=== PATIENT | female | born 1995 | race Caucasian/White ===

== ENCOUNTER 2023-07-02 16:31 | Emergency (ER) | payer MEDICAID, SELFPAY | END 2023-07-02 18:04 | disposition left against medical advice (07) | LOC: ER 17:09 | PROVIDERS: Emergency Provider Emergency Medicine; PCP Family Medicine | DX: S89.92XA Unspecified injury of left lower leg, initial encounter (principal); Z53.21 Procedure and treatment not carried out due to patient leaving prior to being seen by health care provider; X58.XXXA Exposure to other specified factors, initial encounter | CPT/HCPCS: 99284 ==

== ENCOUNTER 2023-07-03 10:14 | Emergency (ER) | payer MEDICAID, SELFPAY ==
[2023-07-03] VITALS (10 sets, daily range): PULSE 84–119; RESP 20–24; O2SAT 92–98; BMI 19.5
--- OUTSIDE RECORDS SUMMARY | 2023-07-03 10:19 | XMS_ITS | CCD ---
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 Name Role Phone NAZEMI, JOSHUA I Unavailable Unavailable NAZEMI, JOSHUA I Unavailable Unavailable CROWDER, IMER Unavailable Unavailable NAZEMI, JOSHUA I Unavailable Unavailable NAZEMI, JOSHUA I Unavailable Unavailable CROWDER, IMER Unavailable Unavailable NAZEMI, JOSHUA I Unavailable Unavailable CROWDER, IMER Unavailable Unavailable CROWDER, IMER Unavailable Unavailable GRETA RODRIGES Unavailable Unavailable CROWDER, IMER~[id number] UNKNOWN Unavailable Unavailable CROWDER, IMER~[id number] UNKNOWN Unavailable Unavailable CROWDER, IMER~[id number] UNKNOWN Unavailable Unavailable CROWDER, IMER~[id number] UNKNOWN Unavailable Unavailable CROWDER, IMER~[id number] UNKNOWN Unavailable Unavailable CROWDER, IMER~[id number] UNKNOWN Unavailable Unavailable EdwinSavanah Attending Unavaila ble Crowder, Imer Reese Referring Unavailab le Crowder, Imer Reese Primary Care Unavailab le EdwinSavanah Attending Unavaila ble Crowder, Imer Reese Referring Unavailab le Crowder, Imer Reese Primary Care Unavailab le EdwinSavanah Attending Unavaila ble Crowder, Imer Reese Referring Unavailab le Crowder, Imer Reese Primary Care Unavailab le CrowderImer Unavailable CrowderDO Imer Primary Care Provider DAYRON Fortune Attending Provider CROWDER, DR IMER Zuniga Attending Unavailable CROWDER, DR IMER Zuniga Admitting Unavailable CROWDER, DR IMER Zuniga Consulting Unavailable CROWDER, DR IMER Zuniga Attending Unavailable CROWDER, DR GONSALVESEL A Admitting Unavailable Unavailable Primary Care Provider Unavailabl e Medications Current Medications Medication Drug Class(es) Dates Sig (Normalized) Sig (Original) Acetaminophen (1 source) Acetaminophen (TYLENOL 8 HOUR ORAL) Take by mouth. 0 Active loratadine 10 mg oral tablet (1 source) take 1 tablet by mouth once daily loratadine (CLARITIN) 10 MG tablet Take 10 mg by mouth daily. 0 Active Senna, Sennosides, POWD (1 source) Senna, Sennoside s, POWD Completed/Discontinued Medications Medication Drug Class(es) Dates Sig (Normalized) Sig (Original) bacitracin 0.5 unt/mg topical ointment (3 sources) Start: 10-19-2020 Bacitracin Zinc 500 UNIT/GM External Ointment APPLY TOPICALLY TO WOUND ON RIGHT FOOT TWICE DAILY UNTIL HEALED Quantity: 28 Refills: 0 Ordered: 23-Oct-2020 DO Start : 19-Oct-2020 Active guaiFENesin 400 mg oral tablet (4 sources) Start: 02-02-2021 take 1 tablet by mouth twice daily as needed for congestion Chest Congestion Relief 400 MG Oral Tablet TAKE ONE TABLET BY MOUTH TWICE A DAY NEEDED FOR NASAL CONGESTION Quantity: 20 Refills: 0 Ordered: 02-Feb-2021 DO Start : 02-Feb-2021 Active take 1 tablet by mouth twice karol ly guaifenesin (MUCINEX) 600 MG SR tablet Take 600 mg by mouth 2 times daily. 0 Active No Reported Medications (1 source) No Reported Medications Quantity: 0 Refills: 0 Ordered: 17-Feb-2018 DO Active ondansetron 4 mg oral tablet (3 sources) Serotonin-3 Receptor Antagonist Start: 1 take 1 tablet by mouth every six hours as needed for nausea and vomiting Ondansetron HCl - 4 MG Oral Tablet TAKE ONE TABLET BY MOUTH EVERY 6 HOURS NEEDED FOR NAUSEA AND VOMITING FOR 2 DAYS Quantity: 5 Refills: 0 Ordered: 04-Jul-2021 DO Start : 15-May-2021 Active Ondansetron HCl (ZOFRAN ORAL) Take by mouth. 0 Active Problems Active Problems Problem Classification Problem Date Documented Date Episodic/Chronic Acquired foot deformities (3 sources) Acquired hallux valgus; Translations: [Hallux valgus (acquired)] Chronic Developmental disorders (1 source) Intellectual disability; Translations: [Unspecified intellectual disabilities] Onset: 12-17-2013 Chronic Genitourinary symptoms and ill-defined conditions (5 sources) Frequency of micturition; Translations: [Urgency of urination] Onset: 11-22-2021 Episodic Heart valve disorders (1 source) Pulmonic valve stenosis; Translations: [Nonrheumatic pulmonary valve stenosis] Onset: 12-17-2013 Chronic Other acquired deformities (4 sources) Contracture of hip joint; Translations: [Contracture of joint, pelvic region and thigh] Chronic Other acquired deformities (1 source) Scoliosis deformity of spine; Translations: [Scoliosis, unspecified] Onset: 12-17-2013 Chronic Other acquired deformities (2 sources) Acquired deformity of hip; Translations: [Other acquired deformities of hip] Episodic Other acquired deformities (2 sources) Other specified acquired deformities of left thigh; Translations: [Acquired dysplasia of left hip] Episodic Other congenital anomalies (1 source) Congenital fusion of spine; Translations: [Other congenital malformations of spine, not associated with scoliosis] 09-04-2021 Chronic Other congenital anomalies (1 source) Congenital anomaly of face; 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, unspecified] 09-04-2021 Chronic Other connective tissue disease (4 sources) Spasticity; Translations: [Abnormal involuntary movements] Episodic Other eye disorders (1 source) Nystagmus; Translations: [Unspecified nystagmus] Onset: 12-17-2013 Chronic Other nervous system disorders (1 source) Other acute postprocedural pain; Translations: [Other acute postprocedural pain] Onset: 09-04-2017 Episodic Residual codes; unclassified (1 source) Intact skin; Translations: [Other specified health status] 09-04-2021 Episodic Residual codes; unclassified (1 source) Other specified health status; Translations: [Other specified conditions influencing health status] Episodic Unclassified (1 source) inverted duplication of chromosome 7 / inverted duplication of chromosome 7() Onset: 09-12-2017 Unclassified (1 source) pulmonic stenosis / pulmonic stenosis() Onset: 09-12-2017 Unclassified (1 source) POST OP SUTURE REMOVAL,WEVERE INTELLECTUAL DISABILITY / POST OP SUTURE REMOVAL,WEVERE INTELLECTUAL DISABILITY() Onset: 09-12-2017 Unclassified (1 source) Unknown / UNK(Unknown) Onset: 08-26-2017 Past or Other Problems Problem Classification Problem Date Documented Da te Episodic/Chronic Disorders of teeth and jaw (2 sources) Dental caries; Translations: [Dental caries, unspecified] Onset: 01-06-2017 01-06-2017 Episodic Unclassified (1 source) inverted duplication of chromosome 7; Translations: [inverted duplication of chromosome 7] Onset: 09-12-2017 Unclassified (1 source) pulmonic stenosis; Translations: [pulmonic stenosis] Onset: 09-12-2017 Unclassified (1 source) POST OP SUTURE REMOVAL,WEVERE INTELLECTUAL DISABILITY; Translations: [POST OP SUTURE REMOVAL,WEVERE INTELLECTUAL DISABILITY] Onset: 09-12-2017 Unclassified (4 sources) No history of clinical finding in subject; Translations: [No significant past medical history] Results Test Name Value Interpretation Reference Range Facility Progress Noteson 10-11-2022 Mobile Unit Assistant Authentication Interface Message Text Received call on 10/10 from Anju @ [facility] - requesting to reschedule the PSE appointment for today -- Offered another appointment on 10/14 and 10/15 -- Anju declined -- I explained to her that the surgery on 11/01 would be canceled. ----- Tuesday, October 11, 2022 at 9:35:03 AM ----- ----- Provider: Donna Clay Specialist -- Clinic: [place] ----- Normal [facility] Telephone Encounteron 2022 Mobile Unit Assistant Authentication Interface Message Text Reason for Escalation: Oneyda from [facility] calling in. She wanted to know more information about surgery date, time, and location. It looks like PSE has not been completed just yet. She wanted to speak to the OR leaf tier directly if possible. Oneyda can be reached at [phone]. E-mail sent to Ana 09/23/22 Normal [facility] Progress Noteson 09-03-2022 Mobile Unit Assistant Authentication Interface Message Text [facility] facility (Anju) was contacted for PSE AND OR scheduled -- confirmed information with guardian, also was informed importance of receiving PSE call -- if not received surgery will be canceled----- Saturday, September 03, 2022 at 11:11:13 AM ----- ----- Provider: Donna Clay Specialist -- Clinic: [place] ----- Normal [facility] UA (CLEAN/CATCH) BLASTING CAP ASSEMBLER/MICRO I F IND.on 11-22-2021 Bilirubin Ql (U) Negative Normal NEGATIVE [facility] Comment on above: Performed By: #### U ACSIND, UMICRO #### [facility] [address] [address] [address] Noble Faulkner Clarity (U) CLEAR Normal CLEAR [facility] Comment on above: Performed By: #### U ACSIND, UMICRO #### [facility] [address] [address] [address] Noble Faulkner Color (U) LT. YELLOW Normal YELLOW [facility] Comment on above: Performed By: #### U ACSIND, UMICRO #### [facility] [address] [place] [address] Dr. Noble Faulkner Glucose Ql (U) Negative Normal NEGATIVE [facility] Comment on above: Performed By: #### U ACSIND, UMICRO #### [facility] [address] [address] [address] Noble Faulkner Hemoglobin Ql (U) Negative Normal NEGATIVE [facility] Comment on above: Performed By: #### U ACSIND, UMICRO #### [facility] [address] [address] [address] Noble Faulkner Ketones Ql (U) Negative Normal NEGATIVE [facility] Comment on above: Performed By: #### U ACSIND, UMICRO #### [facility] [address] [address] [address] Noble Faulkner LEUKOCYTES TRACE Abnormal NEGATIVE [facility] Comment on above: Performed By: #### U ACSIND, UMICRO #### [facility] [address] [address] [address] Noble Faulkner Nitrite Ql (U) Negative Normal NEGATIVE [facility] Comment on above: Performed By: #### U ACSIND, UMICRO #### [facility] [address] [address] [address] Noble Faulkner pH (U) 7.5 [pH] Normal 5-9 [facility] Comment on above: Performed By: #### U ACSIND, UMICRO #### [facility] [address] [place] [address] Dr. Noble Faulkner SPEC GRAVITY 1.015 Normal 1.005-<=1.02 5 [facility] Comment on above: Performed By: #### U ACSIND, UMICRO #### [facility] [address] [place] [address] Dr. Noble Faulkner UA PROTEIN Negative Normal NEGATIVE/ TRACE [facility] Comment on above: Performed By: #### U ACSIND, UMICRO #### [facility] [address] [place] [address] Dr. Noble Faulkner UR MICRO IND INDICATED Normal [facility] Comment on above: Performed By: #### U ACSIND, UMICRO #### [facility] [address] [place] [address] Dr. Noble Faulkner Urobilinogen Qn (U) 0.2 {Don'U}/dL Normal 0.2 - 1. 0 [facility] Comment on above: Performed By: #### U ACSIND, UMICRO #### [facility] [address] [place] [address] Dr. Noble Faulkner URINE MICROSCOPIC ONLYon AMORPHOUS CRYSTALS FEW Normal [facility] Comment on above: Performed By: #### U ACSIND, UMICRO #### [facility] [address] [place] [address] Dr. Noble Faulkner BACTERIA TRACE Abnormal NONE SEEN [facility] Comment on above: Performed By: #### U ACSIND, UMICRO #### [facility] [address] [place] [address] Dr. Noble Faulkner Bacteria identified Cx Nom (U) NOT INDICATED Normal [facility] Comment on above: Performed By: #### U ACSIND, UMICRO #### [facility] [address] [place] [address] Dr. Noble Faulkner CAST NONE SEEN Normal NONE SEEN [facility] Comment on above: Performed By: #### U ACSIND, UMICRO #### [facility] [address] [address] [address] Noble Faulkner Crystals LM Nom (Urine sed) SEEN Abnormal NONE SEEN [facility] Comment on above: Performed By: #### U ACSIND, UMICRO #### [facility] [address] [address] [address] Noble Faulkner Epithelial cells LM Ql (Urine sed) FEW Abnormal NONE SEEN /RARE [facility] Comment on above: Performed By: #### U ACSIND, UMICRO #### [facility] [address] [address] [address] Noble Faulkner MUCOUS NONE SEEN Normal NONE SEEN [facility] Comment on above: Performed By: #### U ACSIND, UMICRO #### [facility] [address] [address] [address] Noble Faulkner RBC NONE SEEN Abnormal 0-2 [facility] Comment on above: Performed By: #### U ACSIND, UMICRO #### [facility] [address] [address] [address] Noble Faulkner WBC 0-2 Abnormal NONE SEEN [facility] Comment on above: Performed By: #### U ACSIND, UMICRO #### [facility] [address] [address] [address] Noble Faulkner Established Visit (Orthopaed ic Surgery)on 09-24-2021 Established Visit (Orthopaedic Surgery) Diagnoses/Problems Assessed Hallux valgus, acquired (735.0) (M20.10) Spasticity (781.0) (R25.2) Patient Discussion/Summary Yessys feet do show signs of flat feet, valgus deformity, hallux valgus, but non of these is severe and causes no pain or problems with function. She has flatter feet because of the hallux valgus but an arch is still present. 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 We could not expect her to successfully protect her feet post-operatively if we were to correct them and she might lose the ability to walk. She would not benefit from custom inserts, but should wear well cushioned shoes with wide toe boxes. I felt that she was not a good candidate for surgery before, and she is still not a good candidate. I don't imagine that will change in the future. Provider Impressions She does have bilateral hallux valgus, but she does not have pain with this and her gait pattern is pretty typical appearing other than her mild crouch. It does not seem to affect her feet at all. She is not in any pain with walking. She would benefit the most from shoes that accommodate her feet, including those with a wide toe box. Surgery would be both difficult and there would be a long period of recovery in which she would not be allowed to bear weight. I am not sure if she could be compliant with these restrictions. I also worry that she would lose enough strength to lose the ability to walk following surgery. Her hip has really not changed in the last 6 months and it is unlikely to do so anytime in the near future. I discussed with her caregiver that as long as she is not in any pain, there is no need for routine follow-up for this. We will see her back as needed. History of Present Illness Asha is a 25 year old female with a history of hip dysplasia, inverted duplication of chromosome 7, spasticity, global developmental delay, and congenital fusion of several vertebrae. She presents for follow up of hallux valgus and toe walking today. Her mother is concerned about her gait. She lives in [facility] and is with her caregiver today. She feels that her gait has not changed over the past year. She does not believe that Asha is in pain. Asha does not currently wear any braces or orthotics. She only uses a wheelchair for long distances. She does not take any medications for spasticity. She has had Achilles lengthening and toe surgeries in the past with Dr. Rodriges at [facility]. There has been no concern on the part of the staff at her facility that she has had any pain since we last saw her. 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) Hallux valgus, acquired (735.0) (M20.10) Spasticity (781.0) (R25.2) Past Medical History Problems History of No significant past medical history Surgical History Problems History of Hip Surgery History of Subcutaneous Tenotomy Achilles Tendon Under Gen Anesthesia Family History Mother No pertinent family history Social History Problems Never a smoker Allergies Medication No Known Drug Allergies Recorded By: Savanah Pineda; 02/17/2018 10:59:35 PM Current Meds Medication NameInstruction Bacitracin Zinc 500 UNIT/GM External OintmentAPPLY TOPICALLY TO WOUND ON RIGHT FOOT TWICE DAILY UNTIL HEALED Chest Congestion Relief 400 MG Oral TabletTAKE ONE TABLET BY MOUTH TWICE A DAY NEEDED FOR NASAL CONGESTION Ondansetron HCl - 4 MG Oral TabletTAKE ONE TABLET BY MOUTH EVERY 6 HOURS NEEDED FOR NAUSEA AND VOMITING FOR 2 DAYS Physical Exam General: Well developed, well nourished female in no acute distress. Skin: The skin is intact with no evidence of abrasions, bruises, or swelling. Vascular: There are 2+ pulses in both lower extremities and brisk capillary refill. Neuro: The light touch sensation is intact in both legs. She has bilateral hip flexor contractures, but she straightens out a little more with assistance while standing. She has very mild bilateral knee flexion contractures. She can walk independently. She has good knee and ankle ROM. She does not have excessive amounts of internal or external rotation through her hips. She has excellent mobility of her arms including FROM of both shoulders, elbows, forearms, and wrists. She sat in her chair and was extremely reluctant to stand, but could without difficulty. She has flat feet. She sat in her wheelchair with minimal assistance. She has developed pretty significant hallux valgus bilaterally, but the heel cords are not tight. Signatures Electronically signed by : Savanah Pineda MD; Sep 30 2021 12:40PM EST (Author) Normal [facility] Established Visit (Orthopaed ic Surgery)on 02-20-2021 Established Visit (Orthopaedic Surgery) Diagnoses/Problems Assessed Spasticity (781.0) (R25.2) Acquired dysplasia of left hip (736.39) (M21.852) Hallux valgus, acquired (735.0) (M20.10) Provider Impressions She does have bilateral hallux valgus, but she does not have pain with this and her gait pattern is pretty typical appearing other than her mild crouch. It does not seem to affect her feet at all. She is not in any pain with walking. She would benefit the most from shoes that accommodate her feet, including those with a wide toe box. Surgery would be both difficult and there would be a long period of recovery in which she would not be allowed to bear weight. I am not sure if she could be compliant with these restrictions. I also worry that she would lose enough strength to lose the ability to walk following surgery. Her hip has really not changed in the last 6 months and it is unlikely to do so anytime in the near future. I discussed with her caregiver that as long as she is not in any pain, there is no need for routine follow-up for this. We will see her back as needed. History of Present Illness Asha is a 25 year old female who presents today for follow up. She was recently diagnosed with a foot fungus and hallux valgus of both feet. She is with her caregiver and he does not believe that she is in any pain. She is ambulatory and uses the wheelchair for community use. She has a history of hip dysplasia, inverted duplication of chromosome 7, spasticity, global developmental delay, and congenital fusion of several vertebrae. She has been living in [facility] for 5 years. Asha does not currently wear any braces or orthotics. She does not take any medications for spasticity. 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) Spasticity (781.0) (R25.2) Past Medical History Problems History of No significant past medical history Surgical History Problems History of Hip Surgery History of Subcutaneous Tenotomy Achilles Tendon Under Gen Anesthesia Family History Mother No pertinent family history Social History Problems Never a smoker Allergies Medication No Known Drug Allergies Recorded By: Savanah Pineda; 02/17/2018 10:59:35 PM Current Meds Medication NameInstruction Bacitracin Zinc 500 UNIT/GM External OintmentAPPLY TOPICALLY TO WOUND ON RIGHT FOOT TWICE DAILY UNTIL HEALED Chest Congestion Relief 400 MG Oral TabletTAKE ONE TABLET BY MOUTH TWICE A DAY NEEDED FOR NASAL CONGESTION Physical Exam General: Well developed, well nourished female in no acute distress. Skin: The skin is intact with no evidence of abrasions, bruises, or swelling. Vascular: There are 2+ pulses in both lower extremities and brisk capillary refill. Neuro: The light touch sensation is intact in both legs. She has bilateral hip flexor contractures, but she straightens out a little more with assistance while standing. She has very mild bilateral knee flexion contractures. She can walk independently. She has good knee and ankle ROM. She does not have excessive amounts of internal or external rotation through her hips. She has excellent mobility of her arms including FROM of both shoulders, elbows, forearms, and wrists. She sat on the floor for about half of her visit today, and needed a little assistance to stand, but then she stood quite well and walked relatively easily to her wheelchair. She sat in her wheelchair with minimal assistance. She has developed pretty significant hallux valgus bilaterally, but the heel cords are not tight. Signatures Electronically signed by : Savanah Pineda MD; Feb 20 2021 3:07PM EST (Author) Normal [employer] Progress Noteon 02-27-2018 HIM IP Note OR Mobile Unit Assistant Normal [facility] Progress Noteon 01-23-2018 HIM IP Note OR Mobile Unit Assistant Normal [facility] Progress Noteon 12-26-2017 HIM IP Note OR Mobile Unit Assistant Normal [facility] Progress Noteon 12-05-2017 HIM IP Note OR Mobile Unit Assistant Normal [facility] Progress Noteon 11-21-2017 HIM IP Note OR Mobile Unit Assistant Normal [facility] Progress Noteon 11-09-2017 HIM IP Note OR Mobile Unit Assistant Normal [facility] Progress Noteon 10-16-2017 HIM IP Note OR Mobile Unit Assistant Normal [facility] Progress Noteon 10-10-2017 HIM IP Note OR Mobile Unit Assistant Normal [facility] Progress Noteon 09-27-2017 HIM IP Note OR Mobile Unit Assistant Normal [facility] Progress Noteon 09-17-2017 HIM IP Note OR Mobile Unit Assistant Normal [facility] Homocysteineon 09-13-2017 Homocysteine 8.5 umol/L Normal <15.0 [facility] Comment on above: Result Comment: Perf ormed at [address] [place], [place] [id number] ([phone] Performed By: #### C BC, HOCYS ####[facility] [place], [place] [id number] #### CP ####[address] [place] [address] CBCon 09-12-2017 Erythrocyte distribution width Auto Ratio (RBC) 11.9 % Normal 11.8-14.4 [facility] Comment on above: Performed By: #### C BC, HOCYS ####[address] [address] #### CP ####[address] [place] [address] Erythrocytes (RBC) 4.79 10*6/uL Normal 3.95-5.11 [facility] Comment on above: Performed By: #### C MARYA, HOCYS ####[address] [address] #### CP ####[address] [place] [address] Erythrocytes (RBC) 0.0 per 100 WBC Normal 0.0 [facility] Comment on above: Result Comment: Perf ormed at [address] [address] Performed By: #### C MARYA, HOCYS ####[address] [address] #### CP ####[address] [place] [address] Hematocrit (HCT) 42.9 % Normal 36.3-47.1 [facility] Comment on above: Performed By: #### C MARYA, HOCYS ####[address] [address] #### CP ####[address] [place] [address] Hemoglobin mass conc (Bld) 14.9 g/dL Normal 11.9-15.1 [facility] Comment on above: Performed By: #### C BC, HOCYS ####[address] [address] [address] #### CP ####[address] [place] [address] MCH 31.1 pg Normal 25.2-33.5 [facility] Comment on above: Performed By: #### C MARYA, HOCYS ####[address] [address] #### CP ####[address] [place] [address] MCHC mass conc (RBC) 34.7 g/dL Normal 28.4-34.8 [facility] Comment on above: Performed By: #### C MARYA, HOCYS ####[address] [address] #### CP ####[address] [place] [address] MCV 89.6 fL Normal 82.6-102.9 [facility] Comment on above: Performed By: #### C MARYA, HOCYS ####[address] [address] #### CP ####[address] [place] [address] Platelet mean volume (PMV) 10.9 fL Normal 8.1-13.5 [facility] Comment on above: Performed By: #### C MARYA, HOCYS ####[address] [address] #### CP ####[address] [place] [address] Platelets 170 10*3/uL Normal 138-453 [facility] Comment on above: Performed By: #### C MARYA, HOCYS ####[address] [address] #### CP ####[address] [place] [address] WBC (Leukocytes) 8.7 10*3/uL Normal 4.5-13.5 [facility] Comment on above: Performed By: #### C MARYA, HOCYS ####[address] [address] #### CP ####[address] , [facility]83 Comp Metabolic Profon 2017 (cont.) Normal [facility] Comment on above: Result Comment: Aver age GFR for 20-29 years old: 116 mL/min/1.73sq mChronic Kidney Disease: <60 mL/min/1.73sq mKidney failure: <15 mL/min/1.73sq meGFR calculated using average adult body mass. Additional eGFR calculator available at:http://www.3sun.[employer]/multiple_crcl_2012.htm Performed By: #### Alexys MALHOTRA HOCYS ####[address] [address] #### CP ####[address] [place] [address] Alanine aminotransferase (ALT) 18 U/L Normal 5-33 [facility] Comment on above: Performed By: #### Alexys MALHOTRA, HOCYS ####[address] [address] #### CP ####[address] [place] [address] Albumin 4.2 g/dL Normal 3.5-5.2 [facility] Comment on above: Performed By: #### Alexys MALHOTRA, HOCYS ####[address] [address] #### CP ####[address] [place] [address] Albumin/Globulin Ratio 1.3 {ratio} Normal 1.0-2.5 [facility] Comment on above: Performed By: #### C BC, HOCYS ####[address] [address] #### CP ####[address] [place] [address] Alkaline Phos 112 U/L High 35-104 [facility] Comment on above: Performed By: #### C BC, HOCYS ####[address] [address] #### CP ####[address] [place] [address] Anion gap 12 mmol/L Normal 9-17 [facility] Comment on above: Performed By: #### C BC, HOCYS ####[address] [address] #### CP ####[address] [place] [address] Aspartate aminotransferase (AST) 25 U/L Normal <32 [facility] Comment on above: Performed By: #### C BC, HOCYS ####[address] [address] #### CP ####[address] [place] [address] Bilirubin Ql (U) 0.60 mg/dL Normal 0.3-1.2 [facility] Comment on above: Performed By: #### C BC, HOCYS ####[address] [address] #### CP ####[address] [place] [address] BUN/CRE Ratio 25 High 9-20 [facility] Comment on above: Performed By: #### C BC, HOCYS ####[address] [address] #### CP ####[address] [place] [address] Calcium 9.5 mg/dL Normal 8.6-10.4 [facility] Comment on above: Performed By: #### C BC, HOCYS ####[address] [address] #### CP ####[address] [place] [address] Chloride 103 mmol/L Normal 98-107 [facility] Comment on above: Performed By: #### C BC, HOCYS ####[address] [address] #### CP ####[address] [place] [address] CO2 24 mmol/L Normal 20-31 [facility] Comment on above: Performed By: #### C BC, HOCYS ####[address] [address] #### CP ####[address] [place] [address] Creatinine 0.69 mg/dL Normal 0.50-0.90 [facility] Comment on above: Performed By: #### C BC, HOCYS ####[address] [address] #### CP ####[address] [place] [address] eGFR (non-black) mL/min/{1.73_m2} Normal >60 [facility] Comment on above: Performed By: #### C BC, HOCYS ####[place] [place] [address] #### CP ####[address] [place] [address] Glucose mass conc 97 mg/dL Normal 70-99 [facility] Comment on above: Performed By: #### C BC, HOCYS ####[address] [address] #### CP ####[address] [place] [address] Potassium molar conc 4.0 mmol/L Normal 3.7-5.3 [facility] Comment on above: Performed By: #### C BC, HOCYS ####[address] [address] #### CP ####[address] [place] [address] Protein 7.5 g/dL Normal 6.4-8.3 [facility] Comment on above: Performed By: #### C BC, HOCYS ####[address] [address] #### CP ####[address] [place] [address] Sodium 139 mmol/L Normal 135-144 [facility] Comment on above: Performed By: #### C BC, HOCYS ####[address] [address] #### CP ####[address] [place] [address] Staging: Normal [facility] Comment on above: Result Comment: Stag e 1: Some kidney damage normal GFRStage 2: Mild kidney damage GFR 60-89Stage 3: Moderate kidney damage GFR 30-59Stage 4: Severe kidney damage GFR 15-29Stage 5: Severe kidney damage GFR <15ESRD - chronic treatment by dialysis or transplantPerformed at [address] [place] [address] Performed By: #### C BC, HOCYS ####[facility] [address] [place] [address] #### CP ####[address] [place] [address] Urea nitrogen 17 mg/dL Normal 6-20 [facility] Comment on above: Performed By: #### C BC, HOCYS ####[facility] [address] [place] [address] #### CP ####[address] [place] [address] History and Physicalon 09-12 HIM IP Note OR Mobile Unit Assistant Normal [facility] Op Noteon 09-12-2017 HIM IP Note OR Mobile Unit Assistant Normal [facility] Progress Noteon 09-12-2017 HIM IP Note OR Mobile Unit Assistant Normal [facility] HIM IP Note OR Mobile Unit Assistant Normal [facility] Progress Noteon 09-05-2017 HIM IP Note OR Mobile Unit Assistant Normal [facility] HCG Screen, Bloodon 09-05-19 18 HCG Qn Negative Normal NEG [facility] Comment on above: Result Comment: Spec imens with hCG levels near the threshold of the test (25 mIU/mL) may give a negative or indeterminate result. In such cases, another test should be performed with a new specimen in 48-72 hours. If early is suspected clinically in this setting, correlation with quantitative serum b-hCG level is suggested.[facility] has confirmed the use of plasma for this test. This has not been cleared or approved by the U.S. Food and Drug Administration. The FDA has determined that such clearance is not necessary.Performed at [address] [place] [id number] ([phone] Performed By: #### H CG ####[address] [place] [address] Op Noteon 09-04-2017 HIM IP Note OR Mobile Unit Assistant Normal [facility] Progress Noteon 09-04-2017 HIM IP Note OR Mobile Unit Assistant Normal [facility] HIM IP Note OR Mobile Unit Assistant Normal [facility] HIM IP Note OR Mobile Unit Assistant Normal [facility] HIM IP Note OR Mobile Unit Assistant Normal [facility] HIM IP Note OR Mobile Unit Assistant Normal [facility] Surgical Pathologyon 018 Surgical Pathology (NOTE)[id number] Y LABORATORIESCONSULTING PATHOLOGISTS [facility] [id number] [place] [address]. [place] [id number] Fax: SURGICAL PATHOLOGY CONSULTATIONPatient Name: [facility] Rec: [id number] Number: [id number]: 09/04/2017Received: 09/05/2017Reported: 09/09/2017 11:14-- Diagnosis --SKIN AND SOFT TISSUE, BACK, EXCISIONS: - MULTIPLE PORTIONS OF INFLAMED KELOIDS.Home Avila M.D.Electronically Signed Outjet09/05/2017Cash davies InformationPre-op Diagnosis: PAINFUL CYSTS ON BACK Operative Findings: BACK LESIONSOperation Performed: INCISION AND DRAINAGESource of Specimen1: BACK LESIONS (A)Gross Description RADHA SMITH BACK LESIONS Fragments of unoriented yu skinand subcutaneous tissue, 4.8 x 4.5 x 1.2 cm in aggregate. Sectioningreveals fibrotic cut surfaces. Entirely in 3cs. as Microscopic DescriptionThe sections show dermis with a proliferation of densely packedeosinophilic collagen bundles arranged in a haphazard array. Withinthe thickened collagen bundles, there are pseudocystic spacescontaining basophilic material, suggestive of corticosteroid deposits.In some areas, fascicles contain cells with foamy cytoplasm. An [id number] was performed and appears negative in these foci,excluding a granular cell tumor. Controls stain appropriately. Normal [facility] History and Physicalon 09-01 [facility] IP Note OR Mobile Unit Assistant Normal [facility] CNOVon 08-26-2017 CNOV Office Visit (ORTPMN) JOB SMITH TYRA Zuniga ([id number]) 1995 FDate Time Provider Department08/26/17 10:45 AM GRETA RODRIGES ORTPMN During your visit today, we recorded the following information about you:Greta Rodriges MD 08/26/2017 11:14 AM SignedI have reviewed the history and physical obtained and documented by theresident and I personally participated in the coelho components. I agree with thefindings and plan of care, with the additions contained within my dictation.Greta Rodriges M.D.Timoteo Head DO 08/26/2017 11:23 AM SignedPEDIATRIC ORTHOPEDIC CONSULTHPI:Radha Smith is a 21 year old female with h/p CP who is here for anevaluation of spine/pelvis. She is non communicative. Her transporter isunaware of what needs to be checked. There has been no change in Radha'sactivity level. She does walk which hasn't changed. She doesn't complain ofpain.No past medical history on file.Current Outpatient Prescriptions:baclofen 10 mg ORAL tablet Take 1 tablet by mouth three times daily. Start with1 tab daily at bedtime, increase to a maximum dose of 2 tabs three times a dayNo current facility-administered medications for this visit.ALLERGIESNo Known AllergiesAll history, allergies and medications have been reviewed.EXAM:General: uncooperative but she does walk in office. She is not a fan of havingher legs manipulatedNegative for: tendernessNeurovascular: intactPHYSICAL EXAMINATION:General physical exam reveals a well-developed, well?nourished female in noacute distress.AlertExternal appearance of the eyes, ears and nose is normal.Hearing is grossly intact.Respirations are unlabored with normal chest expansion.Skin is without rashes, lesions or ulcers.Normal skin temperature, turgor and texture.MUSCULOSKELETAL EXAMNormal gait and station.The spine is clinically straight. There is no shoulder height asymmetry.. Thehead is centered over the midline. The pelvis is forward tilted. There is nothoracic or lumbar asymmetry with forward bendingMotor strength is 5/5 in the hip flexors, knee extensors, ankle dorsiflexorsand EHL.X-ray: not doneIMPRESSION:CP checkPLAN:Would like to have x-rays sent in to look at. Since her activity is stable andshfransico isn't having pain wouldn't recommend any change at this point. Will need toreview x-rays for final recommendations.Patient Instructions:Send x-rays for review. 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 She is non communicative. Her transporteris unaware of what needs to be checked. There has been no change inMaddison's activity level. She does walk which hasn't changed. She doesn'tcomplain of pain.No past medical history on file.Current Outpatient Prescriptions:baclofen 10 mg ORAL tablet Take 1 tablet by mouth three times daily. Startwith 1 tab daily at bedtime, increase to a maximum dose of 2 tabs threetimes a dayNo current facility-administered medications for this visit.ALLERGIESNo Known AllergiesAll history, allergies and medications have been reviewed.EXAM:General: uncooperative but she does walk in office. She is not a fan ofhaving her legs manipulatedNegative for: tendernessNeurovascular: intactPHYSICAL EXAMINATION:General physical exam reveals a well-developed, well?nourished female inno acute distress.AlertExternal appearance of the eyes, ears and nose is normal.Hearing is grossly intact.Respirations are unlabored with normal chest expansion.Skin is without rashes, lesions or ulcers.Normal skin temperature, turgor and texture.MUSCULOSKELETAL EXAMNormal gait and station.The spine is clinically straight. There is no shoulder height asymmetry.. The head is centered over the midline. The pelvis is forward tilted.There is no thoracic or lumbar asymmetry with forward bendingMotor strength is 5/5 in the hip flexors, knee extensors, ankledorsiflexors and EHL.X-ray: not doneIMPRESSION:CP checkPLAN:Would like to have x-rays sent in to look at. Since her activity is stableand she isn't having pain wouldn't recommend any change at this point.Will need to review x-rays for final recommendations.Patient Instructions:Send x-rays for review. Continue PT with emphasis on stretching.Timoteo Head, DO Normal [facility] PROGRESS HNO ID: [id number] thor: Greta Giordano: (none)Author Type: PhysicianType: Progress NotesFiled: 08/26/2017 11:14 AMNote Text:I have reviewed the history and physical obtained and documented by theresident and I personally participated in the coelho components. I agree withthe findings and plan of care, with the additions contained within mydictation.Greta Rodriges M.D. Normal [facility] Progress Noteon 08-20-2017 HIM IP Note OR Mobile Unit Assistant Normal [facility] HIM IP Note OR Mobile Unit Assistant Normal [facility] Progress Noteon 08-09-2017 HIM IP Note OR Mobile Unit Assistant Normal [facility] OT-XR HIPS RANGEL 5V W PELVIS I MPORTon 07-09-2017 OT-XR HIPS RANGEL 5V W PELVIS IMPORT Images were obtained outside of [facility] [id number] Normal [facility] OT-XR L-SPINE MIN 4 VIEWS IM PORTon 07-09-2017 OT-XR L-SPINE MIN 4 VIEWS IMPORT Images were obtained outside of [facility] [id number] Normal [facility] Vital Signs Date Time Vital Sign Value Performing Clinician Satnam saravia 09-04-2021 15:32-0400 Body height 147.32 cm DO Imer Crowder Work Phone: [facility] 09-04-2021 15:32-0400 Body mass index (BMI) [Ratio] 30.2 kg/m2 DO Imer Crowder Work Phone: [facility] 09-04-2021 15:32-0400 Body weight 65.48 kg DO Imer Crowder Work Phone: [facility] 09-04-2021 15:12-0400 Body temperature 98.4 [degF] DO Imer Crowder Work Phone: [facility] 09-04-2021 15:12-0400 Respiratory rate 24 /min DO Imer Crowder Work Phone: [facility] Encounters Encounter Date Encounter Type Care Provider Facility Start: 09-23-2022 Telephone encounter Juan Manuel mills DDS Work Phone: [facility] Comment on above: Dental Start: 11-22-2021 End: 11-22-[address] IMER CROWDER Facility:[facility] Start: 09-24-2021 Office outpatient vi sit 15 minutes Imer Crowder Work Phone: [facility] [address] Work Phone: Start: 09-24-2021 Patient encounter procedure Imer Crowder Work Phone: [facility] Work Phone: Start: 09-05-[address] IMER CROWDER Fac ility:[facility] Start: 09-04-2021 End: 09-04-2021 Discharged Recurring DO Imer Crowder Work Phone: [facility] [place] Start: 02-20-2021 Office outpatient vi sit 15 minutes Imer Crowder Work Phone: [facility] Work Phone: Start: 02-07-2021 AUDIT Imer starkey Work Phone: [facility] Work Phone: Start: 09-14-2018 Patient encounter procedure Savanah Pineda Facility:[id number] Start: 08-18-2018 Patient encounter procedure Savanah Pineda Facility:[id number] Start: 04-28-2018 End: 04-29-2018 Patient encounter procedure IMER~[id number] UNKNOWN CROWDER Facility:[facility] [place] [place] Start: 02-17-2018 Patient encounter procedure Savanah Pineda Facility:[id number] Start: 10-07-2017 End: 10-08-2017 Patient encounter procedure IMER~[id number] UNKNOWN CROWDER Facility:[facility] [place] [place] Start: 09-12-2017 End: 09-13-2017 Ambulatory JOSHUA I NAZEMI [facility] Start: 09-04-2017 End: 09-04-2017 Ambulatory JOSHUA I NAZEMI [facility] Start: 08-26-2017 End: 08-27-2017 Ambulatory GRETA RODRIGES [facility] Start: 08-05-2017 End: 08-06-2017 Patient encounter procedure IMER~[id number] UNKNOWN CROWDER Facility:[facility] [place] [place] Procedures Date Procedure Procedure Detail Performing Clinician Start: 09-12-2017 DISCHARGE PATIENT STEPHON ZEMI Start: 09-12-2017 CBC BETTIZEMI Start: 09-12-2017 COMPREHENSIVE METABO LIC PANEL BETTIZEMI Start: 09-12-2017 HOMOCYSTEINE, SERUM BET TIZEMI Start: 09-04-2017 DISCHARGE PATIENT STEPHON ZEMI Start: 09-04-2017 SURGICAL PATHOLOGY BETT IZEMI Start: 09-04-2017 HCG, SERUM, QUALITATIVE BETTIZEMI Start: 09-04-2017 HCG, QUANTITATIVE, BETTIZEMI Start: 09-04-2017 INSERT PERIPHERAL IV BE TTIZEMI Start: 09-04-2017 , URINE BETTIZ LOURDES Hip Surgery Imer wilcox Work Phone: Subcutaneous Tenotom y Achilles Tendon Under Gen Anesthesia Imer Crowder Work Phone: Plan of Treatment Date Care Activity Detail Author Start: 2046 Shingles (RZV) Vacci ne (1 of 2) Shingles (RZV) Vaccine (1 of 2) [facility] Start: 11-01-2022 End: 11-01-2022 Admission to same day surgery center 11/01/2022 Surgery Ambulatory Surgery Yordy Bronson, DDS [address] [place] [address] DENTAL RESTORATIONS [facility] Comment on above: DENTAL RESTORATIONS Start: 11-01-2022 End: 11-01-2022 DENTAL RESTORATIONS DENTAL RESTORATIONS Routine scheduled Caries 11/01/2022 11:28 AM EDT [facility] Start: 11-01-2022 Subsequent hospital visit by physician 11/01/2022 Hospital Encounter Ambulatory Surgery Lizbeth Romerorebeca Yordy, DDS [address] [place] [address] [facility] Start: 10-11-2022 End: 10-11-2022 Patient encounter procedure 10/11/2022 Office Visit Pediatric Comp Care Ayad Heck MD [facility] [place] [address] [facility] Start: 02-20-2021 FUV, Provider: Savanah Pineda, Status: Pen, Time: 1:45 PM FUV, Provider: Savanah Pineda, Status: Pen, Time: 1:45 PM [facility] Work Phone: Start: 2017 Screening for malign ant neoplasm of cervix Pap Smear [facility] Start: 2014 Hepatitis C screening [facility]atitis C [facility] Start: 2014 Tetanus + diphtheria + acellular pertussis vaccine (product) [facility] Start: 12-25-2011 HIV screening HIV Test [facility] Start: 12-25-2007 Vaccination for cabrera n papillomavirus Human Papilloma (HPV) Vaccine (1 - 2-dose series) [facility] Start: 06-26-1997 COVID-19 Vaccine (#1) COVID-19 Vacci ne (#1) [facility] Immunizations Immunization Date Immunization Notes Care Provider Fa cili 04-04-2021 influenza, injectabl e, quadrivalent, preservative free [facility]ias[facility] DDS Work Phone: [facility] 03-15-2014 TD(adult) unspecifie d formulation [facility]Drisshni DDS Work Phone: [facility] 09-21-2010 hepatitis A vaccine, pediatric/adolescent dosage, 2 dose schedule [facility] DDS Work Phone: [facility] 09-25-2009 hepatitis A vaccine, pediatric/adolescent dosage, 2 dose schedule [facility] DDS Work Phone: [facility] 09-25-2009 meningococcal polysa ccharide vaccine (MPSV4) [facility]: [facility] 04-22-2002 diphtheria and tetan us toxoids, adsorbed for pediatric use [facility] Work [facility]: [facility] 04-22-2002 measles, mumps and r ubella virus vaccine [facility] Work [facility]: [facility] 04-22-2002 poliovirus vaccine, inactivated [facility] Work Phone: [facility] 04-22-2002 varicella virus vaccine Lait h Id-Drisshni DDS Work Phone: [facility] 01-14-2002 diphtheria and tetan us toxoids, adsorbed for pediatric use Juan Manuel Al-Drisshni DDS Work Phone: [facility] 01-14-2002 measles, mumps and r ubella virus vaccine Juan Manuel Al-Mashni DDS Work Phone: [facility] 01-14-2002 poliovirus vaccine, inactivated Juan Manuel Al-Mashni DDS Work Phone: [facility] 08-08-1998 diphtheria and tetan us toxoids, adsorbed for pediatric use Juan Manuel Al-Mashni DDS Work Phone: [facility] 08-08-1998 haemophilus influenz ae type b vaccine, conjugate unspecified formulation Juan Manuel Al-Mashni DDS Work Phone: [facility] 08-08-1998 hepatitis B vaccine, pediatric or pediatric/adolescent dosage Juan Manuel Al-Mashni DDS Work Phone: [facility] 08-08-1998 poliovirus vaccine, inactivated Juan Manuel Al-Mashni DDS Work Phone: [facility] 06-30-1998 measles, mumps and r ubella virus vaccine Juan Manuel Al-Mashni DDS Work Phone: [facility] 09-01-1997 diphtheria and tetan us toxoids, adsorbed for pediatric use Juan Manuel Al-Mashni DDS Work Phone: [facility] 09-01-1997 haemophilus influenz ae type b vaccine, conjugate unspecified formulation Juan Manuel Al-Mashni DDS Work Phone: [facility] 06-30-1997 diphtheria and tetan us toxoids, adsorbed for pediatric use Juan Manuel Al-Mashni DDS Work Phone: [facility] 06-30-1997 poliovirus vaccine, inactivated Juan Manuel Al-Mashni DDS Work Phone: [facility] 03-25-1997 diphtheria, tetanus toxoids and acellular pertussis vaccine, unspecified formulation Juan Manuel Al-Mashni DDS Work Phone: [facility] 03-25-1997 haemophilus influenz ae type b vaccine, conjugate unspecified formulation Juan Manuel Al-Mashni DDS Work Phone: [facility] 02-23-1997 hepatitis B vaccine, pediatric or pediatric/adolescent dosage Juan Manuel Al-Mashni DDS Work Phone: [facility] 02-23-1997 poliovirus vaccine, inactivated Juan Manuel Aleman DDS Work Phone: [facility] 1996 hepatitis B vaccine, pediatric or pediatric/adolescent dosage Juan Manuel Aleman DDS Work Phone: [facility] Payers Date Payer Category Payer Medicaid [id number] 1996 Unknown [id number] [id number] [id number] 1995 Unknown [id number] [id number] 1995 Unknown [id number] 2.16.84 [id number] 1996 Unknown [id number] 2.16. [id number] 1995 Unknown [id number] 2.16. [id number] 1995 Unknown [id number] 1995 Unknown [id number] [id number] [id number] 1995 Unknown [id number] 1958 Medicaid [id number] Self-pay Self Pay [id number] Unknown MEDICAID Unknown Self Pay [id number] Social History Date Type Detail Facility Never a smoker Never a smoker [facility] Work Phone: Start: 1995 Sex Assigned At Female [facility] Tobacco smoking status CAIS Tobacco [facility] consumption [facility] Start: 1995 Sex Assigned At Not on file [facility] Telephone encounter Note 09-23-2022 Telephone Encounter - Saima Sanchez - 09/23/2022 1:32 PM EDT Note Date & Type Note Facility 09-23-2022 Telephone encounter Note Form atting of this note might be different from the original. Reason for Escalation: Oneyda from [place] calling in. She wanted to know more information about surgery date, time, and location. It looks like PSE has not been completed just yet. She wanted to speak to the OR leaf tier directly if possible. Oneyda can be reached at [phone]. E-mail sent to Ana 09/23/22 [facility] Note 09-23-2022 Telephone Encounter - Saima Sanchez - 09/23/2022 1:32 PM EDT Note Date & Type Note Facility 09-23-2022 Miscellaneous Notes Formattin g of this note might be different from the original. Reason for Escalation: Oneyda from [place] calling in. She wanted to know more information about surgery date, time, and location. It looks like PSE has not been completed just yet. She wanted to speak to the OR leaf tier directly if possible. Oneyda can be reached at [phone]. E-mail sent to Ana 09/23/22 documented in this encounter [facility] History of Present illness Narrative 09-30-2020 Note Date & Type Note Facility 09-30-2020 History of Present illness Narrative Asha is a 25 year old female with a history of hip dysplasia, inverted duplication of chromosome 7, spasticity, global developmental delay, and congenital fusion of several vertebrae. She presents for follow up of hallux valgus and toe walking today. Her mother is concerned about her gait. She lives in [facility] and is with her caregiver today. She feels that her gait has not changed over the past year. She does not believe that Asha is in pain. Asha does not currently wear any braces or orthotics. She only uses a wheelchair for long distances. She does not take any medications for spasticity. She has had Achilles lengthening and toe surgeries in the past with Dr. Rodriges at [facility]. There has been no concern on the part of the staff at her facility that she has had any pain since we last saw her. [place] [id number] Work Phone: History of Present illness Narrative 09-25-2020 Note Date & Type Note Facility 09-25-2020 History of Present illness Narrative Asha is a 25 year old female with a history of hip dysplasia, inverted duplication of chromosome 7, spasticity, global developmental delay, and congenital fusion of several vertebrae. She presents for follow up of hallux valgus and toe walking today. Her mother is concerned about her gait. She lives in [facility] and is with her caregiver today. She feels that her gait has not changed over the past year. She does not believe that Asha is in pain. Asha does not currently wear any braces or orthotics. She only uses a wheelchair for long distances. She does not take any medications for spasticity. She has had Achilles lengthening and toe surgeries in the past with Dr. Rodriges at [facility]. There has been no concern on the part of the staff at her facility that she has had any pain since we last saw her. [place] [address] Work Phone: Evaluation note Note Date & Type Note Facility Evaluation note Diagnosis Onset Date Intact skin acute [facility] Work Phone: History of Present illness Narrative Note Date & Type Note Facility History of Present illness Narrative Asha is a 25 year old female who presents today for follow up. She was recently diagnosed with a foot fungus and hallux valgus of both feet. She is with her caregiver and he does not believe that she is in any pain. She is ambulatory and uses the wheelchair for community use. She has a history of hip dysplasia, inverted duplication of chromosome 7, spasticity, global developmental delay, and congenital fusion of several vertebrae. She has been living in [facility] for 5 years. Asha does not currently wear any braces or orthotics. She does not take any medications for spasticity. [facility] Work Phone: Summary Purpose Family History No Family History Records FoundUnknown Family Member Name Dates Details No pertinent family history: Mother(V49.89, Z78.9) Status:Active Unknown Family Member Name Dates Details No pertinent family history: Mother(V49.89, Z78.9) Status:Active Unknown Family Member Name Dates Details No pertinent family history: Mother(V49.89, Z78.9) Status:Active Unknown Family Member Name Dates Details No pertinent family history: Mother(V49.89, Z78.9) Status:Active Advance Directives No Advanced Directives Records Found Advance Directive Response Recorded Date/ Time Advance Directives No August 30 022 9:36am Chief Complaint and Reason for Visit Chief Complaint 2 @ rt foot/ pos stg 1 lower back/ [place] Reason for Visit Intact skin Additional Source Comments INFORMATION SOURCE (unrecogn ized section and content) DATE CREATED AUTHOR 11/27/2017 [facility] DATE CREATED AUTHOR AUTHOR'S ORGANIZ ATION 12/11/2017 [facility] DATE CREATED AUTHOR AUTHOR'S ORGANIZ ATION 03/27/2018 [facility] DATE CREATED AUTHOR AUTHOR'S ORGANIZ ATION 05/18/[address] [facility] DATE CREATED AUTHOR AUTHOR'S ORGANIZ ATION 09/15/2018 [facility] DATE CREATED AUTHOR AUTHOR'S ORGANIZ ATION 10/01/2021 [facility] DATE CREATED AUTHOR AUTHOR'S ORGANIZ ATION 11/24/2021 [facility] DATE CREATED AUTHOR AUTHOR'S ORGANIZ ATION 10/14/2022 [facility] Care Teams (unrecognized sec tion and content) Team Status: Inactive Member Role Status Dates Imer Crowder DO Primary Care Provider Active Laura Fortune APRN Attending Provider Active Team Status: Active Member Role Status Dates Imer Crowder DO Primary Care Provider Active Goals (unrecognized section and content) Goals may be documented in a n alternate section Reason for Visit (unrecogniz ed section and content) Reason Onset Date Comments Dental 09/23/2022 FOR RECORDS PERTAINING TO PATIENTS WHO ARE OR HAVE BEEN ENROLLED IN A CHEMICAL DEPENDENCY/SUBSTANCEABUSE PROGRAM, SOME INFORMATION MAY BE OMITTED. This clinical summary was aggregated from multiple sources. Caution should be exercised in using it in the provision of clinical care. This summary normalizes information from multiple sources, and as a consequence, information in this document may materially change the coding, format and clinical context of patient data. In addition, data may be omitted in some cases. CLINICAL DECISIONS SHOULD BE BASED ON THE PRIMARY CLINICAL RECORDS. [facility]. provides no warranty or guarantee of the accuracy or completeness of information in this document.
--- NOTE | 2023-07-03 10:33 | XR_ITS ---
The [address] [address] Patient Name: SANCHEZ SMITH MRN: [facility]:[id number] date: 1995 Sex: F Assigned Patient Location: ED.MAIN Current Patient Location: ER Accession/Order Number: [id number] Exam Date: 07/03/2023 11:40 Report Date: 07/03/2023 12:09 At the request of: HAO BRODY Procedure: XR tibia fibula RANGEL 2V STUDY: XR tibia fibula RANGEL 2V, XR foot RANGEL 2V, [id number], [id number] HISTORY: bilateral lower leg pain COMPARISON: None FINDINGS: Right tibia, fibula, and foot: No acute fracture, dislocation, or suspicious osseous lesion. No significant degenerative changes. Visualized soft tissues are within normal limits. No abnormal periosteal reaction to suggest stress fracture. Left tibia, fibula, and foot: No acute fracture, dislocation, or suspicious osseous lesion. No significant degenerative changes. Visualized soft tissues are within normal limits. Severe hallux valgus and metatarsus primus varus. No abnormal periosteal reaction to suggest stress fracture. IMPRESSION: Negative exam. No acute osseous abnormality in either leg or foot to account for pain. Electronically authenticated by: ANN-MARIE SALMERON Date: 07/03/2023 12:09
--- NOTE | 2023-07-03 10:33 | XR_ITS ---
The [address] [address] Patient Name: SANCHEZ SMITH MRN: [id number] date: 1995 Sex: F Assigned Patient Location: ER Current Patient Location: ER Accession/Order Number: [id number] Exam Date: 07/03/2023 11:40 Report Date: 07/03/2023 12:09 At the request of: HAO BRODY Procedure: XR foot RANGEL 2V STUDY: XR tibia fibula RANGEL 2V, XR foot RANGEL 2V, [id number], [id number] HISTORY: bilateral lower leg pain COMPARISON: None FINDINGS: Right tibia, fibula, and foot: No acute fracture, dislocation, or suspicious osseous lesion. No significant degenerative changes. Visualized soft tissues are within normal limits. No abnormal periosteal reaction to suggest stress fracture. Left tibia, fibula, and foot: No acute fracture, dislocation, or suspicious osseous lesion. No significant degenerative changes. Visualized soft tissues are within normal limits. Severe hallux valgus and metatarsus primus varus. No abnormal periosteal reaction to suggest stress fracture. IMPRESSION: Negative exam. No acute osseous abnormality in either leg or foot to account for pain. Electronically authenticated by: ANN-MARIE SALMERON Date: 07/03/2023 12:09
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
[2023-07-03] MEDS: ONDANSETRON PF 4 MG/2 ML VIAL IV (10:56)
[2023-07-03] MEDS: LORAZEPAM 2 MG/ML 1 ML VIAL IV (10:57)
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
--- NOTE | 2023-07-03 11:42 | XR_ITS ---
[address] [address] Patient Name: SANCHEZ SMITH MRN: [id number] date: 1995 Sex: F Assigned Patient Location: ER Current Patient Location: ER Accession/Order Number: [id number] Exam Date: 07/03/2023 11:40 Report Date: 07/03/2023 12:18 At the request of: HAO BRODY Procedure: XR pelvis 1-2V PROCEDURE: XR pelvis 1-2V COMPARISON: None. HISTORY: bilateral pelvic pain FINDINGS: BONES:Mild to moderate right and severe left developmental hip dysplasia with severe degenerative changes of the left hip. SOFT TISSUES:Negative. No visible soft tissue swelling. EFFUSION:None visible. OTHER: Moderate stool in the rectum. XR/XR pelvis 1-2V IMPRESSION: Bilateral hip dysplasia, mild to moderate in the right, severe in the left Electronically authenticated by: GRETA MONACO Date: 07/03/2023 12:18
--- NOTE | 2023-07-03 11:57 | PC.NURSE ---
Radiology was in room with patient. did very well with very few outbursts. We then took her to radiology to do X-ray. patient did very well with very few outbursts.
[2023-07-03 13:00] LABS: HCG Qualitative NEGATIVE (NEGATIVE)
== END 2023-07-03 14:13 | disposition home or self-care (01) ==
PROVIDERS: Emergency Provider Emergency Medicine; PCP Family Medicine
DX: Q74.2 Other congenital malformations of lower limb(s), including pelvic girdle (principal); F79 Unspecified intellectual disabilities
CPT/HCPCS: 36415; 72170; 73590; 73620; 84703; 96374; 96375; 99284; J2060; J2405

== ENCOUNTER 2023-07-17 07:31 | Outpatient (OUT) | payer MEDICAID, SELFPAY ==
--- OUTSIDE RECORDS SUMMARY | 2023-07-15 15:22 | XMS_ITS | CCD ---
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 Name Role Phone NAZEMI, JOSHUA I Unavailable Unavailable NAZEMI, JOSHUA I Unavailable Unavailable CROWDER, IMER Unavailable Unavailable NAZEMI, JOSHUA I Unavailable Unavailable NAZEMI, JOSHUA I Unavailable Unavailable CROWDER, IMER Unavailable Unavailable NAZEMI, JOSHUA I Unavailable Unavailable CROWDER, IMER Unavailable Unavailable CROWDER, IMER Unavailable Unavailable GRETA RODRIGES Unavailable Unavailable CROWDER, IMER~[id number] UNKNOWN Unavailable Unavailable CROWDER, IMER~[id number] UNKNOWN Unavailable Unavailable CROWDER, IMER~[id number] UNKNOWN Unavailable Unavailable CROWDER, IMER~[id number] UNKNOWN Unavailable Unavailable CROWDER, IMER~[id number] UNKNOWN Unavailable Unavailable CROWDER, IMER~[id number] UNKNOWN Unavailable Unavailable EdwinSavanah Attending Unavaila ble Crowder, Imer Reese Referring Unavailab le Crowder, Imer Reese Primary Care Unavailab le EdwinSavanah Attending Unavaila ble CrowderImer Referring Unavailab le Crowder, Imer Reese Primary Care Unavailab le EdwinSavanah Attending Unavaila ble Crowder, Imer Reese Referring Unavailab le Crowder, Imer Reese Primary Care Unavailab le CrowderImer Unavailable CrowderDO Imer Primary Care Provider [phone] DAYRON Fortune Attending Provider CROWDER, DR IMER Zuniga Attending Unavailable CROWDER, DR IMER Zuniga Admitting Unavailable CROWDER, DR IMER Zuniga Consulting Unavailable CROWDER, DR IMER A Attending Unavailable DR IMER CROWDER Admitting Unavailable Unavailable Primary Care Provider Unavailabl [...] Interpretation Reference Range Facility Progress Noteson 10-11-2022 [employer] Authentication Interface Message Text Received call on 10/10 from Anju @ [facility] - requesting to reschedule the PSE appointment for today -- Offered another appointment on 10/14 and 10/15 -- nAju declined -- I explained to her that the surgery on 11/01 would be canceled. ----- Tuesday, October 11, 2022 at 9:35:03 AM ----- ----- Provider: Donna Clay Specialist -- Clinic: [facility] ----- Normal [facility] Telephone Encounteron 2022 [employer] Authentication Interface Message Text Reason for Escalation: Oneyda from [facility] calling in. She wanted to know more information about surgery date, time, and location. It looks like PSE has not been completed just yet. She wanted to speak to the OR radiology scheduler directly if possible. Oneyda can be reached at [phone]. E-mail sent to Ana 09/23/22 Normal [facility] Progress Noteson 09-03-2022 [employer] Authentication Interface Message Text [facility] ([facility]) was contacted for PSE AND OR scheduled -- confirmed information with guardian, also was informed importance of receiving PSE call -- if not received surgery will be canceled----- Saturday, September 03, 2022 at 11:11:13 AM ----- ----- Provider: Donna Clay Specialist -- Clinic: [facility] ----- Normal [facility] (CLEAN/CATCH) COLLECTOR/MICRO I F IND.on 11-22-2021 Bilirubin Ql (U) Negative Normal NEGATIVE [facility] Comment on above: Performed By: #### U ACSIND, UMICRO #### [facility] [address] [address] [address] Noble Faulkner Clarity (U) CLEAR Normal CLEAR [facility] Comment on above: Performed By: #### U ACSIND, UMICRO #### [facility] [address] [address] [address] Noble Faulkner Color (U) LT. YELLOW Normal YELLOW [facility] Comment on above: Performed By: #### U ACSIND, UMICRO #### [facility] [address] [address] [address] Noble Faulkner Glucose Ql (U) Negative Normal NEGATIVE [facility] Comment on above: Performed By: #### U ACSIND, UMICRO #### [facility] [address] [address] [address] Noble Faulkner Hemoglobin Ql (U) Negative Normal NEGATIVE [facility] Comment on above: Performed By: #### U ACSIND, UMICRO #### [facility] [address] [address] [address] Noble Faulkner Ketones Ql (U) Negative Normal NEGATIVE [facility] Comment on above: Performed By: #### U ACSIND, UMICRO #### [facility] [address] [address] [address] Noble Faulkner LEUKOCYTES TRACE Abnormal NEGATIVE [facility] Comment on above: Performed By: #### U ACSIND, UMICRO #### [facility] [address] [address] [address] Noble Faulkner Nitrite Ql (U) Negative Normal NEGATIVE [facility] Comment on above: Performed By: #### U ACSIND, UMICRO #### [facility] [address] [address] [address] Noble Faulkner pH (U) 7.5 [pH] Normal 5-9 [facility] Comment on above: Performed By: #### U ACSNOMAN UMICRO #### [facility] [address] [place] [address] Dr. Noble Faulkner SPEC GRAVITY 1.015 Normal 1.005-<=1.02 5 [facility] Comment on above: Performed By: #### U ACSNOMAN UMICRO #### [facility] [address] [place] [address] Dr. Noble Faulkner UA PROTEIN Negative Normal NEGATIVE/ TRACE [facility] Comment on above: Performed By: #### U ACSNOMAN UMICRO #### [facility] [address] [place] [address] Dr. Noble Faulkner UR MICRO IND INDICATED Normal [facility] Comment on above: Performed By: #### U ACSNOMAN UMICRO #### [facility] [address] [place] [address] Dr. Noble Faulkner Urobilinogen Qn (U) 0.2 {Don'U}/dL Normal 0.2 - 1. 0 [facility] Comment on above: Performed By: #### U ACSNOMAN UMICRO #### [facility] [address] [place] [address] Dr. Noble Faulkner URINE MICROSCOPIC ONLYon AMORPHOUS CRYSTALS FEW Normal The [facility] Comment on above: Performed By: #### U ACSNOMAN UMICRO #### [facility] [address] [place] [address] Dr. Noble Faulkner BACTERIA TRACE Abnormal NONE SEEN [facility] Comment on above: Performed By: #### U ACSNOMAN UMICRO #### [facility] [address] [place] [address] Dr. Noble Faulkner Bacteria identified Cx Nom (U) NOT INDICATED Normal [facility] Comment on above: Performed By: #### U ACSNOMAN UMICRO #### [facility] [address] [place] [address] Dr. Noble Faulkner CAST NONE SEEN Normal NONE SEEN The [facility] Comment on above: Performed By: #### U ACSIND, UMICRO #### [facility] [address] [address] [address] Noble Faulkner Crystals LM Nom (Urine sed) SEEN Abnormal NONE SEEN The [facility] Comment on above: Performed By: #### U ACSIND, UMICRO #### [facility] [address] [address] [address] Noble Faulkner Epithelial cells LM Ql (Urine sed) FEW Abnormal NONE SEEN /RARE [facility] Comment on above: Performed By: #### U ACSIND, UMICRO #### [facility] [address] [address] [address] Noble Faulkner MUCOUS NONE SEEN Normal NONE SEEN The [facility] Comment on above: Performed By: #### U ACSIND, UMICRO #### [facility] [address] [address] [address] Noble Faulkner RBC NONE SEEN Abnormal 0-2 The [facility] Comment on above: Performed By: #### U ACSIND, UMICRO #### [facility] [address] [address] [address] Noble Faulkner WBC 0-2 Abnormal NONE SEEN The [facility] Comment on above: Performed By: #### U ACSIND, UMICRO #### [facility] [address] [address] [address] Noble Faulkner Established Visit (Orthopaed ic [...] about her gait. She lives in [facility] and is with her caregiver today. She [...] in the past with Dr. Rodriges at [facility]. There has been no concern on the [...] Sep 30 2021 12:40PM EST (Author) Normal [facility] Established Visit (Orthopaed ic Surgery)on 02-20-2021 Established [...] vertebrae. She has been living in [facility] for 5 years. Asha does not currently [...] Feb 20 2021 3:07PM EST (Author) Normal [facility] Progress Noteon 02-27-2018 HIM IP Note OR [employer] Normal [facility] Progress Noteon 01-23-2018 HIM IP Note OR [employer] Normal [facility] Progress Noteon 12-26-2017 HIM IP Note OR [employer] Normal [facility] Progress Noteon 12-05-2017 HIM IP Note OR [employer] Normal [facility] Progress Noteon 11-21-2017 HIM IP Note OR [employer] Normal [facility] Progress Noteon 11-09-2017 HIM IP Note OR [employer] Normal [facility] Progress Noteon 10-16-2017 HIM IP Note OR [employer] Normal [facility] Progress Noteon 10-10-2017 HIM IP Note OR [employer] Normal [facility] Progress Noteon 09-27-2017 HIM IP Note OR [employer] Normal [facility] Progress Noteon 09-17-2017 HIM IP Note OR [employer] Normal [facility] Homocysteineon 09-13-2017 Homocysteine 8.5 umol/L Normal <15.0 [facility] Comment on above: Result Comment: Perf ormed at [facility] [place], [place] [id number] ([phone] Performed By: #### C BC, HOCYS ####[facility] [place] [address] #### CP ####[address] [place] [address] CBCon 09-12-2017 Erythrocyte distribution width Auto Ratio (RBC) 11.9 % Normal 11.8-14.4 [facility] Comment on above: Performed By: #### C MARYA, HOCYS ####[address] [address] #### CP ####[address] [place] [address] Erythrocytes (RBC) 4.79 10*6/uL Normal 3.95-5.11 [facility] Comment on above: Performed By: #### C MARYA, HOCYS ####[address] [address] #### CP ####[address] [place] [id number] Erythrocytes (RBC) 0.0 per 100 WBC Normal 0.0 [facility] Comment on above: Result Comment: Perf ormed at [address] [address] Performed By: #### C MARYA, HOCYS ####[address] [address] #### CP ####[address] [place] [address] Hematocrit (HCT) 42.9 % Normal 36.3-47.1 [facility] Comment on above: Performed By: #### C MARYA, HOCYS ####[address] [address] #### CP ####[address] [place] [address] Hemoglobin mass conc (Bld) 14.9 g/dL Normal 11.9-15.1 [facility] Comment on above: Performed By: #### C MARYA, HOCYS ####[address] [address] #### CP ####[address] [place] [address] MCH 31.1 pg Normal 25.2-33.5 [facility] Comment on above: Performed By: #### C MARYA, HOCYS ####[address] [address] #### CP ####[address] [place] [address] MCHC mass conc (RBC) 34.7 g/dL Normal 28.4-34.8 [facility] Comment on above: Performed By: #### C MARYA, HOCYS ####[address] [address] #### CP ####[address] [place] [address] MCV 89.6 fL Normal 82.6-102.9 [facility] Comment on above: Performed By: #### C MARYA, HOCYS ####[address] [address] #### CP ####[address] [place] [address] Platelet mean volume (PMV) 10.9 fL Normal 8.1-13.5 [facility] Comment on above: Performed By: #### C MARYA, HOCYS ####[address] [address] #### CP ####[address] [place] [address] Platelets 170 10*3/uL Normal 138-453 [facility] Comment on above: Performed By: #### C BC, HOCYS ####[address] [place] [address] #### CP ####[address] [place] [address] WBC (Leukocytes) 8.7 10*3/uL Normal 4.5-13.5 [facility] Comment on above: Performed By: #### C MARYA, HOCYS ####[address] [address] #### CP ####[address] [place] [address] Comp Metabolic Profon 2017 (cont.) Normal [facility] Comment on above: Result Comment: Aver age GFR for 20-29 years old: 116 mL/min/1.73sq mChronic Kidney Disease: <60 mL/min/1.73sq mKidney failure: <15 mL/min/1.73sq meGFR calculated using average adult body mass. Additional eGFR calculator available at:http://www.[employer].Barnacle/multiple_crcl_2012.htm Performed By: #### Alexys MALHOTRA, HOCYS ####[address] [address] #### CP ####[address] [place] [address] Alanine aminotransferase (ALT) 18 U/L Normal 5-33 [facility] Comment on above: Performed By: #### C MARYA, HOCYS ####[address] [address] #### CP ####[address] [place] [address] Albumin 4.2 g/dL Normal 3.5-5.2 [facility] Comment on above: Performed By: #### Alexys MALHOTRA, HOCYS ####[address] [address] #### CP ####[address] [place] [address] Albumin/Globulin Ratio 1.3 {ratio} Normal 1.0-2.5 [facility] Comment on above: Performed By: #### C BC, HOCYS ####[address] [address] #### CP ####[address] [place] [address] Alkaline Phos 112 U/L High 35-104 [facility] Comment on above: Performed By: #### C BC, HOCYS ####[address] [address] #### CP ####[address] [place] [address] Anion gap 12 mmol/L Normal 9-17 [facility] Comment on above: Performed By: #### C BC, HOCYS ####[address] [address] #### CP ####[address] [place] [address] Aspartate aminotransferase (AST) 25 U/L Normal <32 [facility] Comment on above: Performed By: #### C BC, HOCYS ####[address] [address] #### CP ####[address] [place] [address] Bilirubin Ql (U) 0.60 mg/dL Normal 0.3-1.2 [facility] Comment on above: Performed By: #### C BC, HOCYS ####[address] [address] #### CP ####[address] [place] [address] BUN/CRE Ratio 25 High 9-20 [facility] Comment on above: Performed By: #### C BC, HOCYS ####[address] [address] #### CP ####[address] [place] [address] Calcium 9.5 mg/dL Normal 8.6-10.4 [facility] Comment on above: Performed By: #### C BC, HOCYS ####[address] [address] #### CP ####[address] [place] [address] Chloride 103 mmol/L Normal 98-107 [facility] Comment on above: Performed By: #### C MARYA, HOCYS ####[address] [address] #### CP ####[address] [place] [address] CO2 24 mmol/L Normal 20-31 [facility] Comment on above: Performed By: #### C MARYA, HOCYS ####[address] [address] #### CP ####[address] [place] [address] Creatinine 0.69 mg/dL Normal 0.50-0.90 [facility] Comment on above: Performed By: #### C BC, HOCYS ####[address] [address] #### CP ####[address] [place] [address] eGFR (non-black) mL/min/{1.73_m2} Normal >60 [facility] Comment on above: Performed By: #### C BC, HOCYS ####[address] [address] #### CP ####[address] [place] [address] Glucose mass conc 97 mg/dL Normal 70-99 [facility] Comment on above: Performed By: #### C BC, HOCYS ####[address] [address] #### CP ####[address] [place] [address] Potassium molar conc 4.0 mmol/L Normal 3.7-5.3 [facility] Comment on above: Performed By: #### C BC, HOCYS ####[address] [address] #### CP ####[address] [place] [address] Protein 7.5 g/dL Normal 6.4-8.3 [facility] Comment on above: Performed By: #### C BC, HOCYS ####[address] [address] #### CP ####[address] [place] [address] Sodium 139 mmol/L Normal 135-144 [facility] Comment on above: Performed By: #### C BC, HOCYS ####[address] [address] #### CP ####[address] [place] [address] Staging: Normal [facility] Comment on above: Result Comment: Stag e 1: Some kidney damage normal GFRStage 2: Mild kidney damage GFR 60-89Stage 3: Moderate kidney damage GFR 30-59Stage 4: Severe kidney damage GFR 15-29Stage 5: Severe kidney damage GFR <15ESRD - chronic treatment by dialysis or transplantPerformed at [address] [place], [place] [id number] [phone] Performed By: #### C BC, HOCYS ####[facility] [place] [address] #### CP ####[address] , [place] [address] Urea nitrogen 17 mg/dL Normal 6-20 [facility] Comment on above: Performed By: #### C BC, HOCYS ####[facility] [place] [address] #### CP ####[address] , [place] [id number] History and Physicalon 09-12 HIM IP Note OR [employer] Normal [facility] Op Noteon 09-12-2017 HIM IP Note OR [employer] Normal [facility] Progress Noteon 09-12-2017 HIM IP Note OR [employer] Normal [facility] HIM IP Note OR [employer] Normal [facility] Progress Noteon 09-05-2017 HIM IP Note OR [employer] Normal [facility] HCG Screen, Bloodon 09-05-19 18 HCG Qn Negative Normal NEG [facility] Comment on above: Result Comment: Spec imens with hCG levels near the threshold of the test (25 mIU/mL) may give a negative or indeterminate result. In such cases, another test should be performed with a new specimen in 48-72 hours. If early is suspected clinically in this setting, correlation with quantitative serum b-hCG level is suggested.[facility] has confirmed the use of plasma for this test. This has not been cleared or approved by the U.S. Food and Drug Administration. The FDA has determined that such clearance is not necessary.Performed at [address] [place] [address] Performed By: #### H CG ####[address] [place] [address] Op Noteon 09-04-2017 HIM IP Note OR [employer] Normal [facility] Progress Noteon 09-04-2017 HIM IP Note OR [employer] Normal [facility] HIM IP Note OR [employer] Normal [facility] HIM IP Note OR [employer] Normal [facility] HIM IP Note OR [employer] Normal [facility] HIM IP Note OR [employer] Normal [facility] Surgical Pathologyon 018 Surgical Pathology (NOTE)[id number] Y LABORATORIESCONSULTING PATHOLOGISTS CORPORATIONANATOMIC [id number] [place] [address]. [place], [place] [address] Fax: SURGICAL PATHOLOGY CONSULTATIONPatient Name: [facility] Rec[facility] [id number] Number: [id number]: 09/04/2017Received: 09/05/2017Reported: 09/09/2017 11:14-- Diagnosis --SKIN AND SOFT TISSUE, BACK, EXCISIONS: - MULTIPLE PORTIONS OF INFLAMED KELOIDS.Home Avila M.D.Electronically Signed Out09/05/2017Cash davies InformationPre-op Diagnosis: PAINFUL CYSTS ON BACK [...] fascicles contain cells with foamy cytoplasm. An [id number] was performed and appears negative in these foci,excluding a granular cell tumor. Controls stain appropriately. Normal [facility] History and Physicalon 09-01 HIM IP Note OR [employer] Normal [facility] CNOVon 08-26-2017 CNOV Office Visit (ORTPMN) LUISJOB ([id number]) 1995 FDate Time Provider Department08/26/17 10:45 AM GRETA RODRIGES ORTPMN During your visit today, we recorded the following information about you:Greta Rodriges MD 08/26/2017 11:14 AM SignedI have reviewed the history and physical obtained and documented by theresident and I personally participated in the coelho components. I agree with thefindings and plan of care, with the additions contained within my dictation.Greta Rodriges M.D.Timoteo Head, 08/26/2017 11:23 AM SignedPEDIATRIC ORTHOPEDIC CONSULTHPI:Radha Smith [...] look at. Since her activity is stable andshe isn't having pain wouldn't recommend any change [...] Status:Closed by GRETA RODRIGES MD on 08/26/17 Normal [facility] PROGRESSon 08-26-2017 PROGRESS HNO ID: [id number] thor: Timoteo HeadSer: (none)Author Type: ResidentType: Progress NotesFiled: 08/26/2017 11:23 [...] with emphasis on stretching.Timoteo Head, DO Normal [facility] PROGRESS HNO ID: [id number] thor: rGeta Giordano: (none)Author Type: PhysicianType: Progress NotesFiled: 08/26/2017 11:14 AMNote Text:I have reviewed the history and physical obtained and documented by theresident and I personally participated in the coelho components. I agree withthe findings and plan of care, with the additions contained within mydictation.Greta Rodriges M.D. Normal [facility] Progress Noteon 08-20-2017 HIM IP Note OR [employer] Normal [facility] HIM IP Note OR [employer] Normal [facility] Progress Noteon 08-09-2017 HIM IP Note OR [employer] Normal [facility] OT-XR HIPS RANGEL 5V W PELVIS I MPORTon 07-09-2017 OT-XR HIPS RANGEL 5V W PELVIS IMPORT Images were obtained outside of [facility] [id number] Normal [facility] OT-XR L-SPINE MIN 4 VIEWS IM PORTon 07-09-2017 OT-XR L-SPINE MIN 4 VIEWS IMPORT Images were obtained outside of [facility] [id number] Normal [facility] Vital Signs Date Time Vital Sign Value Performing Clinician Satnam saravia 09-04-2021 15:32-0400 Body height 147.32 cm DO Imer Crowder Work Phone: [facility] 09-04-2021 15:32-0400 Body mass index (BMI) [Ratio] 30.2 kg/m2 DO Imer Crowder Work Phone: [facility] 09-04-2021 15:32-0400 Body weight 65.48 kg DO Imer Crowder Work Phone: [facility] 09-04-2021 15:12-0400 Body temperature 98.4 [degF] DO Imer Crowder Work Phone: [facility] 09-04-2021 15:12-0400 Respiratory rate 24 /min DO Imer Crowder Work Phone: [facility] Encounters Encounter Date Encounter Type Care Provider Facility Start: 09-23-2022 Telephone encounter Juan Manuel mills DDS Work Phone: [facility] Comment on above: Dental Start: 11-22-2021 End: 11-22-[address] IMER CROWDER Facility:[facility] Start: 09-24-2021 Office outpatient vi sit 15 minutes Imer Crowder Work Phone: [facility] Work Phone: Start: 09-24-2021 Patient encounter procedure Imer Crowder Work Phone: [facility] Work Phone: Start: 09-05-[address] IMER CROWDER Fac ility:[facility] Start: 09-04-2021 End: 09-04-2021 Discharged Recurring DO Imer Crowder Work Phone: [facility] Start: 02-20-2021 Office outpatient vi sit 15 minutes Imer Crowder Work Phone: [facility] Work Phone: Start: 02-07-2021 AUDIT Imer Feliz Work Phone: [facility] Work Phone: Start: 09-14-2018 Patient encounter procedure Savanah Pineda Facility:9568 Start: 08-18-2018 Patient encounter procedure Savanah Pineda Facility:9568 Start: 04-28-2018 End: 04-29-2018 Patient encounter procedure IMER~[id number] UNKNOWN CROWDER Facility:[facility] Start: 02-17-2018 Patient encounter procedure Savanah Pineda Facility:[id number] Start: 10-07-2017 End: 10-08-2017 Patient encounter procedure [id number] UNKNOWN CROWDER Facility:[facility] Start: 09-12-2017 End: 09-13-2017 Ambulatory JOSHUA I [facility]ZEMI [facility] Start: 09-04-2017 End: 09-04-2017 Ambulatory JOSHUA I NAZEMI [facility] Start: 08-26-2017 End: 08-27-2017 Ambulatory GRETA RODRIGES [facility] Start: 08-05-2017 End: 08-06-2017 Patient encounter procedure [id number] UNKNOWN CROWDER Facility:[facility] Procedures Date Procedure Procedure Detail Performing Clinician Start: 09-12-2017 DISCHARGE PATIENT STEPHON ZEMI Start: 09-12-2017 CBC BETTIZEMI Start: 09-12-2017 COMPREHENSIVE METABO LIC PANEL BETTIZEMI Start: 09-12-2017 HOMOCYSTEINE, SERUM BET TIZEMI Start: 09-04-2017 DISCHARGE PATIENT STEPHON ZEMI Start: 09-04-2017 SURGICAL PATHOLOGY BETT IZEMI Start: 09-04-2017 HCG, SERUM, QUALITATIVE BETTIZEMI Start: 09-04-2017 HCG, QUANTITATIVE, BETTIZEMI Start: 09-04-2017 INSERT PERIPHERAL IV BE TTIZEMI Start: 03-29-2018 , URINE BETTIZ LOURDES Hip Surgery Imer wilcox Work Phone: Subcutaneous Tenotom y Achilles Tendon Under Gen Anesthesia Imer Crowder Work Phone: Plan of Treatment Date Care Activity Detail Author Start: 2046 Shingles (RZV) Vacci ne (1 of 2) Shingles (RZV) Vaccine (1 of 2) [facility] Start: 11-01-2022 End: 11-01-2022 Admission to same day surgery center 11/01/2022 Surgery Ambulatory Surgery Lizbeth Romerorebeca Yordy, DDS [address] [place], [place] [id number] DENTAL RESTORATIONS [facility] Ambulatory Surgery Comment on above: DENTAL RESTORATIONS Start: 11-01-2022 End: 11-01-2022 DENTAL RESTORATIONS DENTAL RESTORATIONS Routine scheduled Caries 11/01/2022 11:28 AM EDT [facility] Start: 11-01-2022 Subsequent hospital visit by physician 11/01/2022 Hospital Encounter Ambulatory Surgery Lizbeth RomeroYordy jose, DDS [address] [place] [address] [facility] Ambulatory Surgery Start: 10-11-2022 End: 10-11-2022 Patient encounter procedure 10/11/2022 Office Visit Pediatric Comp Care Ayad Heck MD [address] [place] [address] [facility] Start: 02-20-2021 FUV, Provider: Savanah Pineda, Status: Pen, Time: 1:45 PM FUV, Provider: Savanah Pineda, Status: Pen, Time: 1:45 PM [id number] Work Phone: Start: 2017 Screening for malign ant neoplasm of cervix Pap Smear [facility] Start: 2014 Hepatitis C screening Hepatitis C An tibody [facility] Start: 2014 Tetanus + diphtheria + acellular pertussis vaccine (product) Tdap Booster [facility] Start: 12-25-2011 HIV screening HIV Test [facility] Start: 12-25-2007 Vaccination for cabrera n papillomavirus Human Papilloma (HPV) Vaccine (1 - 2-dose series) [facility] Start: 06-26-1997 COVID-19 Vaccine (#1) COVID-19 Vacci ne (#1) [facility] Immunizations Immunization Date Immunization Notes Care Provider Fa cili 04-04-2021 influenza, injectabl e, quadrivalent, preservative [facility] [employer] Work Phone: [facility] 03-15-2014 TD(adult) unspecifie d formulation [facility] [employer] Work Phone: [facility] 09-21-2010 hepatitis A vaccine, pediatric/adolescent dosage, 2 dose schedule [facility] [employer] Work Phone: [facility] 09-25-2009 hepatitis A vaccine, pediatric/adolescent dosage, 2 dose schedule [facility] [employer] Work Phone: [facility] 09-25-2009 meningococcal polysa ccharide vaccine (MPSV4) [facility] [employer] Work Phone: [facility] 04-22-2002 diphtheria and tetan us toxoids, adsorbed for pediatric use [facility] [employer] Work Phone: [facility] 04-22-2002 measles, mumps and r ubella virus vaccine [facility] Work Phone: [facility] 04-22-2002 poliovirus vaccine, inactivated [facility] [employer] Work Phone: [facility] 04-22-2002 varicella virus vaccine Lait h [facility] Work Phone: [facility] 01-14-2002 diphtheria and tetan us toxoids, adsorbed for pediatric use [facility] Work Phone: [facility] 01-14-2002 measles, mumps and r ubella virus vaccine Juan Manuel Al-Drisshni DDS Work Phone: [facility] 01-14-2002 poliovirus vaccine, inactivated Juan Manuel Al-Mashni DDS Work Phone: [facility] 08-08-1998 diphtheria and tetan us toxoids, adsorbed for pediatric use Juan Manuel Al-Drisshni DDS Work Phone: [facility] 08-08-1998 haemophilus influenz ae type b vaccine, conjugate unspecified formulation Juan Manuel Al-Drisshni DDS Work Phone: [facility] 08-08-1998 hepatitis B vaccine, pediatric or pediatric/adolescent dosage Juan Manuel Al-Drisshni DDS Work Phone: [facility] 08-08-1998 poliovirus vaccine, inactivated Juan Manuel Al-Drisshni DDS Work Phone: [facility] 06-30-1998 measles, mumps and r ubella virus vaccine Juan Manuel Al-Drisshni DDS Work Phone: [facility] 09-01-1997 diphtheria and tetan us toxoids, adsorbed for pediatric use Juan Manuel Al-Drisshni DDS Work Phone: [facility] 09-01-1997 haemophilus influenz ae type b vaccine, conjugate unspecified formulation Juan Manuel Al-Drisshni DDS Work Phone: [facility] 06-30-1997 diphtheria and tetan us toxoids, adsorbed for pediatric use Juan Manuel Al-Drisshni DDS Work Phone: [facility] 06-30-1997 poliovirus vaccine, inactivated Juan Manuel Al-Mashni DDS Work Phone: [facility] 03-25-1997 diphtheria, tetanus toxoids and acellular pertussis vaccine, unspecified formulation Juan Manuel Al-Drisshni DDS Work Phone: [facility] 03-25-1997 haemophilus influenz ae type b vaccine, conjugate unspecified formulation Juan Manuel Al-Drisshni DDS Work Phone: [facility] 02-23-1997 hepatitis B vaccine, pediatric or pediatric/adolescent dosage Juan Manuel Aleman DDS Work Phone: [facility] 02-23-1997 poliovirus vaccine, inactivated Juan Manuel Aleman DDS Work Phone: [facility] 1996 hepatitis B vaccine, pediatric or pediatric/adolescent dosage Juan Manuel Aleman DDS Work Phone: [facility] Payers Date Payer Category Payer Medicaid [id number] 1996 Unknown [id number] 2.16.84 [id number] 1996 Unknown [id number] 2.16.84 [id number] 1996 Unknown [id number] 2.16.84 [id number] 1996 Unknown [id number] 2.16. [id number] 1996 Unknown [id number] 2.16. [id number] 1996 Unknown [id number] 2.16. [id number] 1996 Unknown [id number] 2.16.84 [id number] 1996 Unknown [id number] 2.16.84 [id number] 1958 Medicaid [id number] Self-pay Self Pay [id number] Unknown MEDICAID Unknown Self Pay [id number] Social History Date Type Detail Facility Never a smoker Never a smoker [facility] Work Phone: Start: 1995 Sex Assigned At Female F [facility] Tobacco smoking status NHIS Tobacco smoking consumption unknown [facility] Start: 1996 Sex Assigned At Not on file [facility] Telephone encounter Note 09-23-2022 Telephone Encounter - Saima Sanchez - 09/23/2022 1:32 PM EDT Note Date & Type Note Facility 09-23-2022 Telephone encounter Note Form atting of this note might be different from the original. Reason for Escalation: Oneyda from [facility] calling in. She wanted to know more information about surgery date, time, and location. It looks like PSE has not been completed just yet. She wanted to speak to the OR radiology scheduler directly if possible. Oneyda can be reached at [phone]. E-mail sent to Ana 09/23/22 [facility] 09-23-2022 Telephone Encounter - Saima Sancehz - 09/23/2022 1:32 PM EDT Note Date & Type Note Facility 09-23-2022 Miscellaneous Notes Formattin g of this note might be different from the original. Reason for Escalation: Oneyda from [facility] calling in. She wanted to know more information about surgery date, time, and location. It looks like PSE has not been completed just yet. She wanted to speak to the OR radiology scheduler directly if possible. Oneyda can be reached at [phone]. E-mail sent to Ana 09/23/22 documented in this encounter [facility] History of Present illness Narrative 09-30-2020 Note [...] about her gait. She lives in [facility] and is with her caregiver today. She [...] in the past with Dr. Rodriges at [facility]. There has been no concern on the part of the staff at her facility that she has had any pain since we last saw her. [facility] Work Phone: History of Present illness Narrative [...] about her gait. She lives in [facility] and is with her caregiver today. She [...] in the past with Dr. Rodriges at [facility]. There has been no concern on the part of the staff at her facility that she has had any pain since we last saw her. [facility] Work Phone: Evaluation note Note Date & Type Note Facility Evaluation note Diagnosis Onset Date Intact skin acute [facility] Work Phone: History of Present illness Narrative [...] vertebrae. She has been living in [facility] for 5 years. Asha does not currently wear any braces or orthotics. She does not take any medications for spasticity. [facility] Work Phone: Summary Purpose Family History No [...] Recorded Date/ Time Advance Directives No August 30, 2 022 9:36am Chief Complaint and Reason for Visit Chief Complaint 2 @ rt foot/ pos stg 1 lower back/ [place] Reason for Visit Intact skin Additional Source Comments INFORMATION SOURCE (unrecogn ized section and content) DATE CREATED AUTHOR 11/27/2017 [facility] DATE CREATED AUTHOR AUTHOR'S ORGANIZ ATION 12/11/2017 [facility] DATE CREATED AUTHOR AUTHOR'S ORGANIZ ATION 03/27/[address] [facility] DATE CREATED AUTHOR AUTHOR'S ORGANIZ ATION 05/18/2018 [facility] DATE CREATED AUTHOR AUTHOR'S ORGANIZ ATION 09/15/2018 [facility] DATE CREATED AUTHOR AUTHOR'S ORGANIZ ATION 10/01/2021 [facility] DATE CREATED AUTHOR AUTHOR'S ORGANIZ ATION 11/24/2021 [facility] DATE CREATED AUTHOR AUTHOR'S ORGANIZ ATION 10/14/2022 [facility] Care Teams (unrecognized sec tion and [...] BE BASED ON THE PRIMARY CLINICAL RECORDS. [facility] provides no warranty or guarantee of the accuracy or completeness of information in this document.
--- OUTSIDE RECORDS SUMMARY | 2023-07-17 07:33 | XMS_ITS | CCD ---
Author Name Unknown Address [address] [place] [address] Organization [facility] Care Team Providers Care Mower Sharpener Name Role Phone NAZEMI, JOSHUA I Unavailable Unavailable NAZEMI, JOSHUA I Unavailable Unavailable CROWDER, IMER Unavailable Unavailable NAZEMI, JOSHUA I Unavailable Unavailable NAZEMI, JOSHUA I Unavailable Unavailable CROWDER, IMER Unavailable Unavailable NAZEMI, JOSHUA I Unavailable Unavailable CROWDER, IMER Unavailable Unavailable CROWDER, IMER Unavailable Unavailable GRETA RODRIGES Unavailable Unavailable CROWDER, IMER~[id number] UNKNOWN Unavailable Unavailable CROWDER, IMER~[id number] UNKNOWN Unavailable Unavailable CROWDER, IMER~[id number] UNKNOWN Unavailable Unavailable CROWDER, IMER~[id number] UNKNOWN Unavailable Unavailable CROWDER, IMER~[id number] UNKNOWN Unavailable Unavailable CROWDER, IMER~[id number] UNKNOWN Unavailable Unavailable EdwinSavanah Attending Unavaila ble Crowder, Imer Reese Referring Unavailab le Crowder, Imer Reese Primary Care Unavailab le EdwinSavanah Attending Unavaila ble CrowderImer Referring Unavailab le Crowder, Imer Reese Primary Care Unavailab le EdwinSavanah Attending Unavaila ble Crowder, Imer Reese Referring Unavailab le Crowder, Imer Reese Primary Care Unavailab le CrowderImer Unavailable CrowderDO Imer Primary Care Provider [phone] DAYRON Fortune Attending Provider CROWDER, DR IMER [...] Interpretation Reference Range Facility Progress Noteson 10-11-2022 Distributing Clerk Authentication Interface Message Text Received call on 10/10 from Anju @ [facility] - requesting to reschedule the PSE appointment for today -- Offered another appointment on 10/14 and 10/15 -- Anju declined -- I explained to her that the surgery on 11/01 would be canceled. ----- Tuesday, October 11, 2022 at 9:35:03 AM ----- ----- Provider: Donna Clay Specialist -- Clinic: [facility] ----- Normal [facility] Telephone Encounteron 2022 Distributing Clerk Authentication Interface Message Text Reason for Escalation: Oneyda from [facility] calling in. She wanted to know more information about surgery date, time, and location. It looks like PSE has not been completed just yet. She wanted to speak to the OR licensed physical therapist directly if possible. Oneyda can be reached at [phone]. E-mail sent to Ana 09/23/22 Normal [facility] Progress Noteson 09-03-2022 Distributing Clerk Authentication Interface Message Text [facility] facility (Anju) was contacted for PSE AND OR scheduled -- confirmed information with guardian, also was informed importance of receiving PSE call -- if not received surgery will be canceled----- Saturday, September 03, 2022 at 11:11:13 AM ----- ----- Provider: Donna Clay Specialist -- [facility]: [facility] ----- [facility] UA (CLEAN/CATCH) CONFIGURATION ANALYST/MICRO I F IND.on 11-22-2021 Bilirubin Ql (U) Negative Normal NEGATIVE [facility] Comment on above: Performed By: #### U ACSIND, UMICRO #### [facility] [address] [address] [address] Noble Faulkner Clarity (U) CLEAR Normal CLEAR [facility] Comment on above: Performed By: #### U ACSIND, UMICRO #### [facility] [address] [address] [address] Noble Faulkner Color (U) LT. YELLOW Normal YELLOW [facility] Comment on above: Performed By: #### U ACSIND, UMICRO #### [facility] [address] [address] [address] Noble Faulkner Glucose Ql (U) Negative Normal NEGATIVE [facility] Comment on above: Performed By: #### U ACSIND, UMICRO #### [facility] [address] [address] [address] Noble Faulkner Hemoglobin Ql (U) Negative Normal NEGATIVE [facility] Comment on above: Performed By: #### U ACSIND, UMICRO #### [facility] [address] [address] [address] Noble Faulkner Ketones Ql (U) Negative Normal NEGATIVE [facility] Comment on above: Performed By: #### U ACSIND, UMICRO #### [facility] [address] [address] [address] Noble Faulkner LEUKOCYTES TRACE Abnormal NEGATIVE [facility] Comment on above: Performed By: #### U ACSIND, UMICRO #### [facility] [address] [address] [address] Noble Faulkner Nitrite Ql (U) Negative Normal NEGATIVE [facility] Comment on above: Performed By: #### U ACSIND, UMICRO #### [facility] [address] [address] [address] Noble Faulkner pH (U) 7.5 [pH] Normal 5-9 [facility] Comment on above: Performed By: #### U ACSNOMAN UMICRO #### [facility] [address] [place] [address] Dr. Noble Faulkner SPEC GRAVITY 1.015 Normal 1.005-<=1.02 5 [facility] Comment on above: Performed By: #### U ACSNOMAN UMICRO #### [facility] [address] [place] [address] Dr. Noble Faulkner UA PROTEIN Negative Normal NEGATIVE/ TRACE [facility] Comment on above: Performed By: #### U ACSNOMAN UMICRO #### [facility] [address] [place] [address] Dr. Noble Faulkner UR MICRO IND INDICATED Normal [facility] Comment on above: Performed By: #### U ACSNOMAN UMICRO #### [facility] [address] [place] [address] Dr. Noble Faulkner Urobilinogen Qn (U) 0.2 {Don'U}/dL Normal 0.2 - 1. 0 [facility] Comment on above: Performed By: #### U ACSNOMAN UMICRO #### [facility] [address] [place] [address] Dr. Noble Faulkner URINE MICROSCOPIC ONLYon AMORPHOUS CRYSTALS FEW Normal The [facility] Comment on above: Performed By: #### U ACSNOMAN UMICRO #### [facility] [address] [place] [address] Dr. Noble Faulkner BACTERIA TRACE Abnormal NONE SEEN [facility] Comment on above: Performed By: #### U ACSNOMAN UMICRO #### [facility] [address] [place] [address] Dr. Noble Faulkner Bacteria identified Cx Nom (U) NOT INDICATED Normal [facility] Comment on above: Performed By: #### U ACSNOMAN UMICRO #### [facility] [address] [place] [address] Dr. Noble Faulkner CAST NONE SEEN Normal NONE SEEN [facility] Comment on above: Performed By: #### U ACSIND, UMICRO #### [facility] [address] [address] [address] Noble Faulkner Crystals LM Nom (Urine sed) SEEN Abnormal NONE SEEN [facility] Comment on above: Performed By: #### U ACSIND, UMICRO #### [facility] [address] [address] [address] Noble Faulkner Epithelial cells LM Ql (Urine sed) FEW Abnormal NONE SEEN /RARE [facility] Comment on above: Performed By: #### U ACSIND, UMICRO #### [facility] [address] [address] [address] Noble Faulkner MUCOUS NONE SEEN Normal NONE SEEN [facility] Comment on above: Performed By: #### U ACSIND, UMICRO #### [facility] [address] [address] [address] Noble Faulkner RBC NONE SEEN Abnormal 0-2 [facility] Comment on above: Performed By: #### U ACSIND, UMICRO #### [facility] [address] [address] [address] Noble Faulkner WBC 0-2 Abnormal NONE SEEN [facility] Comment on above: Performed By: #### U ACSIND, UMICRO #### [facility] [address] [address] [address] Noble Faulkner Established Visit (Orthopaed ic [...] about her gait. She lives in [facility] and is with her caregiver today. She [...] in the past with Dr. Rodriges at [facility]. There has been no concern on [...] Sep 30 2021 12:40PM EST (Author) Normal [facility] Established Visit (Orthopaed ic Surgery)on 02-20-2021 Established [...] vertebrae. She has been living in [facility] for 5 years. Asha does not currently [...] Feb 20 2021 3:07PM EST (Author) Normal [facility] Progress Noteon 02-27-2018 HIM IP Note OR Distributing Clerk Normal [facility] Progress Noteon 01-23-2018 HIM IP Note OR Distributing Clerk Normal [facility] Progress Noteon 12-26-2017 HIM IP Note OR Distributing Clerk Normal [facility] Progress Noteon 12-05-2017 HIM IP Note OR Distributing Clerk Normal [facility] Progress Noteon 11-21-2017 HIM IP Note OR Distributing Clerk Normal [facility] Progress Noteon 11-09-2017 HIM IP Note OR Distributing Clerk Normal [facility] Progress Noteon 10-16-2017 HIM IP Note OR Distributing Clerk Normal [facility] Progress Noteon 10-10-2017 HIM IP Note OR Distributing Clerk Normal [facility] Progress Noteon 09-27-2017 HIM IP Note OR Distributing Clerk Normal [facility] Progress Noteon 09-17-2017 HIM IP Note OR Distributing Clerk Normal [facility] Homocysteineon 09-13-2017 Homocysteine 8.5 umol/L Normal <15.0 [facility] Comment on above: Result Comment: Perf ormed at [facility] [place], [place] [id number] ([phone] Performed By: #### C BC, HOCYS ####[facility] [place] [address] #### CP ####[address] [place] [address] CBCon 09-12-2017 Erythrocyte distribution width Auto Ratio (RBC) 11.9 % Normal 11.8-14.4 [facility] Comment on above: Performed By: #### C MARYA, HOCYS ####[address] [address] #### CP ####[address] [place] [address] Erythrocytes (RBC) 4.79 10*6/uL Normal 3.95-5.11 [facility] Comment on above: Performed By: #### C MARYA, HOCYS ####[address] [address] #### CP ####[address] [place] [id number] Erythrocytes (RBC) 0.0 per 100 WBC Normal 0.0 [facility] Comment on above: Result Comment: Perf ormed at [address] [address] Performed By: #### C MARYA, HOCYS ####[address] [address] #### CP ####[address] [place] [address] Hematocrit (HCT) 42.9 % Normal 36.3-47.1 [facility] Comment on above: Performed By: #### C MARYA, HOCYS ####[address] [address] #### CP ####[address] [place] [address] Hemoglobin mass conc (Bld) 14.9 g/dL Normal 11.9-15.1 [facility] Comment on above: Performed By: #### C MARYA, HOCYS ####[address] [address] #### CP ####[address] [place] [address] MCH 31.1 pg Normal 25.2-33.5 [facility] Comment on above: Performed By: #### C MARYA, HOCYS ####[address] [address] #### CP ####[address] [place] [address] MCHC mass conc (RBC) 34.7 g/dL Normal 28.4-34.8 [facility] Comment on above: Performed By: #### C MARYA, HOCYS ####[address] [address] #### CP ####[address] [place] [address] MCV 89.6 fL Normal 82.6-102.9 [facility] Comment on above: Performed By: #### C MARYA, HOCYS ####[address] [address] #### CP ####[address] [place] [address] Platelet mean volume (PMV) 10.9 fL Normal 8.1-13.5 [facility] Comment on above: Performed By: #### C MARYA, HOCYS ####[address] [address] #### CP ####[address] [place] [address] Platelets 170 10*3/uL Normal 138-453 [facility] Comment on above: Performed By: #### C BC, HOCYS ####[address] [place] [address] #### CP ####[address] [place] [address] WBC (Leukocytes) 8.7 10*3/uL Normal 4.5-13.5 [facility] Comment on above: Performed By: #### C MARYA, HOCYS ####[address] [address] #### CP ####[address] [place] [address] Comp Metabolic Profon 2017 (cont.) Normal [facility] Comment on above: Result Comment: Aver age GFR for 20-29 years old: 116 mL/min/1.73sq mChronic Kidney Disease: <60 mL/min/1.73sq mKidney failure: <15 mL/min/1.73sq meGFR calculated using average adult body mass. Additional eGFR calculator available at:http://www.[employer]/multiple_crcl_2012.htm Performed By: #### Alexys MALHOTRA, HOCYS ####[address] [address] #### CP ####[address] [place] [address] Alanine aminotransferase (ALT) 18 U/L Normal 5-33 [facility] Comment on above: Performed By: #### C MARYA, HOCYS ####[address] [address] #### CP ####[address] [place] [address] Albumin 4.2 g/dL Normal 3.5-5.2 [facility] Comment on above: Performed By: #### Alexys MALHOTRA, HOCYS ####[address] [address] #### CP ####[address] [place] [address] Albumin/Globulin Ratio 1.3 {ratio} Normal 1.0-2.5 [facility] Comment on above: Performed By: #### C BC, HOCYS ####[address] [address] #### CP ####[address] [place] [address] Alkaline Phos 112 U/L High 35-104 [facility] Comment on above: Performed By: #### C BC, HOCYS ####[address] [address] #### CP ####[address] [place] [address] Anion gap 12 mmol/L Normal 9-17 [facility] Comment on above: Performed By: #### C BC, HOCYS ####[address] [address] #### CP ####[address] [place] [address] Aspartate aminotransferase (AST) 25 U/L Normal <32 [facility] Comment on above: Performed By: #### C BC, HOCYS ####[address] [address] #### CP ####[address] [place] [address] Bilirubin Ql (U) 0.60 mg/dL Normal 0.3-1.2 [facility] Comment on above: Performed By: #### C BC, HOCYS ####[address] [address] #### CP ####[address] [place] [address] BUN/CRE Ratio 25 High 9-20 [facility] Comment on above: Performed By: #### C BC, HOCYS ####[address] [address] #### CP ####[address] [place] [address] Calcium 9.5 mg/dL Normal 8.6-10.4 [facility] Comment on above: Performed By: #### C BC, HOCYS ####[address] [address] #### CP ####[address] [place] [address] Chloride 103 mmol/L Normal 98-107 [facility] Comment on above: Performed By: #### C MARYA, HOCYS ####[address] [address] #### CP ####[address] [place] [address] CO2 24 mmol/L Normal 20-31 [facility] Comment on above: Performed By: #### C MARYA, HOCYS ####[address] [address] #### CP ####[address] [place] [address] Creatinine 0.69 mg/dL Normal 0.50-0.90 [facility] Comment on above: Performed By: #### C BC, HOCYS ####[address] [address] #### CP ####[address] [place] [address] eGFR (non-black) mL/min/{1.73_m2} Normal >60 [facility] Comment on above: Performed By: #### C BC, HOCYS ####[address] [address] #### CP ####[address] [place] [address] Glucose mass conc 97 mg/dL Normal 70-99 [facility] Comment on above: Performed By: #### C BC, HOCYS ####[address] [address] #### CP ####[address] [place] [address] Potassium molar conc 4.0 mmol/L Normal 3.7-5.3 [facility] Comment on above: Performed By: #### C BC, HOCYS ####[address] [address] #### CP ####[address] [place] [address] Protein 7.5 g/dL Normal 6.4-8.3 [facility] Comment on above: Performed By: #### C BC, HOCYS ####[address] [address] #### CP ####[address] [place] [address] Sodium 139 mmol/L Normal 135-144 [facility] Comment on above: Performed By: #### C BC, HOCYS ####[address] [address] #### CP ####[address] [place] [address] Staging: Normal [facility] Comment on above: Result Comment: Stag e 1: Some kidney damage normal GFRStage 2: Mild kidney damage GFR 60-89Stage 3: Moderate kidney damage GFR 30-59Stage 4: Severe kidney damage GFR 15-29Stage 5: Severe kidney damage GFR <15ESRD - chronic treatment by dialysis or transplantPerformed at [address] [place], [place] [id number] ([phone] Performed By: #### C BC, HOCYS ####[facility] [place] [address] #### CP ####[address] , [place] [address] Urea nitrogen 17 mg/dL Normal 6-20 [facility] Comment on above: Performed By: #### C BC, HOCYS ####[facility] [place] [address] #### CP ####[address] , [place] [address] History and Physicalon 09-12 HIM IP Note OR Distributing Clerk Normal [facility] Op Noteon 09-12-2017 HIM IP Note OR Distributing Clerk Normal [facility] Progress Noteon 09-12-2017 HIM IP Note OR Distributing Clerk Normal [facility] HIM IP Note OR Distributing Clerk Normal [facility] Progress Noteon 09-05-2017 HIM IP Note OR Distributing Clerk Normal [facility] HCG Screen, Bloodon 09-05-19 18 HCG Qn Negative Normal NEG [facility] Comment on above: Result Comment: Spec imens with hCG levels near the threshold of the test (25 mIU/mL) may give a negative or indeterminate result. In such cases, another test should be performed with a new specimen in 48-72 hours. If early is suspected clinically in this setting, correlation with quantitative serum b-hCG level is suggested.[facility] has confirmed the use of plasma for this test. This has not been cleared or approved by the U.S. Food and Drug Administration. The FDA has determined that such clearance is not necessary.Performed at [address] [place] [address] Performed By: #### H CG ####[address] [place] [address] Op Noteon 09-04-2017 HIM IP Note OR Distributing Clerk Normal [facility] Progress Noteon 09-04-2017 HIM IP Note OR Distributing Clerk Normal [facility] HIM IP Note OR Distributing Clerk Normal [facility] HIM IP Note OR Distributing Clerk Normal [facility] HIM IP Note OR Distributing Clerk Normal [facility] HIM IP Note OR Distributing Clerk Normal [facility] Surgical Pathologyon 018 Surgical Pathology (NOTE)[id number] Y LABORATORIESCONSULTING PATHOLOGISTS CORPORATIONANATOMIC [id number] [place] [address]. [place], [place] [address] Fax: SURGICAL PATHOLOGY CONSULTATIONPatient Name: [facility] Rec[facility] [id number] Number: [id number]: 09/04/2017Received: 09/05/2017Reported: 09/09/2017 11:14-- Diagnosis --SKIN AND [...] fascicles contain cells with foamy cytoplasm. An [id number] was performed and appears negative in these foci,excluding a granular cell tumor. Controls stain appropriately. Normal [facility] History and Physicalon 09-01 HIM IP Note OR Distributing Clerk Normal [facility] CNOVon 08-26-2017 CNOV Office Visit (ORTPMN) LUISJOB ([id number]) 1995 FDate Time Provider Department08/26/17 10:45 AM [...] by GRETA RODRIGES MD on 08/26/17 Normal [facility] PROGRESSon 08-26-2017 PROGRESS HNO ID: [id number] thor: Timoteo HeadSer: (none)Author Type: ResidentType: Progress [...] with emphasis on stretching.Timoteo Head, DO Normal [facility] PROGRESS HNO ID: [id number] thor: Greta Giordano: (none)Author Type: PhysicianType: Progress NotesFiled: 08/26/2017 11:14 AMNote Text:I have reviewed the history and physical obtained and documented by theresident and I personally participated in the coelho components. I agree withthe findings and plan of care, with the additions contained within mydictation.Greta Rodriges M.D. Normal [facility] Progress Noteon 08-20-2017 HIM IP Note OR Distributing Clerk Normal [facility] HIM IP Note OR Distributing Clerk Normal [facility] Progress Noteon 08-09-2017 HIM IP Note OR Distributing Clerk Normal [facility] OT-XR HIPS RANGEL 5V W PELVIS I MPORTon 07-09-2017 OT-XR HIPS RANGEL 5V W PELVIS IMPORT Images were obtained outside of [facility] [id number] Normal [facility] OT-XR L-SPINE MIN 4 VIEWS IM PORTon 07-09-2017 OT-XR L-SPINE MIN 4 VIEWS IMPORT Images were obtained outside of [facility] [id number] Normal [facility] Vital Signs Date Time Vital Sign Value Performing Clinician Satnam saravia 09-04-2021 15:32-0400 Body height 147.32 cm DO Imer Crowder Work Phone: [facility] 09-04-2021 15:32-0400 Body mass index (BMI) [Ratio] 30.2 kg/m2 DO Imer Crowder Work Phone: [facility] 09-04-2021 15:32-0400 Body weight 65.48 kg DO Imer Crowder Work Phone: [facility] 09-04-2021 15:12-0400 Body temperature 98.4 [degF] DO Imer Crowder Work Phone: [facility] 09-04-2021 15:12-0400 Respiratory rate 24 /min DO Imer Crowder Work Phone: [facility] Encounters Encounter Date Encounter Type Care Provider Facility Start: 09-23-2022 Telephone encounter Juan Manuel mills DDS Work Phone: [facility] Comment on above: Dental Start: 11-22-2021 End: 11-22-[address] IMER CROWDER Facility:[facility] Start: 09-24-2021 Office outpatient vi sit 15 minutes Imer Crowder Work Phone: [facility] Work Phone: Start: 09-24-2021 Patient encounter procedure Imer Crowder Work Phone: [facility] Work Phone: Start: 09-05-[address] IMER CROWDER Fac ility:[facility] Start: 09-04-2021 End: 09-04-2021 Discharged Recurring DO Imer Crowder Work Phone: [facility] Start: 02-20-2021 Office outpatient vi sit 15 minutes Imer Crowder Work Phone: [facility] Work Phone: Start: 02-07-2021 AUDIT Imer Feliz Work Phone: [facility] Work Phone: Start: 09-14-2018 Patient encounter procedure Savanah Pineda Facility:[id number] Start: 08-18-2018 Patient encounter procedure Savanah Pineda Facility:[id number] Start: 04-28-2018 End: 04-29-2018 Patient encounter procedure IMER~[id number] UNKNOWN CROWDER [facility] Start: 02-17-2018 Patient encounter procedure Savanah Pineda Facility:[id number] Start: 10-07-2017 End: 10-08-2017 Patient encounter procedure IMER~[id number] UNKNOWN CROWDER Facility[facility] Start: 09-12-2017 End: 09-13-2017 Ambulatory JOSHUA I NAZEMI [facility] Start: 09-04-2017 End: 09-04-2017 Ambulatory JOSHUA I NAZEMI [facility] Start: 08-26-2017 End: 08-27-2017 Ambulatory GRETA RODRIGES [facility] Start: 08-05-2017 End: 08-06-2017 Patient encounter procedure IMER~[id number] UNKNOWN CROWDER Facility:[facility] Procedures Date Procedure Procedure Detail Performing Clinician [...] 2) Shingles (RZV) Vaccine (1 of 2) [facility] Start: 11-01-2022 End: 11-01-2022 Admission to same day surgery center 11/01/2022 Surgery Ambulatory Surgery Lizbeth Romerorebeca Yordy, DDS [address] [place], [place] [id number] DENTAL RESTORATIONS [facility] Ambulatory Surgery Comment on above: DENTAL RESTORATIONS Start: 11-01-2022 End: 11-01-2022 DENTAL RESTORATIONS DENTAL RESTORATIONS Routine scheduled Caries 11/01/2022 11:28 AM EDT [facility] Start: 11-01-2022 Subsequent hospital visit by physician 11/01/2022 Hospital Encounter Ambulatory Surgery Lizbeth RomeroYordy jose, DDS [address] [place] [address] [facility] Start: 10-11-2022 End: 10-11-2022 Patient encounter procedure 10/11/2022 Office Visit Pediatric Comp Care Ayad Heck MD [address] [place] [address] [facility] Pediatric Comprehensive [facility] Start: 02-20-2021 FUV, Provider: Savanah Pineda, Status: Pen, Time: 1:45 PM FUV, Provider: Savanah Pineda, Status: Pen, Time: 1:45 PM [id number] Work Phone: Start: 2017 Screening for malign ant neoplasm of cervix Pap Smear [facility] Start: 2014 Hepatitis C screening Hepatitis C An tibody [facility] Start: 2014 Tetanus + diphtheria + acellular pertussis vaccine (product) Tdap Booster [facility] Start: 12-25-2011 HIV screening HIV Test [facility] Start: 12-25-2007 Vaccination for cabrera n papillomavirus Human Papilloma (HPV) Vaccine (1 - 2-dose series) [facility] Start: 06-26-1997 COVID-19 Vaccine (#1) COVID-19 Vacci ne (#1) [facility] Immunizations Immunization Date Immunization Notes Care Provider Fa cili 04-04-2021 influenza, injectabl e, quadrivalent, preservative [facility] 03-15-2014 TD(adult) unspecifie d formulation [facility] Work Phone: [facility] 09-21-2010 hepatitis A vaccine, pediatric/adolescent dosage, 2 dose schedule [facility] Work [facility]: [facility] 09-25-2009 hepatitis A vaccine, pediatric/adolescent dosage, 2 dose schedule [facility] Work Phone: [facility] 09-25-2009 meningococcal polysa ccharide vaccine (MPSV4) [facility] tolingoS Work Phone: [facility] 04-22-2002 diphtheria and tetan us toxoids, adsorbed for pediatric use [facility] Work Phone: [facility] 04-22-2002 measles, mumps and r ubella virus vaccine [facility] Work Phone: [facility] 04-22-2002 poliovirus [facility], [facility] 04-22-2002 varicella virus vaccine [facility] Work Phone: [facility] 01-14-2002 diphtheria and tetan us toxoids, adsorbed for pediatric use [facility] Work Phone: [facility] 01-14-2002 measles, mumps and r ubella virus vaccine Juan Manuel Al-Drisshni DDS Work Phone: [facility] 01-14-2002 poliovirus vaccine, inactivated Juan Manuel Al-Mashni DDS Work Phone: [facility] 08-08-1998 diphtheria and tetan us toxoids, adsorbed for pediatric use Juan Manuel Al-Drisshni DDS Work Phone: [facility] 08-08-1998 haemophilus influenz ae type b vaccine, conjugate unspecified formulation Juan Manuel Al-Drisshni DDS Work Phone: [facility] 08-08-1998 hepatitis B vaccine, pediatric or pediatric/adolescent dosage Juan Manuel Al-Drisshni DDS Work Phone: [facility] 08-08-1998 poliovirus vaccine, inactivated Juan Manuel Al-Drisshni DDS Work Phone: [facility] 06-30-1998 measles, mumps and r ubella virus vaccine Juan Manuel Al-Drisshni DDS Work Phone: [facility] 09-01-1997 diphtheria and tetan us toxoids, adsorbed for pediatric use Juan Manuel Al-Drisshni DDS Work Phone: [facility] 09-01-1997 haemophilus influenz ae type b vaccine, conjugate unspecified formulation Juan Manuel Al-Drisshni DDS Work Phone: [facility] 06-30-1997 diphtheria and tetan us toxoids, adsorbed for pediatric use Juan Manuel Al-Drisshni DDS Work Phone: [facility] 06-30-1997 poliovirus vaccine, inactivated Juan Manuel Al-Mashni DDS Work Phone: [facility] 03-25-1997 diphtheria, tetanus toxoids and acellular pertussis vaccine, unspecified formulation Juan Manuel Al-Drisshni DDS Work Phone: [facility] 03-25-1997 haemophilus influenz ae type b vaccine, conjugate unspecified formulation Juan Manuel Al-Drisshni DDS Work Phone: [facility] 02-23-1997 hepatitis B vaccine, pediatric or pediatric/adolescent dosage Juan Manuel Aleman DDS Work Phone: [facility] 02-23-1997 poliovirus vaccine, inactivated Juan Manuel Aleman DDS Work Phone: [facility] 1996 hepatitis B vaccine, pediatric or pediatric/adolescent dosage Juan Manuel Aleman DDS Work Phone: [facility] Payers Date Payer Category Payer Medicaid [id number] 1996 Unknown [id number] 2.16.84 [id number] 1996 Unknown [id number] 2.16.84 [id number] 1996 Unknown [id number] 2.16.84 [id number] 1996 Unknown [id number] 2.16. [id number] 1996 Unknown [id number] 2.16. [id number] 1996 Unknown [id number] 2.16. [id number] 1996 Unknown [id number] 2.16.84 [id number] 1996 Unknown [id number] 2.16.84 [id number] 1958 Medicaid [id number] Self-pay Self Pay [id number] Unknown MEDICAID Unknown Self Pay [id number] Social History Date Type Detail Facility Never a smoker Never a smoker [facility] Work Phone: Start: 1996 Sex Assigned At Female F [facility] Tobacco smoking status NHIS Tobacco smoking consumption unknown [facility] Start: 1996 Sex Assigned At Not on file [facility] Telephone encounter Note 09-23-2022 Telephone Encounter - Saima Sanchez - 09/23/2022 1:32 PM EDT Note Date & Type Note Facility 09-23-2022 Telephone encounter Note Form atting of this note might be different from the original. Reason for Escalation: Oneyda from [place] calling in. She wanted to know more information about surgery date, time, and location. It looks like PSE has not been completed just yet. She wanted to speak to the OR licensed physical therapist directly if possible. Oneyda can be reached at [phone]. E-mail sent to Ana 09/23/22 [facility]-23-[facility]22 Telephone Encounter - Saima Sanchez - 09/23/2022 1:32 PM EDT Note Date & Type Note Facility 09-23-2022 Miscellaneous Notes Formattin g of this note might be different from the original. Reason for Escalation: Oneyda from [place] calling in. She wanted to know more information about surgery date, time, and location. It looks like PSE has not been completed just yet. She wanted to speak to the OR licensed physical therapist directly if possible. Oneyda can be reached at [phone]. E-mail sent to Ana 09/23/22 documented in this encounter [facility] History of Present illness Narrative 09-30-2020 Note [...] about her gait. She lives in [facility] and is with her caregiver today. She [...] in the past with Dr. Rodriges at [facility]. There has been no concern on the part of the staff at her facility that she has had any pain since we last saw her. [facility] Work Phone: History of [...] about her gait. She lives in [facility] and is with her caregiver today. She [...] in the past with Dr. Rodriges at [facility]. There has been no concern on the part of the staff at her facility that she has had any pain since we last saw her. [facility] Work Phone: Evaluation note Note Date & Type Note Facility Evaluation note Diagnosis Onset Date Intact skin acute [facility] Work Phone: History of Present illness Narrative [...] vertebrae. She has been living in [facility] for 5 years. Asha does not currently wear any braces or orthotics. She does not take any medications for spasticity. [facility] Work Phone: Summary Purpose Family History [...] section and content) DATE CREATED AUTHOR 11/27/2017 [facility] DATE CREATED AUTHOR AUTHOR'S ORGANIZ ATION 12/11/2017 [facility] DATE CREATED AUTHOR AUTHOR'S ORGANIZ ATION 03/27/2018 [facility] DATE CREATED AUTHOR AUTHOR'S ORGANIZ ATION 05/18/2018 [facility] DATE CREATED AUTHOR AUTHOR'S ORGANIZ ATION 09/15/2018 [facility] DATE CREATED AUTHOR AUTHOR'S ORGANIZ ATION 10/01/2021 [facility] DATE CREATED AUTHOR AUTHOR'S ORGANIZ ATION 11/24/2021 [facility] DATE CREATED AUTHOR AUTHOR'S ORGANIZ ATION 10/14/2022 [facility] Care Teams (unrecognized sec tion and [...] BE BASED ON THE PRIMARY CLINICAL RECORDS. [facility] [employer] [facility]. provides no warranty or guarantee of the accuracy or completeness of information in this document.
[2023-07-17 08:12] LABS: Basophils Absolute Auto 0.1 10^3/uL (0.0-0.1); Basophils Percent Auto 0.6 % (0.2-2.0); Eosinophils Absolute Auto 0.2 10^3/uL (0.0-0.7); Eosinophils Percent Auto 2.6 % (0.9-7.0); Hematocrit 50.3 % (36.0-48.0); Hemoglobin 16.8 g/dL (12.0-16.0); Immature Granulocytes Abs Auto 0.02 10^3/uL (0.00-0.03); Immature Granulocytes Pct Auto 0.2 % (0.0-0.5); Lymphocytes Absolute Auto 2.6 10^3/uL (1.2-3.8); Lymphocytes Percent Auto 31.1 % (20.5-60.0); Mean Corpuscular HGB Conc 33.4 g/dL (29.9-35.2); Mean Corpuscular Hemoglobin 30.4 pg (26.7-34.0); Mean Corpuscular Volume 91.1 fL (81.0-99.0); Mean Platelet Volume 11.1 fL (9.5-13.5); Monocytes Absolute Auto 0.5 10^3/uL (0.3-0.8); Monocytes Percent Auto 6.3 % (1.7-12.0); Neutrophils Absolute Auto 4.9 10^3/uL (1.4-6.5); Neutrophils Percent Auto 59.2 % (43.0-75.0); Platelet Count 186 10^3/uL (150-450); Red Blood Count 5.52 10^6/uL (4.20-5.40); Red Cell Distribution Width 12.4 % (11.0-15.0); White Blood Count 8.2 10^3/uL (4.0-11.0)
[2023-07-17 08:37] LABS: Erythrocyte Sedimentation Rate 11 mm/hr (<=20)
[2023-07-17 08:50] LABS: Alanine Aminotransferase 25 U/L (14-59); Albumin Globulin Ratio 0.8; Albumin Level 3.8 g/dL (3.4-5.0); Alkaline Phosphatase 104 U/L (46-116); Anion Gap 14.7; Aspartate Amino Transferase 25 U/L (15-37); BUN Creatinine Ratio 21.6; Bilirubin Total 0.8 mg/dL (0.2-1.0); Calcium 9.5 mg/dL (8.5-10.1); Carbon Dioxide 25.5 mmol/L (21.0-32.0); Chloride 105 mmol/L (98-107); Chol HDL Ratio 4.4; Cholesterol 219 mg/dL (<=200); Estimated GFR (African America >60 (>=60); Estimated GFR (Non-African Ame >60 (>=60); Free T3 3.24 pg/mL (2.18-3.98); Globulin 4.5 g/dL; Glucose 91 mg/dL (74-106); HDL Cholesterol 50 mg/dL (40-60); Potassium 4.2 mmol/L (3.5-5.1); Sodium 141 mmol/L (136-145); Thyroid Stimulating Hormone 1.095 uIU/mL (0.358-3.740); Total Protein 8.3 g/dL (6.4-8.2); Triglycerides 114 mg/dL (<=150); Uric Acid 3.5 mg/dL (2.6-6.0); VLDL CHOLESTEROL 22.8 mg/dL
[2023-07-17 09:20] LABS: C Reactive Protein <0.50 mg/dL (<=0.50)
[2023-07-17 11:12] LABS: Free T4 1.15 ng/dL (0.76-1.46)
[2023-07-18 06:10] LABS: HIV Ab/p24 Ag Screen Non Reactive (Non Reactive)
[2023-07-18 10:11] LABS: Rapid Plasma Reagin, Quant Non Reactive titer (NonRea<1:1)
[2023-07-19 11:11] LABS: Antinuclear Antibodies, IFA Negative (.)
== END 2023-07-17 07:32 | disposition home or self-care (01) ==
LOC: LAB 07:32
PROVIDERS: PCP Family Medicine; Visit Provider Family Medicine
DX: T76.21XA Adult sexual abuse, suspected, initial encounter (principal); I73.9 Peripheral vascular disease, unspecified; Q22.1 Congenital pulmonary valve stenosis; F79 Unspecified intellectual disabilities
CPT/HCPCS: 36415; 80053; 80061; 82607; 82746; 84439; 84443; 84481; 84550; 85025; 85652; 86038; 86140; 86592; 87389

== ENCOUNTER 2023-08-19 11:47 | Outpatient (OUT) | payer MEDICAID, SELFPAY ==
[2023-08-20 05:08] LABS: HBsAg Screen Negative (Negative); HCV Ab Non Reactive (Non Reactive); Hep A Ab, IgM Negative (Negative); Hep B Core Ab, IgM Negative (Negative)
== END 2023-08-19 11:48 | disposition home or self-care (01) ==
LOC: LAB 11:49
PROVIDERS: PCP Family Medicine; Visit Provider Family Medicine
DX: Z20.5 Contact with and (suspected) exposure to viral hepatitis (principal)
CPT/HCPCS: 36415; 80074

== ENCOUNTER 2023-10-02 06:37 | Outpatient (OUT) | payer MEDICAID, SELFPAY ==
--- OUTSIDE RECORDS SUMMARY | 2023-10-02 06:41 | XMS_ITS | CCD ---
Author Organization [facility] Care Team Providers Care Styrene Dehydration Reactor Operator Name Role Phone NAZEMI, JOSHUA I Unavailable Unavailable NAZEMI, JOSHUA I Unavailable Unavailable CROWDER, IMER Unavailable Unavailable NAZEMI, JOSHUA I Unavailable Unavailable NAZEMI, JOSHUA I Unavailable Unavailable CROWDER, IMER Unavailable Unavailable NAZEMI, JOSHUA I Unavailable Unavailable CROWDER, IMER Unavailable Unavailable CROWDER, IMER Unavailable Unavailable GURDGRETA Unavailable Unavailable CROWDER, IMER~[id number] UNKNOWN Unavailable Unavailable CROWDER, IMER~[id number] UNKNOWN Unavailable Unavailable CROWDER, IMER~[id number] UNKNOWN Unavailable Unavailable CROWDER, IMER~[id number] UNKNOWN Unavailable Unavailable CROWDER, IMER~[id number] UNKNOWN Unavailable Unavailable CROWDER, IMER~[id number] UNKNOWN Unavailable Unavailable HewlettSavanah Attending Unavaila ble Crowder, Imer Reese Referring Unavailab le Crowder, Imer Reese Primary Care Unavailab le HewlettSavanah Attending Unavaila ble Crowder, Imer Reese Referring Unavailab le Crowder, Imer Reese Primary Care Unavailab le HewlettSavanah Attending Unavaila ble Crowder, Imer Reese Referring Unavailab le Crowder, Imer Reese Primary Care Unavailab le CrowderImer Unavailable DO Imer Crowder Primary Care Provider [phone] DAYRON Fortune Attending Provider LAKESHA, DR IMER Zuniga Attending Unavailable CROWDER, DR IMER Zuniga Admitting Unavailable CROWDER, DR IMER Zuniga Consulting Unavailable CROWDER, DR IMER Zuniga Attending Unavailable CROWDER, DR IMER Zuniga Admitting Unavailable Unavailable Primary Care Provider Unavailabl e Crowder, DO Imer Zuniga Primary Care Provider DO Timoteo Head Attending Provider Laura Fortune Attending Unavailable Laura Fortune Admitting Unavailable Imer Crowder Primary Care Unavailable Medications Current Medications Medication Drug Class(es) Dates [...] [Nonrheumatic pulmonary valve stenosis] Onset: 12-17-2013 Chronic Osteoarthritis (4 sources) Osteoarthritis of left hip joint; Translations: [Unilateral primary osteoarthritis, left hip] 08-27-2023 Chronic Other acquired deformities (4 sources) Contracture [...] of left hip] Episodic Other congenital anomalies (3 sources) Congenital fusion of spine; Translations: [Other congenital malformations of spine, not associated with scoliosis] 09-04-2021 Chronic Other congenital anomalies (3 sources) Congenital anomaly of face; 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, unspecified] 09-04-2021 Chronic Other congenital anomalies (4 sources) Other specified congenital deformities of hip; Translations: [Congenital dysplasia of left hip] 08-27-2023 Chronic Other connective tissue disease (4 sources) Spasticity; Translations: [Abnormal involuntary movements] Episodic Other eye disorders (1 source) Nystagmus; Translations: [Unspecified nystagmus] Onset: 12-17-2013 Chronic Other nervous system disorders (1 source) Other acute postprocedural pain; Translations: [Other acute postprocedural pain] Onset: 09-04-2017 Episodic Other non-traumatic joint disorders (2 sources) Hip pain; Translations: [Pain in left hip] 08-25-2023 Episodic Residual codes; unclassified (3 sources) Intact skin; Translations: [Other specified health status] [...] Interpretation Reference Range Facility Progress Noteson 10-11-2022 [facility] Authentication Interface Message Text Received call on 10/10 from Anju @ [facility] - requesting to reschedule the PSE appointment for today -- Offered another appointment on 10/14 and 10/15 -- Anju declined -- I explained to her that the surgery on 11/01 would be canceled. ----- Tuesday, October 11, 2022 at 9:35:03 AM ----- ----- Provider: Donna Clay Specialist -- Clinic: [place] ----- Normal [facility] Telephone Encounteron 2022 [facility] Authentication Interface Message Text Reason for Escalation: Oneyda from [facility] calling in. She wanted to know more information about surgery date, time, and location. It looks like PSE has not been completed just yet. She wanted to speak to the OR patient transporter directly if possible. Oneyda can be reached at [phone]. 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 Noble Faulkner Clarity (U) CLEAR Normal CLEAR [facility] Comment on above: Performed By: #### U ACSIND, UMICRO #### [facility] [address] [address] [address] Noble Faulkner Color (U) LT. YELLOW Normal YELLOW [facility] Comment on above: Performed By: #### U ACSIND, UMICRO #### [facility] [address] [address] [address] Noble Faulkner Glucose Ql (U) Negative Normal NEGATIVE [facility] Comment on above: Performed By: #### U ACSIND, UMICRO #### [facility] [address] [address] [address] Noble Faulkner Hemoglobin Ql (U) Negative Normal NEGATIVE [facility] Comment on above: Performed By: #### U ACSIND, UMICRO #### [facility] [address] [address] [address] Noble Faulkner Ketones Ql (U) Negative Normal NEGATIVE [facility] Comment on above: Performed By: #### U ACSIND, UMICRO #### [facility] [address] [address] [address] Noble Faulkner LEUKOCYTES TRACE Abnormal NEGATIVE [facility] Comment on above: Performed By: #### U ACSNOMAN UMICRO #### [facility] [address] [address] [address] Noble Faulkner Nitrite Ql (U) Negative Normal NEGATIVE [facility] Comment on above: Performed By: #### U ACSNOMAN UMICRO #### [facility] [address] [place] [address] Dr. Noble Faulkner pH (U) 7.5 [pH] Normal 5-9 [facility] Comment on above: Performed By: #### U ACSNOMAN UMICRO #### [facility] [address] [place] [address] Dr. Noble Faulkner SPEC GRAVITY 1.015 Normal 1.005-<=1.02 5 [facility] Comment on above: Performed By: #### U ACSNOMAN UMICRO #### [facility] [address] [place] [address] Dr. Noble Faulkner UA PROTEIN Negative Normal NEGATIVE/ TRACE [facility] Comment on above: Performed By: #### U ACSNOMAN UMICRO #### [facility] [address] [place] [address] Dr. Noble Faulkner UR MICRO IND INDICATED Normal [facility] Comment on above: Performed By: #### U ACSNOMAN UMICRO #### [facility] [address] [place] [address] Dr. Noble Faulkner Urobilinogen Qn (U) 0.2 {Don'U}/dL Normal 0.2 - 1. 0 [facility] Comment on above: Performed By: #### U ACSNOMAN UMICRO #### [facility] [address] [place] [address] Dr. Noble Faulkner URINE MICROSCOPIC ONLYon AMORPHOUS CRYSTALS FEW Normal [facility] Comment on above: Performed By: #### U ACSIND, UMICRO #### [facility] [address] [place] [address] Dr. Noble Faulkner BACTERIA TRACE Abnormal NONE SEEN [facility] Comment on above: Performed By: #### U ACSIND, UMICRO #### [facility] [address] [address] [address] Noble Faulkner Bacteria identified Cx Nom (U) NOT INDICATED Normal [facility] Comment on above: Performed By: #### U ACSIND, UMICRO #### [facility] [address] [address] [address] Noble Faulkner CAST NONE SEEN Normal NONE SEEN [facility] Comment on above: Performed By: #### U ACSIND, UMICRO #### [facility] [address] [address] [address] Noble Faulkner Crystals LM Nom (Urine sed) SEEN Abnormal NONE SEEN [facility] Comment on above: Performed By: #### U ACSIND, UMICRO #### [facility] [address] [place] [address] Dr. Noble Faulkner Epithelial cells LM Ql (Urine sed) FEW Abnormal NONE SEEN /RARE [facility] Comment on above: Performed By: #### U ACSIND, UMICRO #### [facility] [address] [place] [address] Dr. Noble Faulkner MUCOUS NONE SEEN Normal NONE SEEN [facility] Comment on above: Performed By: #### U ACSIND, UMICRO #### [facility] [address] [place] [address] Dr. Noble Faulkner RBC NONE SEEN Abnormal 0-2 [facility] Comment on above: Performed By: #### U ACSNOMAN, UMICRO #### [facility] [address] [place] [address] Dr. Noble Faulkner WBC 0-2 Abnormal NONE SEEN [facility] Comment on above: Performed By: #### U ACSIND, UMICRO #### [facility] [address] [place] [address] Dr. Noble Faulkner Established Visit (Orthopaed ic Surgery)on 09-24-2021 Established Visit (Orthopaedic Surgery) Diagnoses/Problems Assessed Hallux valgus, acquired (735.0) (M20.10) Spasticity (781.0) (R25.2) Patient Discussion/Summary Diana's feet do show signs of flat feet, [...] her gait. She lives in [facility] and is with her caregiver [...] in the past with Dr. Rodriges at [facility] There has been no concern on [...] She has been living in [facility] for 5 years. Asha does [...] Feb 20 2021 3:07PM EST (Author) Normal [facility] Progress Noteon 02-27-2018 HIM IP Note OR [facility] Normal [facility] Progress Noteon 01-23-2018 HIM IP Note OR [facility] Normal [facility] Progress Noteon 12-26-2017 HIM IP Note OR [facility] Normal [facility] Progress Noteon 12-05-2017 HIM IP Note OR [facility] Normal [facility] Progress Noteon 11-21-2017 HIM IP Note OR [facility] Normal [facility] Progress Noteon 11-09-2017 HIM IP Note OR [facility] Normal [facility] Progress Noteon 10-16-2017 HIM IP Note OR [facility] Normal [facility] Progress Noteon 10-10-2017 HIM IP Note OR [facility] Normal [facility] Progress Noteon 09-27-2017 HIM IP Note OR [facility] Normal [facility] Progress Noteon 09-17-2017 HIM IP Note OR [facility] Normal [facility] Homocysteineon 09-13-2017 Homocysteine 8.5 umol/L Normal <15.0 [facility] Comment on above: Result Comment: Perf ormed at [address] [address] Performed By: #### C MARYA, HOCYS ####[address] [address] #### CP ####[address] [place] [address] CBCon 09-12-2017 Erythrocyte distribution width Auto Ratio (RBC) 11.9 % Normal 11.8-14.4 [facility] Comment on above: Performed By: #### C MARYA, HOCYS ####[address] [address] #### CP ####[address] [place] [id number] Erythrocytes (RBC) 4.79 10*6/uL Normal 3.95-5.11 [facility] Comment on above: Performed By: #### C MARYA, HOCYS ####[address] [address] #### CP ####[address] [place] [address] Erythrocytes (RBC) 0.0 per 100 WBC Normal 0.0 [facility] Comment on above: Result Comment: Perf ormed at [address] [address] Performed By: #### C BC, HOCYS ####[address] [address] #### CP ####[address] [place] [address] Hematocrit (HCT) 42.9 % Normal 36.3-47.1 [facility] Comment on above: Performed By: #### C BC, HOCYS ####[address] [address] #### CP ####[address] [place] [address] Hemoglobin mass conc (Bld) 14.9 g/dL Normal 11.9-15.1 [facility] Comment on above: Performed By: #### C BC, HOCYS ####[address] [address] #### CP ####[address] [place] [address] MCH 31.1 pg Normal 25.2-33.5 [facility] Comment on above: Performed By: #### C MARYA, HOCYS ####[address] [address] #### CP ####[address] [place] [address] MCHC mass conc (RBC) 34.7 g/dL Normal 28.4-34.8 [facility] Comment on above: Performed By: #### C BC, HOCYS ####[address] [address] #### CP ####[address] [place] [address] MCV 89.6 fL Normal 82.6-102.9 [facility] Comment on above: Performed By: #### C BC, HOCYS ####[address] [address] #### CP ####[address] [place] [address] Platelet mean volume (PMV) 10.9 fL Normal 8.1-13.5 [facility] Comment on above: Performed By: #### C BC, HOCYS ####[address] [place] [address] #### CP ####[address] [place] [address] Platelets 170 10*3/uL Normal 138-453 [facility] Comment on above: Performed By: #### C BC, HOCYS ####[address] [address] #### CP ####[address] [place] [address] WBC (Leukocytes) 8.7 10*3/uL Normal 4.5-13.5 [facility] Comment on above: Performed By: #### Alexys MALHOTRA, HOCYS ####[address] [address] #### CP ####[address] [place] [address] Comp Metabolic Profon 2017 (cont.) Normal [facility] Comment on above: Result Comment: Aver age GFR for 20-29 years old: 116 mL/min/1.73sq mChronic Kidney Disease: <60 mL/min/1.73sq mKidney failure: <15 mL/min/1.73sq meGFR calculated using average adult body mass. Additional eGFR calculator available at:http://www.[employer]/multiple_crcl_2012.htm Performed By: #### C BC, HOCYS ####[facility] [address] [place] [address] #### CP ####[address] [place] [address] Alanine aminotransferase (ALT) 18 U/L Normal 5-33 [facility] Comment on above: Performed By: #### C MARYA, HOCYS ####[address] [place] [address] #### CP ####[address] [place] [address] Albumin 4.2 g/dL Normal 3.5-5.2 [facility] Comment on above: Performed By: #### C BC, HOCYS ####[address] [address] #### CP ####[address] [place] [address] Albumin/Globulin Ratio 1.3 {ratio} Normal 1.0-2.5 [facility] Comment on above: Performed By: #### C BC, HOCYS ####[address] [address] #### CP ####[address] [place] [address] Alkaline Phos 112 U/L High 35-104 [facility] Comment on above: Performed By: #### C BC, HOCYS ####[address] [address] #### CP ####[address] [place] [address] Anion gap 12 mmol/L Normal 9-17 [facility] Comment on above: Performed By: #### C BC, HOCYS ####[address] [address] #### CP ####[address] [place] [address] Aspartate aminotransferase (AST) 25 U/L Normal <32 [facility] Comment on above: Performed By: #### C BC, HOCYS ####[address] [address] #### CP ####[address] [place] [address] Bilirubin Ql (U) 0.60 mg/dL Normal 0.3-1.2 [facility] Comment on above: Performed By: #### C BC, HOCYS ####[address] [address] #### CP ####[address] [place] [address] BUN/CRE Ratio 25 High 9-20 [facility] Comment on above: Performed By: #### C BC, HOCYS ####[address] [address] #### CP ####[address] [place] [address] Calcium 9.5 mg/dL Normal 8.6-10.4 [facility] Comment on above: Performed By: #### C BC, HOCYS ####[address] [address] #### CP ####[address] [place] [address] Chloride 103 mmol/L Normal 98-107 [facility] Comment on above: Performed By: #### C BC, HOCYS ####[address] [address] #### CP ####[address] [place] [address] CO2 24 mmol/L Normal 20-31 [facility] Comment on above: Performed By: #### C BC, HOCYS ####[address] [address] #### CP ####[address] [place] [address] Creatinine 0.69 mg/dL Normal 0.50-0.90 [facility] Comment on above: Performed By: #### C MARYA, HOCYS ####[address] [address] #### CP ####[address] [place] [address] eGFR (non-black) mL/min/{1.73_m2} Normal >60 [facility] Comment on above: Performed By: #### C BC, HOCYS ####[address] [address] #### CP ####[address] [place] [address] Glucose mass conc 97 mg/dL Normal 70-99 [facility] Comment on above: Performed By: #### C MARYA, HOCYS ####[address] [address] #### CP ####[address] [place] [address] Potassium molar conc 4.0 mmol/L Normal 3.7-5.3 [facility] Comment on above: Performed By: #### C MARYA, HOCYS ####[address] [address] #### CP ####[address] [place] [address] Protein 7.5 g/dL Normal 6.4-8.3 [facility] Comment on above: Performed By: #### C MARYA, HOCYS ####[address] [address] #### CP ####[address] [place] [address] Sodium 139 mmol/L Normal 135-144 [facility] Comment on above: Performed By: #### C BC, HOCYS ####[address] [place] [address] #### CP ####[address] [place] [address] Staging: Normal [facility] Comment on above: Result Comment: Stag e 1: Some kidney damage normal GFRStage 2: Mild kidney damage GFR 60-89Stage 3: Moderate kidney damage GFR 30-59Stage 4: Severe kidney damage GFR 15-29Stage 5: Severe kidney damage GFR <15ESRD - chronic treatment by dialysis or transplantPerformed at [address] [place], [place] [id number] [phone]. Performed By: #### C BC, HOCYS ####[address] [address] #### CP ####[address] [place] [address] Urea nitrogen 17 mg/dL Normal 6-20 [facility] Comment on above: Performed By: #### C BC, HOCYS ####[address] [address] #### CP ####[address] [place] [address] History and Physicalon 09-12 HIM IP Note OR [facility] Normal [facility] Op Noteon 09-12-2017 HIM IP Note OR [facility] Normal [facility] Progress Noteon 09-12-2017 HIM IP Note OR [facility] Normal [facility] HIM IP Note OR [facility] Normal [facility] Progress Noteon 09-05-2017 HIM IP Note OR [facility] Normal [facility] HCG Screen, Bloodon 09-05-19 18 HCG Qn Negative Normal NEG [facility] Comment on above: Result Comment: Spec imens with hCG levels near the threshold of the test (25 mIU/mL) may give a negative or indeterminate result. In such cases, another test should be performed with a new specimen in 48-72 hours. If early is suspected clinically in this setting, correlation with quantitative serum b-hCG level is suggested.[facility] has confirmed the use of plasma for this test. This has not been cleared or approved by the U.S. Food and Drug Administration. The FDA has determined that such clearance is not necessary.Performed at [address] [place] [address] [phone] Performed By: #### H CG ####[address] [place] [address] Op Noteon 09-04-2017 HIM IP Note OR [facility] Normal [facility] Progress Noteon 09-04-2017 HIM IP Note OR [facility] Normal [facility] HIM IP Note OR [facility] Normal [facility] HIM IP Note OR [facility] Normal [facility] HIM IP Note OR [facility] Normal [facility] IP Note OR [facility] Normal [facility] Surgical Pathologyon 018 Surgical Pathology (NOTE)[id number] Y LABORATORIESCONSULTING PATHOLOGISTS CORPORATIONANATOMIC FATEOVMHP[address] [place] [phone] Fax: SURGICAL PATHOLOGY CONSULTATIONPatient Name: [facility] Rec[facility] [id number] Number: [id number]: 09/04/2017Received: 09/05/2017Reported: 09/09/2017 11:14-- Diagnosis --SKIN AND [...] fascicles contain cells with foamy cytoplasm. An [id number] was performed and appears negative in these foci,excluding a granular cell tumor. Controls stain appropriately. Normal [facility] History and Physicalon 09-01 HIM IP Note OR [facility] Normal [facility] CNOVon 08-26-2017 CNOV Office Visit (ORTPMN) JOB SMITH ([id number]) 1995 FDate Time Provider Department08/26/17 10:45 AM [...] by GRETA RODRIGES MD on 08/26/17 Normal [facility] PROGRESSon 08-26-2017 PROGRESS HNO ID: [id number] thor: Timoteo HeadSer: (none)Author Type: ResidentType: Progress [...] with emphasis on stretching.Timoteo Head, DO Normal [facility] PROGRESS HNO ID: [id number] thor: Greta Giordano: (none)Author Type: PhysicianType: Progress NotesFiled: 08/26/2017 11:14 AMNote Text:I have reviewed the history and physical obtained and documented by theresident and I personally participated in the coelho components. I agree withthe findings and plan of care, with the additions contained within mydictation.Greta Rodriges M.D. Normal [facility] Progress Noteon 03-14-2018 HIM IP Note OR [facility] Normal [facility] HIM IP Note OR [facility] Normal [facility] Progress Noteon 08-09-2017 HIM IP Note OR [facility] Normal [facility] OT-XR HIPS RANGEL 5V W PELVIS I MPORTon 07-09-2017 OT-XR HIPS RANGEL 5V W PELVIS IMPORT Images were obtained outside of [facility] [id number] Normal [facility] OT-XR L-SPINE MIN 4 VIEWS IM PORTon 07-09-2017 OT-XR L-SPINE MIN 4 VIEWS IMPORT Images were obtained outside of [facility] [id number] Normal [facility] Vital Signs Date Time Vital Sign Value Performing Clinician Satnam saravia 08-27-2023 11:09-0400 Body height 147.32 cm DO Imer Crowder Work Phone: [facility] 08-27-2023 11:09-0400 Body mass index (BMI) [Ratio] 26.9 kg/m2 DO Imer Crowder Work Phone: [facility] 08-27-2023 11:09-0400 Body weight 58.57 kg DO Imer Crowder Work Phone: [facility] 09-04-2021 15:32-0400 Body height 147.32 cm DO Imer Crowder Work Phone: [facility] 09-04-2021 15:32-0400 Body mass index (BMI) [Ratio] 30.2 kg/m2 DO Imer Crowder Work Phone: [facility] 09-04-2021 15:32-0400 Body weight 65.48 kg DO Imer Crowder Work Phone: [facility] 09-04-2021 15:12-0400 Body temperature 98.4 [degF] DO Imer Crowder Work Phone: [facility] 09-04-2021 15:12-0400 Respiratory rate 24 /min DO Imer Crowder Work Phone: [facility] Encounters Encounter Date Encounter Type Care Provider Facility Start: 08-27-2023 End: 08-27-2023 ambulatory DO Imer Crowder Work Phone: [facility] Work Phone: Start: 08-27-2023 End: 08-27-2023 Patient encounter procedure DO Imer Crowder Work Phone: [facility] Work Phone: Start: 09-23-2022 Telephone encounter Juan Manuel mills DDS Work Phone: [facility] Comment on above: Dental Start: 11-22-2021 End: 11-22-[address] IMER CROWDER Facility:H1 Start: 09-24-2021 Office outpatient vi sit 15 minutes Imer Crowder Work Phone: [facility] Work Phone: Start: 09-24-2021 Patient encounter procedure Imer Crowder Work Phone: [facility]-Unwsbscnpbfe-Thbzyp [facility] Work Phone: Start: 09-05-[address] IMER CROWDER Fac ility:H1 Start: 09-04-2021 End: 09-04-2021 ambulatory Laura Fortune Facility:[facility] Start: 09-04-2021 End: 09-04-2021 Discharged Recurring DO Imer Crowder Work Phone: [facility] Start: 02-20-2021 Office outpatient vi sit 15 minutes Imer Crowder Work Phone: [facility]Pmtyrl[facility]paav[facility]Dcd[facility] Work Phone: Start: 02-07-2021 AUDIT Imer Feliz ng Work Phone: [facility] Work Phone: Start: 09-14-2018 Patient encounter procedure Savanah Pineda Facility:[id number] Start: 08-18-2018 Patient encounter procedure Savanah Pineda Facility:[id number] Start: 04-28-2018 End: 04-29-2018 Patient encounter procedure [id number] UNKNOWN CROWDER Facility[facility] Start: 02-17-2018 Patient encounter procedure Savanah Pineda Facility:[id number] Start: 10-07-2017 End: 10-08-2017 Patient encounter procedure [id number] UNKNOWN CROWDER Facility:[facility] Start: 09-12-2017 End: 09-13-2017 Ambulatory JOSHUA I NAZEMI [facility] Start: 09-04-2017 End: 09-04-2017 Ambulatory JOSHUA I NAZEMI [facility] Start: 08-26-2017 End: 08-27-2017 Ambulatory GRETA RODRIGES [facility] Start: 08-05-2017 End: 08-06-2017 Patient encounter procedure [id number] UNKNOWN CROWDER Facility:[facility] Procedures Date Procedure Procedure Detail Performing Clinician [...] 2) Shingles (RZV) Vaccine (1 of 2) [facility] Start: 08-27-2023 Patient referral [facility] Work Phone: Start: 11-01-2022 End: 11-01-2022 Admission to same day surgery center 11/01/2022 Surgery Ambulatory Surgery Yordy Bronson, DDS [address] [address] DENTAL [facility]ATIONS [facility] Comment on above: [facility] Start: 11-01-2022 End: 11-01-2022 DENTAL RESTORATIONS D[facility] Routine scheduled Caries 11/01/2022 11:28 AM EDT [facility] Start: 11-01-2022 Subsequent hospital visit by physician 11/01/2022 Hospital Encounter Ambulatory Surgery Yordy Bronson, DDS [address] [place] [address] [facility] Start: 10-11-2022 End: 10-11-2022 Patient encounter procedure 10/11/2022 Office Visit Pediatric Comp Care Ayad Heck MD [address] [place] [id number] [facility] Start: 02-20-2021 FUV, Provider: Savanah Pinead, Status: Pen, Time: 1:45 PM FUV, Provider: Savanah Pineda, Status: Pen, Time: 1:45 PM [facility] Work Phone: Start: 2017 Screening for malign ant neoplasm of cervix Pap Smear [facility] Start: 2014 Hepatitis C screening Hepatitis C An tibody [facility] Start: 2014 Tetanus + diphtheria + acellular pertussis vaccine (product) Tdap Booster [facility] Start: 12-25-2011 HIV screening HIV Test [facility] Start: 12-25-2007 Vaccination for cabrera n papillomavirus Human Papilloma (HPV) Vaccine (1 - 2-dose series) [facility] Start: 06-26-1997 COVID-19 Vaccine (#1) COVID-19 Vacci ne (#1) [facility] Patient referral [facility] Work Phone: Immunizations Immunization Date Immunization Notes Care Provider Daisy fam 04-04-2021 influenza, injectabl e, quadrivalent, preservative free Juan Manuel Al-Mashni DDS Work Phone: [facility] 03-15-2014 TD(adult) unspecifie d formulation Juan Manuel Al-Mashni DDS Work Phone: [facility] 09-21-2010 hepatitis A vaccine, pediatric/adolescent dosage, 2 dose schedule Juan Manuel Al-Mashni DDS Work Phone: [facility] 09-25-2009 hepatitis A vaccine, pediatric/adolescent dosage, 2 dose schedule Juanm Anuel Al-Mashni DDS Work Phone: [facility] 09-25-2009 meningococcal polysa ccharide vaccine (MPSV4) Juan Manuel Al-Mashni DDS Work Phone: [facility] 04-22-2002 diphtheria and tetan us toxoids, adsorbed for pediatric use Juan Manuel Al-Mashni DDS Work Phone: [facility] 04-22-2002 measles, mumps and r ubella virus vaccine Juan Manuel Al-Mashni DDS Work Phone: [facility] 04-22-2002 poliovirus vaccine, inactivated Juan Manuel Al-Mashni DDS Work Phone: [facility] 04-22-2002 varicella virus vaccine Lait h Al-Mashni DDS Work Phone: [facility] 01-14-2002 diphtheria and tetan us toxoids, adsorbed for pediatric use Juan Manuel Al-Mashni DDS Work Phone: [facility] 01-14-2002 measles, mumps and r ubella virus vaccine Juan Manuel Al-Mashni DDS Work Phone: [facility] 01-14-2002 poliovirus vaccine, inactivated Juan Manuel Al-Mashni DDS Work Phone: [facility] 08-08-1998 diphtheria and tetan us toxoids, adsorbed for pediatric use Juan Manuel Al-Mashni DDS Work Phone: [facility] 08-08-1998 haemophilus influenz ae type b vaccine, conjugate unspecified formulation Juan Manuel Al-Mashni DDS Work Phone: [facility] 08-08-1998 hepatitis B vaccine, pediatric or pediatric/adolescent dosage Juan Manuel Al-Mashni DDS Work Phone: [facility] 08-08-1998 poliovirus vaccine, inactivated Juan Manuel Al-Mashni DDS Work Phone: [facility] 06-30-1998 measles, mumps and r ubella virus vaccine Juan Manuel Al-Mashni DDS Work Phone: [facility] 09-01-1997 diphtheria and tetan us toxoids, adsorbed for pediatric use Juan Manuel Al-Mashni DDS Work Phone: [facility] 09-01-1997 haemophilus influenz ae type b vaccine, conjugate unspecified formulation Juan Manuel Al-Mashni DDS Work Phone: [facility] 06-30-1997 diphtheria and tetan us toxoids, adsorbed for pediatric use Juan Manuel Al-Mashni DDS Work Phone: [facility] 06-30-1997 poliovirus vaccine, inactivated Juan Manuel Al-Mashni DDS Work Phone: [facility] 03-25-1997 diphtheria, tetanus toxoids and acellular pertussis vaccine, unspecified formulation Juan Manuel Al-Mashni DDS Work Phone: [facility] 03-25-1997 haemophilus influenz ae type b vaccine, conjugate unspecified formulation Juan Manuel Al-Mashni DDS Work Phone: [facility] 02-23-1997 hepatitis B vaccine, pediatric or pediatric/adolescent dosage Juan Manuel Al-Mashni DDS Work Phone: [facility] 02-23-1997 poliovirus vaccine, inactivated Juan Manule Al-Mashni DDS Work Phone: [facility] 1996 hepatitis B vaccine, pediatric or pediatric/adolescent dosage Juan Manuel Aleman DDS Work Phone: [facility] Payers Date Payer Category Payer Self-pay [id number] 2013 Medicaid [id number] 1996 Unknown [id number] 2.16.84 [id number] 1996 Unknown [id number] 2.16.84 [id number] 1996 Unknown [id number] 2.16.84 [id number] 1996 Unknown [id number] 2.16. [id number] 1996 Unknown [id number] 2.16. [id number] 1996 Unknown [id number] 2.16. [id number] 1996 Unknown [id number] 2.16.84 [id number] 1996 Unknown [id number] 2.16.84 [id number] 1958 Medicaid [id number] Unknown MEDICAID Unknown [id number] Unknown [id number] [id number] Social History Date Type Detail Facility Never a smoker Never a smoker [facility] Work Phone: Start: 1996 Sex Assigned At Female F [facility] Tobacco smoking status [facility]IS Tobacco smoking consumption unknown [facility] Start: 1996 Sex Assigned At Not on file [facility] Telephone encounter Note 09-23-2022 Telephone Encounter - Saima Sanchez - 09/23/2022 1:32 PM EDT Note Date & Type Note Facility 09-23-2022 Telephone encounter Note Form atting of this note might be different from the original. Reason for Escalation: Oneyda from [place] calling in. She wanted to know more information about surgery date, time, and location. It looks like PSE has not been completed just yet. She wanted to speak to the OR patient transporter directly if possible. Oneyda can be reached at [phone]. E-mail sent to [facility] 09/23/22 [facility] Note 09-23-2022 Telephone Encounter - Saima Sanchez - 09/23/2022 1:32 PM EDT Note Date & Type Note Facility 09-23-2022 Miscellaneous Notes Formattin g of this note might be different from the original. Reason for Escalation: Oneyda from [facility] calling in. She wanted to know more information about surgery date, time, and location. It looks like PSE has not been completed just yet. She wanted to speak to the OR patient transporter directly if possible. Oneyda can be reached at [phone]. E-mail sent to [facility] 09/23/22 documented in this encounter [facility] History of Present illness Narrative 09-30-2020 Note [...] her gait. She lives in [facility] and is with her caregiver [...] toe surgeries in the past with Dr. Rodirges at [facility]. There has been no concern on the part of the staff at her facility that she has had any pain since we last saw her. [facility] Work Phone: History of Present illness [...] her gait. She lives in [facility] and is with her caregiver [...] in the past with Dr. Rodriges at [facility]. There has been no concern on the part of the staff at her facility that she has had any pain since we last saw her. [facility] Work Phone: Evaluation note Note Date & Type Note Facility Evaluation note Diagnosis Onset Date Intact skin acute [facility] Work Phone: Evaluation note Note Date & Type Note Facility Evaluation note Diagnosis Onset Date Congenital dysplasia of left hip acute Osteoarthritis of left hip a cute [facility] Work Phone: History of Present illness [...] She has been living in [facility] for 5 years. Asha does not currently wear any braces or orthotics. She does not take any medications for spasticity. [facility] Work Phone: Summary Purpose Family History [...] Date/ Time Advance Directives No August 30, 022 9:36am Chief Complaint and Reason for Visit Chief Complaint 2 @ rt foot/ pos stg 1 lower back/ [place] Reason for Visit Intact skin Chief Complaint NEW SEVERE LT HIP PA IN NX M25.552 - Pain in left hip Reason for Visit Congenital dysplasia of left hip Osteoarthritis of left hip Additional Source Comments INFORMATION SOURCE (unrecogn ized section and content) DATE CREATED AUTHOR 11/27/2017 [facility] DATE CREATED AUTHOR AUTHOR'S ORGANIZ ATION 12/11/2017 [facility] DATE CREATED AUTHOR AUTHOR'S ORGANIZ ATION 03/27/2018 [facility] DATE CREATED AUTHOR AUTHOR'S ORGANIZ ATION 05/18/2018 [facility] DATE CREATED AUTHOR AUTHOR'S ORGANIZ ATION 09/15/2018 [facility] DATE CREATED AUTHOR AUTHOR'S ORGANIZ ATION 10/01/2021 [facility] DATE CREATED AUTHOR AUTHOR'S ORGANIZ ATION 11/24/2021 [facility] DATE CREATED AUTHOR AUTHOR'S ORGANIZ ATION 10/14/2022 [facility] DATE CREATED AUTHOR AUTHOR'S ORGANIZ ATION 09/17/2023 [facility] Care Teams (unrecognized sec tion and content) Team Status: Inactive Member Role Status Dates Imer Crowder DO Primary Care Provider Active Laura Fortune APRN Attending Provider Active Team Status: Active Member Role Status Dates Imer Crowder DO Primary Care Provider Active Team Status: Inactive Member Role Status Dates Imer Crowder DO Primary Care Provider Active Start: August 27, 2023 End: August 27, 2023 Timoteo Head DO Attending Provider Active S tart: August 27, 2023 End: August 27, 2023 Team Status: Active Member Role Status Dates Imer A DO Lakesha Primary Care Provider Active Start: August 27, 2023 Timoteo Head , DO Attending Provider Active S tart: August 27, 2023 Goals (unrecognized section and content) Goals may be documented in a n alternate sectionGoals may be documented in an alternate sectionGoals may be documented in an alternate section Reason for Visit (unrecogniz ed [...] BE BASED ON THE PRIMARY CLINICAL RECORDS. [facility] [employer], [facility]. provides no warranty or guarantee of the accuracy or completeness of information in this document.
[2023-10-03 08:12] LABS: HBsAg Screen Negative (Negative); HCV Ab Non Reactive (Non Reactive); Hep A Ab, IgM Negative (Negative); Hep B Core Ab, IgM Negative (Negative)
== END 2023-10-02 06:38 | disposition home or self-care (01) ==
LOC: LAB 06:38
PROVIDERS: PCP Family Medicine; Visit Provider Family Medicine
DX: Z20.5 Contact with and (suspected) exposure to viral hepatitis (principal)
CPT/HCPCS: 36415; 80074

== ENCOUNTER 2024-03-02 06:25 | Outpatient (OUT) | payer MEDICAID, SELFPAY ==
--- OUTSIDE RECORDS SUMMARY | 2024-03-02 06:27 | XMS_ITS | CCD ---
Author Organization [facility] Care Team Providers Care 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 Name Role Phone NAZEMI, JOSHUA I Unavailable Unavailable NAZEMI, JOSHUA I Unavailable Unavailable CROWDER, IMER Unavailable Unavailable NAZEMI, JOSHUA I Unavailable Unavailable NAZEMI, JOSHUA I Unavailable Unavailable CROWDER, IMER Unavailable Unavailable NAZEMI, JOSHUA I Unavailable Unavailable CROWDER, IMER Unavailable Unavailable CROWDER, IMER Unavailable Unavailable Edwin, Savanah Fabian Attending Unavaila ble Crowder, Imer Reese Referring Unavailab le Crowder, Imer Reese Primary Care Unavailab le Edwin, Savanah Fabian Attending Unavaila ble Crowder, Imer Reese Referring Unavailab le Crowder, Imer Reese Primary Care Unavailab le Edwin, Savanah Fabian Attending Unavaila ble Crowder, Imer Reese Referring Unavailab le Crowder, Imer Reese Primary Care Unavailab le CrowderImer Unavailable DO Imer Crowder Primary Care Provider DAYRON Fortune Attending Provider DR IMER CROWDER Attending Unavailable CROWDER, DR IMER Zuniga Admitting Unavailable CROWDER, DR IMER Zuniga Consulting Unavailable CROWDER, DR IMER Zuniga Attending Unavailable CROWDER, DR IMER Zuniga Admitting Unavailable Unavailable Primary Care Provider Unavailabl e CrowderDO Imer Primary Care Provider DO Angel Luque Attending Provider [phone] Laura Fortune Attending Unavailable Laura Fortune Admitting Unavailable CrowderImer Primary Care Unavailable Xiomara ECHOLS, Gustavo [place] Primary Care Provider Angel Luque DO Unavailable IMER CROWDER Primary Care Physician [phone] ANGEL LUQUE Referring Unavailable XIOMARA GRAEMEKIMBERLEY LONDON Primary Care Unavailab SADIE Lopez Attending Unavailable IMER CROWDER Referring Unavailable IMER CROWDER Attending Unavailable IMER CROWDER Admitting Unavailable Medications Current Medications Medication Drug Class(es) Dates Sig (Normalized) Sig (Original) acetaminophen 500 mg oral tablet (13 sources) Start: 10-30-2023 take 2 tablets by mouth three times daily acetaminophen (TYLENOL) 500 mg tablet Take 2 tablets by mouth three times a day. 10/30/2023 Active Start: 10-30-2023 take 2 tablets by mo uth every four hours as needed acetaminophen (TYLENOL) 325 mg tablet Take 2 tablets by mouth every 4 hours as needed for pain or fever (specify temp.). 10/30/2023 Active Acetaminophen (T YLENOL 8 HOUR ORAL) Take by mouth. 0 Active loratadine 10 mg oral tablet (1 source) take 1 tablet by wilber th once daily loratadine (CLARITIN) 10 MG tablet [...] Ordered: 23-Oct-2020 DO Start : 19-Oct-2020 Active baclofen 10 mg oral tablet (1 source) gamma-Aminobutyri c Acid-ergic Agonist Start: 12-21-2010 End: 10-30-2023 take 1 tablet by mouth three times daily, then take 1 tablet by mouth once daily at bedtime, then take 2 tablets by mouth three times daily baclofen 10 mg ORAL tablet Take 1 tablet by mouth three times daily. Start with 1 tab daily at bedtime, increase to a maximum dose of 2 tabs three times a day 180 tablet 5 12/21/2010 10/30/2023 Discontinued (Discontinued by another Health Care Provider) guaiFENesin 400 mg oral tablet (4 sources) [...] tablet (3 sources) Serotonin-3 Receptor Antagonist Start: take 1 tablet by mouth every six [...] region and thigh] Chronic Other acquired deformities (9 sources) Scoliosis deformity of spine; Translations: [Scoliosis, unspecified] Onset: 03-15-2003 10-03-2003 Chronic Other acquired deformities (2 sources) Acquired [...] dysplasia of left hip] 08-27-2023 Chronic Other congenital anomalies (1 source) Congenital hip dysplasia; Translations: [Other specified congenital deformities of hip] 10-30-2023 Chronic Other congenital anomalies (3 sources) Anomaly of chromosome pair 7; Translations: [Other specified chromosome abnormalities] 10-30-2023 Chronic Other connective tissue disease (4 sources) Spasticity; Translations: [Abnormal involuntary movements] Episodic Other eye disorders (1 source) Nystagmus; Translations: [Unspecified nystagmus] Onset: 12-17-2013 Chronic Other nervous system disorders (1 source) Other acute postprocedural pain; Translations: [Other acute postprocedural pain] Onset: 09-04-2017 Episodic Other non-traumatic joint disorders (2 sources) Hip pain; Translations: [Pain in left hip] 08-25-2023 Episodic Paralysis (8 sources) Diplegia; Translations: [Other cerebral palsy] Onset: 12-21-2010 10-30-2023 Chronic Residual codes; unclassified (3 sources) Intact skin; [...] INTELLECTUAL DISABILITY() Onset: 09-12-2017 Unclassified (1 source) NO SHOW 01-30-2024 Past or Other Problems Problem Classification Problem [...] Test Name Value Interpretation Reference Range Facility XR Adult Swallowing Function w/ Videoon 02-10-2024 XR Adult Swallowing Function w/ Video Exam Date/Time: 02/10/2024 09:55 EDT Reason for Exam: R13.10 Dysphagia, unspecified Report IMPRESSION: NEGATIVE LIMITED MODIFIED BARIUM SWALLOW. A FULL REPORT WILL BE MADE BY THE SPEECH PATHOLOGY TEAM. EXAM: XR Adult Swallowing Function w/ Video DATE: 02/10/2024 9:27 AM CLINICAL HISTORY: R13.10 Dysphagia, unspecified. COMPARISON: None available. TECHNIQUE: Lateral videofluoroscopy was provided during speech therapy evaluation during ingestion of various barium liquids and semisolids. A total of 7.70 mGy Air Kerma (Ka, r) of fluoroscopy was used with 7 fluoroscopic cine series saved. No diagnostic images were obtained. FINDINGS: The study is somewhat limited secondary to the patient's medical condition and cooperation. Oral and pharyngeal phases are within functional limits. There is no significant laryngeal penetration, tracheal aspiration or significant residual collections observed. A full report will be made by the speech pathology team. Ordering Provider: IMER CROWDER FINAL REPORT Dictated: 02/10/2024 11:22 am Ray Mcqueen MD Signed (Electronic Signature): 02/10/2024 11:22 am Signed by: Ray Mcqueen MD Transcribed by: KEANU Technologist: LEONA Technical Comments Radiation Dose: Ka,r in mGy = 7.70 DAP = 177.74 Normal [facility] CNOVon 01-30-2024 CNOV Office Visit (REHMMN ) ----- RADHA SMITH ([id number]) 1995 F Date Time Provider Department 01/30/24 11:00 AM SADIE MENG During your visit today, we recorded the following information about you: Sadie Meng MD 01/30/2024 12:20 PM Signed The patient was a no show. Allergies As of Date: 01/30/2024 (No Known Allergies) Date Reviewed: 10/30/2023 Reviewed by: Sadie Meng MD - Fully Assessed Reason for Visit: No Show [1558] Primary Visit Diagnosis:NO SHOW Prescriptions as of 01/30/2024 - acetaminophen (TYLENOL) 500 mg tablet Take 2 tablets by mouth three times a day. - acetaminophen (TYLENOL) 325 mg tablet Take 2 tablets by mouth every 4 hours as needed for pain or fever (specify temp.). 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 It doesn't look like anything is scheduled for x-rays with sedation. Where are we with this? Thanks, Rosette Bloom RN 01/29/2024 10:49 AM Signed Called radiology Talked with Ray He again sent message to safety committee to contact patient regarding anesthesia for xrays to be scheduled Scoliosis and bilat hip under anesthesia Need new order for scoliosis to only say anesthesia - pending order sent to Sadie Alamo MD 01/29/2024 10:58 AM Signed I reviewed orders and agree. 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 - acetaminophen (TYLENOL) 325 mg tablet Take 2 tablets by mouth every 4 hours as needed for pain or fever (specify temp.). 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 They will look out for order changes Reason for call : Other : Brief description of concern : Scheduling called to advised that they do not put patient under anesthesia for X rays only CT or MRI. Order will need to be changed. Scheduling did speak with anesthesia and Xray techs and they advised this is not possible they can not do anesthesia for X ray. Rosette Briseno RN 01/29/2024 3:02 PM Signed Reviewed with Viji Ramachandran MD McKee, Keith, MD; Elizabeth Reid MD Cc: Noel Weinstein MD; Rosette Briseno RN Hi Keith, I'm covering Elizabeth's inbox while she is out. I have never had a patient get sedation for Xrays only. Usually if they get sedation it is for other things and they throw the Xray or MRI on at that time for ease/decreased visits. Viji De La Torre Allergies As of Date: 01/29/2024 (No Known Allergies) Date Reviewed: 10/30/2023 Reviewed by: Sadie Meng MD - Fully Assessed Reason for Visit: Orders [681] Prescriptions as of 01/29/2024 - acetaminophen (TYLENOL) 500 mg tablet Take 2 tablets by mouth three times a day. - acetaminophen (TYLENOL) 325 mg tablet Take 2 tablets by mouth every 4 hours as needed for pain or fever (specify temp.). 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]12/21/2010 Encounter Status:Closed by ROSETTE BRISENO on 01/29/24 [facility] 11-11-2023 CNPN Telephone ([facility] ----- RADHA SMITH ([id number]) 1995 F Date Time Provider Department 11/11/23 SADIE MENG During your visit today, we recorded the following information about you: Rosette Briseno RN 11/11/2023 10:21 AM Signed Called left message to call office Xray and ortho appts Lisbet Barboza PA-C McKee, Keith, MD; Rosette Briseno RN Hi, My only suggestion would be to try zanax 0.5mg (or whatever you're comfortable with) one hour before the imaging and just see if the patient can be calm enough to withstand the xray for the few minutes it will take to get the pictures and have them done at a facility. [place] Previous Messages ----- Message ----- From: Sadie Meng MD Sent: 11/05/2023 12:47 PM EDT To: Rosette Briseno RN; BRISEIDA Villalpando, She most likely will need anesthesia. I had a hard time examining her in the office. Also, probably better if x-rays are done at [facility] facility if possible so that they may be readily accessible in [facility]. Any suggestions? 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 Understands additional risk with sedation Reviewed may need preop appt with anesthesia for this Mom will bring patient to this appt OK with coming to [facility] Avoid for scheduling She will schedule ORTO appt after imaging is scheduled Mom is asking if patient can also have scoliosis films done at the same time Has history of scoliosis; wore brace but has not had any follow up since seen by Dr Gurd Will check with Dr Meng to see if OK to add on scoliosis films - last xray done 2018 Will call her back once this is arranged/scheduled she verbalized understanding and agrees with plan Called radiology to confirm an xray can be done with anesthesia No specific order for this; will need to have in comments: patient requires anesthesia for x-rays. Imaging will need to send to Safety Team for review before this can be scheduled Rosette Briseno RN 11/13/2023 1:25 PM Addendum Called radiology, talked with Marychuy Will forward to safety committee She states it may take 10-14 days to receive a call to schedule Will monitor weekly to make sure gets scheduled Allergies As of Date: 11/11/2023 (No Known Allergies) Date Reviewed: 10/30/2023 Reviewed by: Sadie Meng MD - Fully Assessed Reason for Visit: Appointment [186] Prescriptions as of 11/13/2023 - acetaminophen (TYLENOL) 500 mg tablet Take 2 tablets by mouth three times a day. - acetaminophen (TYLENOL) 325 mg tablet Take 2 tablets by mouth every 4 hours as needed for pain or fever (specify temp.). 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 PRINCIPAL NEUROLOGIC DIAGNOSIS: Chromosome 7 abnormality (inverted duplication) HISTORY OF ILLNESS: Date of Onset: BRIEF NARRATIVE DESCRIBING HISTORY: This 27 year old right handed female was referred by Angel Luque DO for a spasticity consult. The patient was accompanied by her parents. Medical records from [facility] and Care Everywhere were reviewed. 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 She is here today at the request of orthopedics. She has bilateral hip dysplasia and was referred to [facility] for further evaluation. Parents are unable to determine if there is pain. She is ambulatory independently and mother notes that walking has worsened over the last 6 months. She has a history of hip surgery at [facility] (approximately 1997) but mother is uncertain of which side. Mother notes that she has stiffness in her legs. She does not like taking medications but was on oral baclofen several years ago but she is unable to determine efficacy. She has had multiple surgeries including achilles tendon lengthening and toe flexor tendon releases. She has physical therapy. She resides at [facility]. Symptoms/Functional Limitations Related to Spasticity: Stiffness: She has stiffness in her legs per mother Spasms: Unable to determine Spasticity interferes with sleep: Unable to determine Spasticity interferes with function: Unable to determine SPASM SCALE: No spasm Pain related to the purpose of the visit: Unable to determine Patient Entered Data PROMIS No data to display Spasticity NRS No data to display Spasm Scale No data to display Global Impression of Change No data to display Treatments for Spasticity and Results of Treatments: Stretching/exercise: She is in physical therapy Oral medications: baclofen previously, unable to determine efficacy Botulinum toxin injections: No Intrathecal baclofen therapy: No Other: No Evolution of disability: Gait disturbance since , ambulates independently but has a walker. Current functional status: She is independent in feeding (set up). She requires assistance with dressing and bathing. She requires assistance with stairs. She requires assistance getting in and out of the shower and uses a shower chair. She requires assistance with transfers. She requires assistance with grooming. Mood: Anxiety Memory: MR but mother notes that memory is good Bowel: Incontinence Bladder: Incontinence Fatigue: No issues Current functional status: Incapacity Status Scale Stair Climbin Ambulation: 3 Toilet/Chair/Bed Transfer: 3 Bowel Function: 2 Bladder Function: 2 Bathin Dressin Groomin Feedin Vision: Unable to determine Speech and Hearin Medical Problems: 1 Mood and Thought Disturbance: 2 Mentation: 3 Fatigability: 0 Sexual Function: Not asked Total score: 33 Skin: Bunions on feet Nutritional status: appetite is good, weight is stable, swallowing with no issues per mother, has dysphagia per facility with mechanical soft diet and thin liquids Driving issues: NA Safety concerns regarding living situations and safety at home: No, she resides at [facility] in [place], [place] Risk of falls: Yes, but no recent falls Review of Systems Constitutional: Negative. Skin: Negative. HENT: Positive for trouble swallowing. Musculoskeletal: Positive for muscle weakness. Respiratory: Negative. Cardiovascular: Negative. Gastrointestinal: Incontinence Endocrine: Negative. Genitourinary: Positive for incontinence. Hematologic/Lymphatic: Negative. Psychiatric: Positive for nervous/anxious. All other systems reviewed and are negative. Review of Diagnostic Studies: No recent studies Labs Reviewed: None Pertinent History reviewed. No pertinent past medical history. History reviewed. No pertinent surgical history. Social History Tobacco Use Smoking status: Never Smokeless tobacco: Never Substance Use Topics Alcohol use: Never Drug use: Never History reviewed. No pertinent family history. PHYSICAL EXAMINATION: Musculoskeletal: Full passive range of motion is noted in all extremities (has contractures in bilateral ankle plantar flexors). Cognitive/Behavioral: The pa (more content not included)... Normal [facility] Physician Orderon 10-24-2023 Physician Order [id number] Normal [facility] Progress Noteson 10-11-2022 Nurse Wound Care Authentication Interface Message Text Received call on 10/10 from Anju @ [facility] - requesting to reschedule the PSE appointment for today -- Offered another appointment on 10/14 and 10/15 -- Anju declined -- I explained to her that the surgery on 11/01 would be canceled. ----- Tuesday, October 11, 2022 at 9:35:03 AM ----- ----- Provider: AFDonna Alexandre Specialist -- Clinic: [facility] ----- Normal [facility] Telephone Encounteron 2022 Nurse Wound Care Authentication Interface Message Text Reason for Escalation: Oneyda from [facility] calling in. She wanted to know more information about surgery date, time, and location. It looks like PSE has not been completed just yet. She wanted to speak to the OR breakfast hostess directly if possible. Oneyda can be reached at [phone]. E-mail sent to Ana 09/23/22 Normal [facility] Progress Noteson 09-03-2022 Nurse Wound Care Authentication Interface Message Text [facility] facility (Anju) was contacted for PSE AND OR scheduled -- confirmed information with guardian, also was informed importance of receiving PSE call -- if not received surgery will be canceled----- Saturday, September 03, 2022 at 11:11:13 AM ----- ----- Provider: Donna Clay Specialist -- Clinic: [facility] ----- Normal [facility] UA (CLEAN/CATCH) BOBBIN FIXER/MICRO I F IND.on 11-22-2021 Bilirubin Ql (U) Negative Normal NEGATIVE [facility] Comment on above: Performed By: #### U ACSIND UMICRO #### [facility] [address] [place] [address] Dr. Noble Faulkner Clarity (U) CLEAR Normal CLEAR [facility] Comment on above: Performed By: #### U ACSIND UMICRO #### [facility] [address] [address] [address] Noble Faulkner Color (U) LT. YELLOW Normal YELLOW [facility] Comment on above: Performed By: #### U ACSIND, UMICRO #### [facility] [address] [address] [address] Noble Faulkner Glucose Ql (U) Negative Normal NEGATIVE [facility] Comment on above: Performed By: #### U ACSIND, UMICRO #### [facility] [address] [address] [address] Noble Faulkner Hemoglobin Ql (U) Negative Normal NEGATIVE [facility] Comment on above: Performed By: #### U ACSIND, UMICRO #### [facility] [address] [address] [address] Noble Faulkner Ketones Ql (U) Negative Normal NEGATIVE [facility] Comment on above: Performed By: #### U ACSIND, UMICRO #### [facility] [address] [address] [address] Noble Faulkner LEUKOCYTES TRACE Abnormal NEGATIVE [facility] Comment on above: Performed By: #### U ACSIND, UMICRO #### [facility] [address] [address] [address] Noble Faulkner Nitrite Ql (U) Negative Normal NEGATIVE [facility] Comment on above: Performed By: #### U ACSIND, UMICRO #### [facility] [address] [address] [address] Noble Faulkner pH (U) 7.5 [pH] Normal 5-9 [facility] Comment on above: Performed By: #### U ACSNOMAN, UMICRO #### [facility] [address] [address] [address] Noble Faulkner SPEC GRAVITY 1.015 Normal 1.005-<=1.02 5 [facility] Comment on above: Performed By: #### U ACSNOMAN, UMICRO #### [facility] [address] [address] [address] Noble Faulkner UA PROTEIN Negative Normal NEGATIVE/ TRACE [facility] Comment on above: Performed By: #### U ACSNOMAN, UMICRO #### [facility] [address] [address] [address] Noble Faulkner UR MICRO IND INDICATED Normal [facility] Comment on above: Performed By: #### U ACSNOMAN, UMICRO #### [facility] [address] [address] [address] Noble Faulkner Urobilinogen Qn (U) 0.2 {Don'U}/dL Normal 0.2 - 1. 0 [facility] Comment on above: Performed By: #### U ACSIND, UMICRO #### [facility] [address] [address] [address] Noble Faulkner URINE MICROSCOPIC ONLYon AMORPHOUS CRYSTALS FEW Normal [facility] Comment on above: Performed By: #### U ACSIND, UMICRO #### [facility] [address] [address] [address] Noble Faulkner BACTERIA TRACE Abnormal NONE SEEN [facility] Comment on above: Performed By: #### U ACSIND, UMICRO #### [facility] [address] [address] [address] Noble Faulkner Bacteria identified Cx Nom (U) NOT INDICATED Normal [facility] Comment on above: Performed By: #### U ACSIND, UMICRO #### [facility] [address] [place] [address] Dr. Noble Faulkner CAST NONE SEEN Normal NONE SEEN [facility] Comment on above: Performed By: #### U ACSIND, UMICRO #### [facility] [address] [place] [address] Dr. Noble Faulkner Crystals LM Nom (Urine sed) SEEN Abnormal NONE SEEN [facility] Comment on above: Performed By: #### U ACSIND, UMICRO #### [facility] [address] [place] [address] Dr. Noble Faulkner Epithelial cells LM Ql (Urine sed) FEW Abnormal NONE SEEN /RARE [facility] Comment on above: Performed By: #### U ACSIND, UMICRO #### [facility] [address] [place] [address] Dr. Noble Faulkner MUCOUS NONE SEEN Normal NONE SEEN [facility] Comment on above: Performed By: #### U ACSIND, UMICRO #### [facility] [address] [address] [address] Noble Faulkner RBC NONE SEEN Abnormal 0-2 [facility] Comment on above: Performed By: #### U ACSIND, UMICRO #### [facility] [address] [place] [address] Dr. Noble Faulkner WBC 0-2 Abnormal NONE SEEN [facility] Comment on above: Performed By: #### U ACSIND, UMICRO #### [facility] [address] [address] [address] Noble Faulkner Established Visit (Orthopaed ic [...] [facility] and is with her caregiver today. She [...] toe surgeries in the past with Dr. Stevenson at [facility]. There has been no concern on the [...] Sep 30 2021 12:40PM EST (Author) Normal Atomic Reach Established Visit (Orthopaed ic Surgery)on 02-20-2021 Established [...] [facility] for 5 years. Asha does not currently [...] No Known Drug Allergies Recorded By: Savanah Pindea; 02/17/2018 10:59:35 PM Current Meds Medication NameInstruction [...] Feb 20 2021 3:07PM EST (Author) Normal [facility] [place] Progress Noteon 02-27-2018 HIM IP Note OR Nurse Wound Care Normal [facility] Progress Noteon 01-23-2018 HIM IP Note OR Nurse Wound Care Normal [facility] Progress Noteon 12-26-2017 HIM IP Note OR Nurse Wound Care Normal [facility] Progress Noteon 12-05-2017 HIM IP Note OR Nurse Wound Care Normal [facility] Progress Noteon 11-21-2017 HIM IP Note OR Nurse Wound Care Normal [facility] Progress Noteon 11-09-2017 HIM IP Note OR Nurse Wound Care Normal [facility] Progress Noteon 10-16-2017 HIM IP Note OR Nurse Wound Care Normal [facility] Progress Noteon 10-10-2017 HIM IP Note OR Nurse Wound Care Normal [facility] Progress Noteon 09-27-2017 HIM IP Note OR Nurse Wound Care Normal [facility] Progress Noteon 09-17-2017 HIM IP Note OR Nurse Wound Care Normal [facility] Homocysteineon 09-13-2017 Homocysteine 8.5 umol/L Normal <15.0 [facility] Comment on above: Result Comment: Perf ormed at [address] [address] Performed By: #### Alexys MALHOTRA HOCYS ####[address] [address] #### CP ####[address] [place] [address] CBCon 09-12-2017 Erythrocyte distribution width Auto Ratio (RBC) 11.9 % Normal 11.8-14.4 [facility] Comment on above: Performed By: #### C MARYA HOCYS ####[address] [address] #### CP ####[address] [place] [address] Erythrocytes (RBC) 4.79 10*6/uL Normal 3.95-5.11 [facility] Comment on above: Performed By: #### C MARYA HOCYS ####[address] [address] #### CP ####[address] [place] [address] Erythrocytes (RBC) 0.0 per 100 WBC Normal 0.0 [facility] Comment on above: Result Comment: Perf ormed at [address] [address] Performed By: #### C BC, HOCYS ####[address] [address] #### CP ####[address] [place] [address] Hematocrit (HCT) 42.9 % Normal 36.3-47.1 [facility] [place] Comment on above: Performed By: #### C BC, HOCYS ####[address] [address] #### CP ####[address] [place] [address] Hemoglobin mass conc (Bld) 14.9 g/dL Normal 11.9-15.1 [facility] Comment on above: Performed By: #### C MARYA, HOCYS ####[address] [address] #### CP ####[address] [place] [address] MCH 31.1 pg Normal 25.2-33.5 [facility] Comment on above: Performed By: #### C BC, HOCYS ####[address] [address] #### CP ####[address] [place] [address] MCHC mass conc (RBC) 34.7 g/dL Normal 28.4-34.8 [facility] Comment on above: Performed By: #### C BC, HOCYS ####[address] [address] #### CP ####[address] [place] [address] MCV 89.6 fL Normal 82.6-102.9 [facility] Comment on above: Performed By: #### C BC, HOCYS ####[address] [address] #### CP ####[address] [place] [address] Platelet mean volume (PMV) 10.9 fL Normal 8.1-13.5 [facility] Comment on above: Performed By: #### C BC, HOCYS ####[address] [address] #### CP ####[address] [place] [address] Platelets 170 10*3/uL Normal 138-453 [facility] Comment on above: Performed By: #### C BC, HOCYS ####[address] [address] #### CP ####[address] [place] [address] WBC (Leukocytes) 8.7 10*3/uL Normal 4.5-13.5 [facility] Comment on above: Performed By: #### C MARYA, HOCYS ####[address] [address] #### CP ####[address] [place] [address] Comp Metabolic Profon 2017 (cont.) Normal [facility] Comment on above: Result Comment: Aver age GFR for 20-29 years old: 116 mL/min/1.73sq mChronic Kidney Disease: <60 mL/min/1.73sq mKidney failure: <15 mL/min/1.73sq meGFR calculated using average adult body mass. Additional eGFR calculator available at:http://www.[employer].Youtopia/multiple_crcl_2012.htm Performed By: #### C BC, HOCYS ####[address] [address] #### CP ####[address] [place] [address] Alanine aminotransferase (ALT) 18 U/L Normal 5-33 [facility] Comment on above: Performed By: #### C BC, HOCYS ####[address] [address] #### CP ####[address] [place] [address] Albumin 4.2 g/dL Normal 3.5-5.2 [facility] Comment on above: Performed By: #### C BC, HOCYS ####[address] [address] #### CP ####[address] [place] [address] Albumin/Globulin Ratio 1.3 {ratio} Normal 1.0-2.5 [facility] Comment on above: Performed By: #### C BC, HOCYS ####[address] [address] #### CP ####[address] [place] [address] Alkaline Phos 112 U/L High 35-104 [facility] Comment on above: Performed By: #### C BC, HOCYS ####[address] [address] #### CP ####[address] [place] [address] Anion gap 12 mmol/L Normal 9-17 [facility] Comment on above: Performed By: #### C BC, HOCYS ####[address] [address] #### CP ####[address] [place] [address] Aspartate aminotransferase (AST) 25 U/L Normal <32 [facility] Comment on above: Performed By: #### C BC, HOCYS ####[address] [address] #### CP ####[address] [place] [address] Bilirubin Ql (U) 0.60 mg/dL Normal 0.3-1.2 [facility] [place] Comment on above: Performed By: #### C BC, HOCYS ####[address] [address] #### CP ####[address] [place] [address] BUN/CRE Ratio 25 High 9-20 [facility] Comment on above: Performed By: #### C BC, HOCYS ####[address] [address] #### CP ####[address] [place] [address] Calcium 9.5 mg/dL Normal 8.6-10.4 [facility] Comment on above: Performed By: #### C BC, HOCYS ####[address] [address] #### CP ####[address] [place] [address] Chloride 103 mmol/L Normal 98-107 [facility] Comment on above: Performed By: #### C BC, HOCYS ####[address] [address] #### CP ####[address] [place] [address] CO2 24 mmol/L Normal 20-31 [facility] Comment on above: Performed By: #### C BC, HOCYS ####[address] [address] #### CP ####[address] [place] [address] Creatinine 0.69 mg/dL Normal 0.50-0.90 [facility] Comment on above: Performed By: #### C BC, HOCYS ####[address] [address] #### CP ####[address] [place] [address] eGFR (non-black) mL/min/{1.73_m2} Normal >60 [facility] Comment on above: Performed By: #### C MARYA, HOCYS ####[address] [address] #### CP ####[address] [place] [address] Glucose mass conc 97 mg/dL Normal 70-99 [facility] Comment on above: Performed By: #### C BC, HOCYS ####[address] [address] #### CP ####[address] [place] [address] Potassium molar conc 4.0 mmol/L Normal 3.7-5.3 [facility] Comment on above: Performed By: #### C BC, HOCYS ####[address] [address] #### CP ####[address] [place] [address] Protein 7.5 g/dL Normal 6.4-8.3 [facility] Comment on above: Performed By: #### C BC, HOCYS ####[address] [address] #### CP ####[address] [place] [address] Sodium 139 mmol/L Normal 135-144 [facility] Comment on above: Performed By: #### C MARYA, HOCYS ####[address] [address] #### CP ####[address] [place] [address] Staging: Normal [facility] Comment on above: Result Comment: Stag e 1: Some kidney damage normal GFRStage 2: Mild kidney damage GFR 60-89Stage 3: Moderate kidney damage GFR 30-59Stage 4: Severe kidney damage GFR 15-29Stage 5: Severe kidney damage GFR <15ESRD - chronic treatment by dialysis or transplantPerformed at [address] [place] [address] Performed By: #### Alexys MALHOTRA, HOCYS ####[address] [address] #### CP ####[address] [place] [address] Urea nitrogen 17 mg/dL Normal 6-20 [facility] Comment on above: Performed By: #### C MARYA, HOCYS ####[address] [address] #### CP ####[address] [place] [address] History and Physicalon 09-12 HIM IP Note OR Nurse Wound Care Normal [facility] Op Noteon 09-12-2017 HIM IP Note OR Nurse Wound Care Normal [facility] Progress Noteon 09-12-2017 HIM IP Note OR Nurse Wound Care Normal [facility] HIM IP Note OR Nurse Wound Care Normal [facility] Progress Noteon 09-05-2017 HIM IP Note OR Nurse Wound Care Normal [facility] HCG Screen, Bloodon 09-05-19 18 HCG Qn Negative Normal NEG [facility] Comment on above: Result Comment: Spec imens with hCG levels near the threshold of the test (25 mIU/mL) may give a negative or indeterminate result. In such cases, another test should be performed with a new specimen in 48-72 hours. If early is suspected clinically in this setting, correlation with quantitative serum b-hCG level is suggested.[facility] has confirmed the use of plasma for this test. This has not been cleared or approved by the U.S. Food and Drug Administration. The FDA has determined that such clearance is not necessary.Performed at [address] [place], [place] [address] ([phone] Performed By: #### H CG ####[address] [place] [address] Op Noteon 09-04-2017 HIM IP Note OR Nurse Wound Care Normal [facility] Progress Noteon 09-04-2017 HIM IP Note OR Nurse Wound Care Normal [facility] HIM IP Note OR Nurse Wound Care Normal [facility] HIM IP Note OR Nurse Wound Care Normal [facility] HIM IP Note OR Nurse Wound Care Normal [facility] IP Note OR Nurse Wound Care Normal [facility] Surgical Pathologyon 018 Surgical Pathology (NOTE)[id number] Y LABORATORIESCONSULTING PATHOLOGISTS CORPORATIONANATOMIC [id number] [place], [place] [id number] Fax: SURGICAL PATHOLOGY CONSULTATIONPatient Name: [facility] [id number] Number: [id number]: 09/04/2017Received: 09/05/2017Reported: 09/09/2017 11:14-- Diagnosis --SKIN AND SOFT TISSUE, BACK, EXCISIONS: - MULTIPLE PORTIONS OF INFLAMED KELOIDS.Home Avila M.D.Electronically Signed Out09/05/2017Cash davies InformationPre-op Diagnosis: PAINFUL CYSTS ON BACK Operative Findings: BACK LESIONSOperation Performed: INCISION AND DRAINAGESource of Specimen1: BACK LESIONS (A)Gross Description RADHA SMITH, BACK LESIONS Fragments of unoriented yu skinand [...] fascicles contain cells with foamy cytoplasm. An [id number] was performed and appears negative in these foci,excluding a granular cell tumor. Controls stain appropriately. Normal [facility] History and Physicalon 09-01 HIM IP Note OR Nurse Wound Care Normal [facility] Progress Noteon 08-20-2017 HIM IP Note OR Nurse Wound Care [facility] HIM IP Note OR Nurse Wound Care [facility] Progress Noteon 08-09-2017 HIM IP Note OR Nurse Wound Care Normal [facility] Vital Signs Date Time Vital Sign Value Performing Clinician Satnam saravia 08-27-2023 11:09-0400 Body height 147.32 cm DO Imer Crowder Work Phone: [facility] 08-27-2023 11:09-0400 Body mass index (BMI) [Ratio] 26.9 kg/m2 DO Imer Crowder Work Phone: [facility] 08-27-2023 11:09-0400 Body weight 58.57 kg DO Imer Crowder Work Phone: [facility] 09-04-2021 15:32-0400 Body height 147.32 cm DO Imer Crowder Work Phone: [facility] 09-04-2021 15:32-0400 Body mass index (BMI) [Ratio] 30.2 kg/m2 DO Imer Crowder Work Phone: [facility] 09-04-2021 15:32-0400 Body weight 65.48 kg DO Imer Crowder Work Phone: [facility] 09-04-2021 15:120400 Body temperature 98.4 [degF] DO Imer Crowder Work Phone: [facility] 09-04-2021 15:120400 Respiratory rate 24 /min DO Imer Crowder Work Phone: [facility] Encounters Encounter Date Encounter Type Care Provider Facility Start: 02-10-2024 End: 02-10-2024 ambulatory IMER CROWDER Facility:[facility] Start: 02-10-2024 End: 02-10-2024 Patient encounter procedure IMER CROWDER [facility] Start: 01-30-2024 End: 01-30-2024 Patient encounter procedure Sadie Meng MD Work Phone: [facility] Comment on above: NO SHOW (Primary Dx) Start: 01-29-2024 End: 01-29-2024 Telephone encounter Sadie Meng MD Work Phone: 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 Comment on above: Appointment Start: 10-30-2023 End: 10-30-2023 ambulatory ANGEL LUQUE Facility:[facility] Start: 10-30-2023 End: 10-30-2023 Patient encounter procedure Sadie Meng MD Work Phone: [facility] Comment on above: Hip dysplasia, conge nital (Primary Dx); Anomaly of chromosome pair 7; Congenital diplegia (HCC) Start: 10-24-2023 End: 12-03-2023 Pre-admission assessment IMER CROWDER [facility] Start: 08-27-2023 End: 08-27-2023 ambulatory DO Imer Crowder Work Phone: [facility] Work Phone: Start: 08-27-2023 End: 08-27-2023 Patient encounter procedure DO Imer Crowder Work Phone: [facility] Work Phone: Start: 09-23-2022 Telephone encounter Juan Manuel Klaudia mills DDS Work Phone: [facility] Comment on above: Dental Start: 11-22-2021 End: 11-22-[address] IMER CROWDER Facility:[facility] Start: 09-24-2021 Office outpatient vi sit 15 minutes Imer Crowder Work Phone: [facility] Work Phone: Start: 09-24-2021 Patient encounter procedure Imer Crowder Work Phone: [facility] Work Phone: Start: 09-05-[address] IMER CROWDER Fac ility:[facility] Start: 09-04-2021 End: 09-04-2021 ambulatory Laura Fortune Facility:[facility] Start: 09-04-2021 End: 09-04-2021 Discharged Recurring DO Imer Crowder Work Phone: [facility] Start: 02-20-2021 Office outpatient vi sit 15 minutes Imer Crowder Work Phone: [facility] Work Phone: Start: 02-07-2021 AUDIT Imer Feliz ng Work Phone: [facility] Work Phone: Start: 09-14-2018 Patient encounter procedure Savanah Pineda Facility:[id number] Start: 08-18-2018 Patient encounter procedure Savanah Pineda Facility:[id number] Start: 02-17-2018 Patient encounter procedure Savanah Pineda Facility:[id number] Start: 09-12-2017 End: 09-13-2017 Ambulatory [facility] Start: 09-04-2017 End: 09-04-2017 Ambulatory [facility] Procedures Date Procedure Procedure Detail Performing Clinician [...] (RZV) Vaccine (1 of 2) [facility] Start: 02-08-2024 Influenza vaccination [facility] Start: 01-30-2024 End: 01-30-[address] [facility] Comment on above: Follow up Hip dysplasia, conge nital (Primary Dx); Anomaly of chromosome pair 7; Congenital diplegia (HCC) Start: 12-08-2023 End: 12-08-2023 Patient encounter procedure 12/08/2023 3:00 PM EDT Appointment Radiology [address] [place] [address] XR SCOLIOSIS AND XR HIP (NEW ORDERS PENDING) Radiology Comment on above: XR SCOLIOSIS AND XR HIP (NEW ORDERS PENDING) Start: 08-27-2023 Patient referral [facility] Work Phone: Start: 06-09-2023 Behavioral Health Screening Behavioral Health Screening [facility] Start: 02-07-2023 Covid-19 Vaccine ( season) Covid-19 Vaccine ( season) [facility] Start: 11-01-2022 End: 11-01-2022 Admission to same day surgery center 11/01/2022 Surgery Ambulatory Surgery Lizbeth RomeroYordy jose, DDS [address] [place] [address] [facility] Comment on above: DENTAL RESTORATIONS Start: 11-01-2022 End: 11-01-2022 DENTAL RESTORATIONS DENTAL RESTORATIONS Routine scheduled Caries 11/01/2022 11:28 AM EDT [facility] Start: 11-01-2022 Subsequent hospital visit by physician 11/01/2022 Hospital Encounter Ambulatory Surgery Lizbeth Yordy Urbina, DDS [address] [place] [address] [facility] Start: 10-11-2022 End: 10-11-2022 Patient encounter procedure 10/11/2022 Office Visit Pediatric Comp Care Ayad Heck MD [address] [place] [address] [facility] Start: 02-20-2021 FUV, Provider: Savanah Pineda, Status: Pen, Time: 1:45 PM FUV, Provider: Savanah Pineda, Status: Pen, Time: 1:45 PM [facility] Work Phone: Start: 2017 Screening for malign ant neoplasm of cervix [facility] Start: 2014 Anxiety Screening Anxiety Screening [facility] Start: 2014 Depression Screening Depression Scre ening [facility] Start: 2014 Hepatitis C screening [facility] Start: 2014 HIV screening HIV Screening [facility] Start: 2014 Tetanus + diphtheria + acellular pertussis vaccine (product) Tdap Booster [facility] Start: 03-16-2014 Urine microalbumin profile DTaP,Tdap,Td Vaccine (6 - Tdap) [facility] Start: 12-25-2011 HIV screening HIV Test [facility] Start: 12-25-2011 HPV Vaccine (1 - 3-d ose series) HPV Vaccine (1 - 3-dose series) [facility] Start: 2010 Peds To Adult Transi tion Annual Assessment Peds To Adult Transition Annual Assessment [facility] Start: 2008 Peds To Adult Transi tion Initial Discussion Peds To Adult Transition Initial Discussion [facility] Start: 12-25-2007 Vaccination for cabrera n papillomavirus Human Papilloma (HPV) Vaccine (1 - 2-dose series) [facility] Start: 06-26-1997 COVID-19 Vaccine (#1) COVID-19 Vacci ne (#1) [facility] Patient referral [facility] Work Phone: End: 11-28-2024 XR HIP BILATERAL 5V PEL/AP/LAT EACH HIP XR HIP BILATERAL 5V PEL/AP/LAT EACH HIP Radiology Routine Hip dysplasia, congenital 1 Occurrences starting 10/30/2023 until 11/28/2024 [facility] Work Phone: Comment on above: 1 Occurrences starti ng 10/30/2023 until 11/28/2024 End: 12-11-2024 XR Thoracic and lumbar spine Views for scoliosis W standing [facility] Work Phone: Comment on above: 1 Occurrences starti ng 11/13/2023 until 12/11/2024 1 Occurrences starti ng 01/29/2024 until 12/11/2024 Immunizations Immunization Date Immunization Notes Care Provider [facility] 04-04-2021 influenza, injectabl e, quadrivalent, preservative free Juan Manuel Aleman DDS Work Phone: [facility] 04-04-2021 influenza virus vacc ine, unspecified formulation Sadie Meng MD Work Phone: [facility] 03-15-2014 TD(adult) unspecifie d formulation Juan Manuel Aleman DDS Work Phone: [facility] 09-21-2010 hepatitis A vaccine, pediatric/adolescent dosage, 2 dose schedule [facility] Work Phone: [facility] 09-25-2009 hepatitis A vaccine, pediatric/adolescent dosage, 2 dose schedule [facility] Work Phone: [facility] 09-25-2009 meningococcal polysaccharide vaccine (MPSV4) [facility] Work [facility]: [facility] 04-22-2002 diphtheria and tetan us toxoids, adsorbed for pediatric use [facility] Work Phone: [facility] 04-22-2002 measles, mumps and rubella virus vaccine [facility] Work Phone: [facility] 04-22-2002 poliovirus vaccine, inactivated [facility] Work Phone: [facility] 04-22-2002 varicella virus vaccine [facility] Work Phone: [facility] 01-14-2002 diphtheria and tetan us toxoids, adsorbed for pediatric use [facility] [employer] Work Phone: [facility] 01-14-2002 measles, mumps and rubella virus vaccine [facility] Work Phone: [facility] 01-14-2002 poliovirus vaccine, inactivated [facility] Work Phone: [facility] 08-08-1998 diphtheria and tetan us toxoids, adsorbed for pediatric use [facility] [employer] Work Phone: [facility] 08-08-1998 haemophilus influenz ae type b vaccine, conjugate unspecified formulation [facility] Work Phone: [facility] 08-08-1998 hepatitis B vaccine, pediatric or pediatric/adolescent dosage Juan Manuel Al-Mashni DDS Work Phone: [facility] 08-08-1998 poliovirus vaccine, inactivated Juan Manuel Al-Mashni DDS Work Phone: [facility] 06-30-1998 measles, mumps and rubella virus vaccine Juan Manuel Al-Mashni DDS Work Phone: [facility] 09-01-1997 diphtheria and tetan us toxoids, adsorbed for pediatric use Juan Manuel Al-Mashni DDS Work Phone: [facility] 09-01-1997 haemophilus influenz ae type b vaccine, conjugate unspecified formulation Juan Manuel Al-Mashni DDS Work Phone: [facility] 06-30-1997 diphtheria and tetan us toxoids, adsorbed for pediatric use Juan Manuel Al-Mashni DDS Work Phone: [facility] 06-30-1997 poliovirus vaccine, inactivated Juan Manuel Al-Mashni DDS Work Phone: [facility] 03-25-1997 diphtheria, tetanus toxoids and acellular pertussis vaccine, unspecified formulation Juan Manuel Al-Mashni DDS Work Phone: [facility] 03-25-1997 haemophilus influenz ae type b vaccine, conjugate unspecified formulation Juan Manuel Al-Mashni DDS Work Phone: [facility] 02-23-1997 hepatitis B vaccine, pediatric or pediatric/adolescent dosage Juan Manuel Al-Mashni DDS Work Phone: [facility] 02-23-1997 poliovirus vaccine, inactivated Juan Manuel Al-Mashni DDS Work Phone: [facility] 1996 hepatitis B vaccine, pediatric or pediatric/adolescent dosage Juan Manuel Al-Mashni DDS Work Phone: [facility] Payers Date Payer Category Payer Self-pay [id number] 2013 Medicaid [id number] 1996 Unknown [id number] 2.16. [id number] 1996 Unknown [id number] 2.16. [id number] 1996 Unknown [id number] 2.16. [id number] 1996 Unknown [id number] 2.16.84 [id number] 1996 Unknown [id number] 2.16.84 [id number] 1996 Unknown [id number] 2.16.8 [id number] 1959 Medicaid [id number] Unknown MEDICAID Unknown [id number] Unknown [id number] 2.16.8 [id number] Social History Date Type Detail Facility Start: 05-16-2020 End: 10-30-2023 Never a smoker Never a smoker [facility] Work Phone: Start: 1995 Sex Assigned At Female F [facility] Tobacco smoking status [facility] Tobacco smoking consumption unknown [facility] Start: 1996 Sex Assigned At Not on file [facility] Start: 10-30-2023 Tobacco smoking status MSIS Never smoked tobacco [facility] Start: 10-30-2023 Tobacco use and exposure Smokeless tobacco non-user [facility] Start: 10-30-2023 Alcohol intake Lifetime non-d nj (finding) [facility] Start: 05-16-2020 End: 10-30-2023 Tobacco use panel [place] National Score (1-100), lower number is lower risk Not on file [facility] Tobacco smoking status No Smoking Status Entered [facility] Clinical Notes 09-25-2020 to 01-30-2024 Sadie Meng MD - 01/30/2024 12:19 PM EDTTelephone Encounter - Rosette Briseno RN - 01/29/2024 3:01 PM EDTTelephone Encounter - Rosette Briseno RN - 01/29/2024 3:01 PM EDT Note Date & Type Note Facility 01-30-2024 Note HNO ID: [id number] Author: SADIE MENG MD Service: ? Author Type: Physician Type: Progress Notes Filed: 01/30/2024 12:20 Note Text: The patient was a no show. [facility] 01-30-2024 History of Present illness Narrative The patient was a no show. documented in this encounter [facility] 01-29-2024 Telephone encounter Note Images from the original note were not included. Reviewed with Viji Ramachandran MD McKee, Keith, MD; Elizabeth Reid MD Cc: Noel Weinstein MD; Rosette Briseno RN Hi Keith, I'm covering Elizabeth's inbox while she is out. I have never had a patient get sedation for Xrays only. Usually if they get sedation it is for other things and they throw the Xray or MRI on at that time for ease/decreased visits. Viji De La Torre [facility] Work Phone: 01-29-2024 Miscellaneous Notes Images from the original note were not included. Reviewed with Viji Ramachandran MD McKee, Keith, MD; Elizabeth Reid MD Cc: Noel Weinstein MD; Rosette Briseno RN Hi Keith, I'm covering Elizabeth's inbox while she is out. I have never had a patient get sedation for Xrays only. Usually if they get sedation it is for other things and they throw the Xray or MRI on at that time for ease/decreased visits. Viji De La Torre Kacy Call Name of caller : Chelo Relationship to patient: Self Return call phone number : Central scheduling - Lisbet Deloris is coremaking supervisor if needed to speak to. They will look out for order changes Reason for call : Other : Brief description of concern : Scheduling called to advised that they do not put patient under anesthesia for X rays only CT or MRI. Order will need to be changed. Scheduling did speak with anesthesia and Xray techs and they advised this is not possible they can not do anesthesia for X ray. documented in this encounter [facility] 01-29-2024 Telephone encounter Note Kacy Call Name of caller : Chelo Relationship to patient: Self Return call phone number : Central scheduling - Lisbet Chit is coremaking supervisor if needed to speak to. They will look out for order changes Reason for call : Other : Brief description of concern : Scheduling called to advised that they do not put patient under anesthesia for X rays only CT or MRI. Order will need to be changed. Scheduling did speak with anesthesia and Xray techs and they advised this is not possible they can not do anesthesia for X ray. [facility] 01-29-2024 Miscellaneous Notes I reviewed orders and agree. Sadie Meng MD Called radiology Talked with Ray He again sent message to safety committee to contact patient regarding anesthesia for xrays to be scheduled Scoliosis and bilat hip under anesthesia Need new order for scoliosis to only say anesthesia - pending order sent to Dr Meng ----- Message from Sadie Meng MD sent at 01/29/2024 7:27 AM EDT ----- Regarding: X-rays with sedation Jacquelin, I am seeing Radha tomorrow. It doesn't look like anything is scheduled for x-rays with sedation. Where are we with this? JULIETTE De La Torre documented in this encounter [facility] 01-29-2024 Telephone encounter Note I reviewed orders and agree. Sadie Meng MD [facility] 01-29-2024 Telephone encounter Note Called radiology Talked with Ray He again sent message to safety committee to contact patient regarding anesthesia for xrays to be scheduled Scoliosis and bilat hip under anesthesia Need new order for scoliosis to only say anesthesia - pending order sent to Dr Meng [facility] 01-29-2024 Telephone encounter Note ----- Message from Sadie Meng MD sent at 01/29/2024 7:27 AM EDT ----- Regarding: X-rays with sedation Jacquelin, I am seeing Radha tomorrow. It doesn't look like anything is scheduled for x-rays with sedation. Where are we with this? JULIETTE De La Torre [facility] 11-13-2023 Telephone encounter Note Called radiology, talked with Marychuy Will forward to safety committee She states it may take 10-14 days to receive a call to schedule Will monitor weekly to make sure gets scheduled [facility] Work Phone: 11-13-2023 Miscellaneous Notes Called radiology, talked with Marychuy Will forward to safety committee She states it may take 10-14 days to receive a call to schedule Will monitor weekly to make sure gets scheduled SPECIALTY CARE COORDINATION QUICK NOTE Called MOMHyun Patient identified by name and date of : Yes Reviewed request for xray with sedation She understands and wants to proceed with sedation 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 Understands additional risk with sedation Reviewed may need preop appt with anesthesia for this Mom will bring patient to this appt OK with coming to [facility] Avoid for scheduling She will schedule ORTO appt after imaging is scheduled Mom is asking if patient can also have scoliosis films done at the same time Has history of scoliosis; wore brace but has not had any follow up since seen by Dr Stevenson Will check with Dr Meng to see if OK to add on scoliosis films - last xray done 2018 Will call her back once this is arranged/scheduled she verbalized understanding and agrees with plan Called radiology to confirm an xray can be done with anesthesia No specific order for this; will need to have in comments: patient requires anesthesia for x-rays. Imaging will need to send to Safety Team for review before this can be scheduled Images from the original note were not included. Called left message to call office Xray and ortho appts Lisbet Barboza PA-C McKee, Keith, MD; Rosette Briseno RN Hi, My only suggestion would be to try zanax 0.5mg (or whatever you're comfortable with) one hour before the imaging and just see if the patient can be calm enough to withstand the xray for the few minutes it will take to get the pictures and have them done at a CC facility. [facility] Previous Messages ----- Message ----- From: Sadie Meng MD Sent: 11/05/2023 12:47 PM EDT To: Rosetet rBiseno RN; BRISEIDA Villalpando, She most likely will need anesthesia. I had a hard time examining her in the office. Also, probably better if x-rays are done at [facility] facility if possible so that they may be readily accessible in [facility]. Any suggestions? 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 Understands additional risk with sedation Reviewed may need preop appt with anesthesia for this Mom will bring patient to this appt OK with coming to [facility] Avoid for scheduling She will schedule ORTO appt after imaging is scheduled Mom is asking if patient can also have scoliosis films done at the same time Has history of scoliosis; wore brace but has not had any follow up since seen by Dr Stevenson Will check with Dr Meng to see if OK to add on scoliosis films - last xray done 2018 Will call her back once this is arranged/scheduled she verbalized understanding and agrees with plan Called radiology to confirm an xray can be done with anesthesia No specific order for this; will need to have in comments: patient requires anesthesia for x-rays. Imaging will need to send to Safety Team for review before this can be scheduled [facility] 11-11-2023 Telephone encounter Note Images from the original note were not included. Called left message to call office Xray and ortho appts Lisbet Barboza, Sadie Strickland MD; Rosette Briseno RN Hi, My only suggestion would be to try zanax 0.5mg (or whatever you're comfortable with) one hour before the imaging and just see if the patient can be calm enough to withstand the xray for the few minutes it will take to get the pictures and have them done at a facility. [facility] Previous Messages ----- Message ----- From: Sadie Meng MD Sent: 11/05/2023 12:47 PM EDT To: Rosette Briseno RN; BRISEIDA Villalpando, She most likely will need anesthesia. I had a hard time examining her in the office. Also, probably better if x-rays are done at [facility] facility if possible so that they may be readily accessible in [facility]. Any suggestions? Thanks, KM [facility] 10-30-2023 Note HNO ID: [id number] Author: SADIE MENG MD Service: ? Author Type: Physician Type: Progress Notes Filed: 10/30/2023 15:23 Note Text: REFERRAL SOURCE: Angel Luque [address] [id number] FOLLOWED BY: Charline Nicholson MD, MD REASON FOR CONSULTATION: rehabilitation consult. PRINCIPAL NEUROLOGIC DIAGNOSIS: Chromosome 7 abnormality (inverted duplication) HISTORY OF ILLNESS: Date of Onset: BRIEF NARRATIVE DESCRIBING HISTORY: This 27 year old right handed female was referred by Angel Luque DO for a spasticity consult. The patient was accompanied by her parents. Medical records from [facility] and Care Everywhere were reviewed. 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 She is here today at the request of orthopedics. She has bilateral hip dysplasia and was referred to [facility] for further evaluation. Parents are unable to determine if there is pain. She is ambulatory independently and mother notes that walking has worsened over the last 6 months. She has a history of hip surgery at [facility] (approximately 1997) but mother is uncertain of which side. Mother notes that she has stiffness in her legs. She does not like taking medications but was on oral baclofen several years ago but she is unable to determine efficacy. She has had multiple surgeries including achilles tendonlengthening and toe flexor tendon releases. She has physical therapy. She resides at [facility]. Symptoms/Functional Limitations Related to Spasticity: Stiffness: She has stiffness in her legs per mother Spasms: Unable to determine Spasticity interferes with sleep: Unable to determine Spasticity interferes with function: Unable to determine SPASM SCALE: No spasm Pain related to the purpose of the visit: Unable to determine Patient Entered Data PROMIS No data to display Spasticity NRS No data to display Spasm Scale No data to display Global Impression of Change No data to display Treatments for Spasticity and Results of Treatments: Stretching/exercise: She is in physical therapy Oral medications: baclofen previously, unable to determine efficacy Botulinum toxin injections: No Intrathecal baclofen therapy: No Other: No Evolution of disability: Gait disturbance since , ambulates independently but has a walker. Current functional status: She is independent in feeding (set up). She requires assistance with dressing and bathing. She requires assistance with stairs. She requires assistance getting in and out of the shower and uses a shower chair. She requires assistance with transfers. She requires assistance with grooming. Mood: Anxiety Memory: MR but mother notes that memory is good Bowel: Incontinence Bladder: Incontinence Fatigue: No issues Current functional status: Incapacity Status Scale Stair Climbin Ambulation: 3 Toilet/Chair/Bed Transfer: 3 Bowel Function: 2 Bladder Function: 2 Bathin Dressin Groomin Feedin Vision: Unable to determine Speech and Hearin Medical Problems: 1 Mood and Thought Disturbance: 2 Mentation: 3 Fatigability: 0 Sexual Function: Not asked Total score: 33 Skin: Bunions on feet Nutritional status: appetite is good, weight is stable, swallowing with no issues per mother, has dysphagia per facility with mechanical soft diet and thin liquids Driving issues: NA Safety concerns regarding living situations and safety at home: No, she resides at [facility] in [place], [place] Risk of falls: Yes, but no recent falls Review of Systems Constitutional: Negative. Skin: Negative. HENT: Positive for trouble swallowing. Musculoskeletal: Positive for muscle weakness. Respiratory: Negative. Cardiovascular: Negative. Gastrointestinal: Incontinence Endocrine: Negative. Genitourinary: Positive for incontinence. Hematologic/Lymphatic: Negative. Psychiatric: Positive for nervous/anxious. All other systems reviewed and are negative. Review of Diagnostic Studies: No recent studies Labs Reviewed: None Pertinent History reviewed. No pertinent past medical history. History reviewed. No pertinent surgical history. Social History Tobacco Use Smoking status: Never Smokeless tobacco: Never Substance Use Topics Alcohol use: Never Drug use: Never History reviewed. No pertinent family history. PHYSICAL EXAMINATION: Musculoskeletal: Full passive range of motion is noted in all extremities (has contractures in bilateral ankle plantar flexors). Cognitive/Behavioral: The patient was awake but not oriented with poor language, memory, and praxis. Formal neuropsychological testing was not performed today. The patient did not exhibit signs of pathological anxiety or (more content not included)... [facility] 10-30-2023 History of Present illness Narrative Images from the original note were not included. REFERRAL SOURCE: Angel Luque [address] [id number] FOLLOWED BY: Charline Nicholson MD, MD REASON FOR CONSULTATION: rehabilitation consult. PRINCIPAL NEUROLOGIC DIAGNOSIS: Chromosome 7 abnormality (inverted duplication) HISTORY OF ILLNESS: Date of Onset: BRIEF NARRATIVE DESCRIBING HISTORY: This 27 year old right handed female was referred by Angel Luque DO for a spasticity consult. The patient was accompanied by her parents. Medical records from [facility] and Care Everywhere were reviewed. 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 She is here today at the request of orthopedics. She has bilateral hip dysplasia and was referred to [facility] for further evaluation. Parents are unable to determine if there is pain. She is ambulatory independently and mother notes that walking has worsened over the last 6 months. She has a history of hip surgery at [facility] (approximately 1997) but mother is uncertain of which side. Mother notes that she has stiffness in her legs. She does not like taking medications but was on oral baclofen several years ago but she is unable to determine efficacy. She has had multiple surgeries including achilles tendon lengthening and toe flexor tendon releases. She has physical therapy. She resides at [facility]. Symptoms/Functional Limitations Related to Spasticity: Stiffness: She has stiffness in her legs per mother Spasms: Unable to determine Spasticity interferes with sleep: Unable to determine Spasticity interferes with function: Unable to determine SPASM SCALE: No spasm Pain related to the purpose of the visit: Unable to determine Patient Entered Data PROMIS No data to display Spasticity NRS No data to display Spasm Scale No data to display Global Impression of Change No data to display Treatments for Spasticity and Results of Treatments: Stretching/exercise: She is in physical therapy Oral medications: baclofen previously, unable to determine efficacy Botulinum toxin injections: No Intrathecal baclofen therapy: No Other: No Evolution of disability: Gait disturbance since , ambulates independently but has a walker. Current functional status: She is independent in feeding (set up). She requires assistance with dressing and bathing. She requires assistance with stairs. She requires assistance getting in and out of the shower and uses a shower chair. She requires assistance with transfers. She requires assistance with grooming. Mood: Anxiety Memory: MR but mother notes that memory is good Bowel: Incontinence Bladder: Incontinence Fatigue: No issues Current functional status: Incapacity Status Scale Stair Climbin Ambulation: 3 Toilet/Chair/Bed Transfer: 3 Bowel Function: 2 Bladder Function: 2 Bathin Dressin Groomin Feedin Vision: Unable to determine Speech and Hearin Medical Problems: 1 Mood and Thought Disturbance: 2 Mentation: 3 Fatigability: 0 Sexual Function: Not asked Total score: 33 Skin: Bunions on feet Nutritional status: appetite is good, weight is stable, swallowing with no issues per mother, has dysphagia per facility with mechanical soft diet and thin liquids Driving issues: NA Safety concerns regarding living situations and safety at home: No, she resides at [facility] in [place], [place] Risk of falls: Yes, but no recent falls Review of Systems Constitutional: Negative. Skin: Negative. HENT: Positive for trouble swallowing. Musculoskeletal: Positive for muscle weakness. Respiratory: Negative. Cardiovascular: Negative. Gastrointestinal: Incontinence Endocrine: Negative. Genitourinary: Positive for incontinence. Hematologic/Lymphatic: Negative. Psychiatric: Positive for nervous/anxious. All other systems reviewed and are negative. Review of Diagnostic Studies: No recent studies Labs Reviewed: None Pertinent History reviewed. No pertinent past medical history. History reviewed. No pertinent surgical history. Social History Tobacco Use Smoking status: Never Smokeless tobacco: Never Substance Use Topics Alcohol use: Never Drug use: Never History reviewed. No pertinent family history. PHYSICAL EXAMINATION: Musculoskeletal: Full passive range of motion is noted in all extremities (has contractures in bilateral ankle plantar flexors). Cognitive/Behavioral: The patient was awake but not oriented with poor language, memory, and praxis. Formal neuropsychological testing was not performed today. The patient did not exhibit signs of pathological anxiety or depression during the interview and examination. Cranial Nerves: Unable to assess Strength: Unable to assess. Spasticity Right Left Shoulder 0 0 Elbow flexors 0 0 Elbow extensors 0 0 Wrist flexors 0 0 Wrist extensors 0 0 Finger flexors 0 0 Finger extensors 0 0 Hip adductors 0 0 Knee extensors 0. 0 Knee flexors 0 0 Plantarflexors 3 3 Modified Patricia Scale 0 - No increase in tone 1 - Slight increase in tone (catch and release at end of ROM) 1+ - Slight increase in tone, manifested by a catch, followed by minimal resistance throughout remainder (less than half of ROM) 2 - Marked increase in tone through most of the ROM, but affected part(s) easily moved 3 - Considerable increase in tone; passive movement difficult 4 - Affected part(s) rigid in flexion or extension Spasms observed: RUE: no right upper extremity spasms LUE: no left upper extremity spasms RLE: no right lower extremity spasms LLE: no left lower extremity spasms Timed 25 foot walk: N/A [facility] TIMED 25 FOOT WALK - ASSISTANCE REQUIRED: 1 person. Ambulation Index Score: 4 - Unilateral support and 25 ft <20 sec OR no support and 25 ft > 20 sec Gait: Standard gait was crouched with wide base with shuffling. Assistance of 1 person was required for safe ambulation. Stressed gait was not tested. 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 Local orthopedics referred her to [facility] for further evaluation and treatment of hip dysplasia. Spasticity and muscle contractures are noted in bilateral ankle plantar flexors. She has full range of motion of the hips without pain but she requires x-rays and evaluation by orthopedics for her hip dysplasia. She will need sedation in order to obtain x-rays. There are bunions on her feet (left greater than right) that should be evaluated by podiatry/orthopedics once we have had evaluation of her hips. She is to continue physical therapy locally. She will follow up in 3 months. MS SAMANIEGO PRE AUTH Educational materials provided: No Checklist for botulinum toxin or intrathecal baclofen therapy Severe spinal deformity: yes Scoliosis and congenital fusion History of trauma to the spine: no History of spinal surgery: no History of seizures: no Pacemaker: no Anticoagulation: no Bleeding disorder: no Ability to provide consent: no Mother is legal guardian Allergy to lidocaine: Unknown Allergy to betadine: no Transportation problems: no Other: no PLAN: 1. Oral antispasticity medications: No. 2. X-rays of hips (requires sedation). 3. Referral to orthopedics for evaluation of hip dysplasia. 4. Consider referral to podiatry/orthopedics for bilateral bunions after hips have been evaluated. 5. Continue physical therapy locally. 6. Please fax note to Angel Luque DO ( ). Time spent with patient: 60 minutes. More than 50% of the face to face time was dedicated to education and counseling regarding treatment options for spasticity. Sadie Meng MD documented in this encounter [facility] 09-23-2022 Telephone encounter Note Reason for Escalation: Oneyda from [employer] calling in. She wanted to know more information about surgery date, time, and location. It looks like PSE has not been completed just yet. She wanted to speak to the OR breakfast hostess directly if possible. Oneyda can be reached at [phone]. E-mail sent to [facility] 09/23/22 [facility] 09-23-2022 Miscellaneous Notes Reason for Escalation: Oneyda from [employer] calling in. She wanted to know more information about surgery date, time, and location. It looks like PSE has not been completed just yet. She wanted to speak to the OR breakfast hostess directly if possible. Oneyda can be reached at [phone]. E-mail sent to [facility] 09/23/22 documented in this encounter [facility] 09-30-2020 History of Present illness Narrative Asha [...] [facility] and is with her caregiver today. She [...] toe surgeries in the past with Dr. Stevenson at [facility]. There has been no concern on the part of the staff at her facility that she has had any pain since we last saw her. [employer] Work Phone: 09-25-2020 History of Present illness Narrative Asha [...] [facility] and is with her caregiver today. She [...] toe surgeries in the past with Dr. Stevenson at [facility]. There has been no concern on the part of the staff at her facility that she has had any pain since we last saw her. [employer] Work Phone: Evaluation + Plan note No data available for this section [facility] Evaluation note Diagnosis Onset Date Intact skin acute [facility] Work Phone: Evaluation note* Diagnosis Onset Date Resolution Status Congenital dysplasia of left hip acute Osteoarthritis of left hip a [facility] Work Phone: Evaluation note* Diagnosis Hip dysplasia, congenital- Primary Other congenital deformity of hip (joint) Anomaly of chromosome pair 7 Other conditions due to chromosome anomalies Congenital diplegia (HCC) Congenital diplegia [facility] Anomaly of chromosome pair 7- Primary Other conditions due to chromosome anomalies Scoliosis, unspecified scoliosis type, unspecified spinal region [facility] Anomaly of chromosome pair 7 Other conditions due to chromosome anomalies Scoliosis, unspecified scoliosis type, unspecified spinal region Hip dysplasia, congenital- Primary Other congenital deformity of hip (joint) Anomaly of chromosome pair 7 Other conditions due to chromosome anomalies Congenital diplegia (HCC) Congenital diplegia [facility] NO SHOW- Primary [facility] NarrativeAsha is a 25 year old female who presents today for follow up. She was recently diagnosed with a foot fungus and hallux valgus of both feet. She is with her caregiver and he does not believe that she is in any pain. She is ambulatory and uses the wheelchair for community use. She has a history ofhip dysplasia, inverted duplication of chromosome 7, spasticity, global developmental delay, and congenital fusion of several vertebrae. She has been living in [facility] for 5 years. Asha does not currently wear any braces or orthotics. She does not take any medications for spasticity.[facility] Work Phone: Hospital Discharge instructions No data available for this section [facility] No data available for this section [facility] Diagnostic Procedure Only (Routine) - Pending Review Specialty Diagnoses / Procedures Referred By Ralph ramirez Referred To Contact XR IMAGING Diagnoses Hip dysplasia, congenital Procedures XR HIP BILATERAL 5V PEL/AP/LAT EACH HIP RADEX HIPS BILATERAL WITH PELVIS MINIMUM 5 VIEWS Sadie Meng MD [address] [place] [address] [place] [id number] Referral ID Status Reason Start Date Expiration Date Visits Requested Visits Authorized [id number] Pending Review Auto-Generat ed Referral 10/30/2023 11/28/2024 1 1 * Consult, Test, Treat (Routine) - Authorized Specialty Diagnoses / Procedures Referred By Contac t Referred To Contact Orthopedics Diagnoses Hip dysplasia, congenital Procedures CONSULT TO ORTHOPAEDICS OFFICE/OUTPATIENT NEW HIGH MDM 60 MINUTES Sadie Meng MD [address] [phone] Referral ID Status Reason Start Date Expiration Date Visits Requested Visits Authorized [id number] Authorized PCP Requested Referral 10/30/2023 10/29/2024 1 1 [facility] for referral (narrative)* Diagnostic Procedure Only (Routine) - Authorized Specialty Diagnoses / Procedures Referred By Contac t Referred To Contact XR IMAGING Diagnoses Anomaly of chromosome pair 7 Scoliosis, unspecified scoliosis type, unspecified spinal region Procedures XR SCOLIOSIS PA STAND/LAT 2V RADEX ENTIR THRC LMBR CRV SAC SPI W/SKULL 2/3 Sadie Meng MD [address] [place] [address] [facility] [place] [address] Referral ID Status Reason Start Date Expiration Date Visits Requested Visits Authorized [id number] Authorized Auto-Generat ed Referral 11/13/2023 12/11/2024 1 1 [facility] for referral (narrative)* Diagnostic Procedure Only (Routine) - New Request Specialty Diagnoses / Procedures Referred By Contac t Referred To Contact XR IMAGING Diagnoses Anomaly of chromosome pair 7 Scoliosis, unspecified scoliosis type, unspecified spinal region Procedures XR SCOLIOSIS PA STAND/LAT 2V XR SCOLIOSIS PA STAND/LAT 2V RADEX ENTIR THRC LMBR CRV SAC SPI W/SKULL 2/3 Sadie Dias MD [address] [phone] [facility] [place] [address] Referral ID Status Reason Start Date Expiration Date Visits Requested Visits Authorized [id number] New Request Auto-Generat ed Referral 11/13/2023 12/11/2024 1 1 [facility] Summary Purpose Family History No Family History [...] Date/ Time Advance Directives No August 30 9:36am Chief Complaint and Reason for Visit [...] section and content) DATE CREATED AUTHOR 11/27/2017 [facility] [employer] DATE CREATED AUTHOR AUTHOR'S ORGANIZ ATION 03/27/2018 [facility] DATE CREATED AUTHOR AUTHOR'S ORGANIZ ATION 09/15/2018 [facility] DATE CREATED AUTHOR AUTHOR'S ORGANIZ ATION 10/01/2021 [employer] DATE CREATED AUTHOR AUTHOR'S ORGANIZ ATION 11/24/2021 [facility] DATE CREATED AUTHOR AUTHOR'S ORGANIZ ATION 10/14/2022 [facility] DATE CREATED AUTHOR AUTHOR'S ORGANIZ ATION 09/17/2023 [facility] DATE CREATED AUTHOR AUTHOR'S ORGANIZ ATION 01/31/2024 [facility] DATE CREATED AUTHOR AUTHOR'S ORGANIZ ATION 02/20/2024 [facility] Care Teams (unrecognized sec tion and content) Team Status: Inactive Member Role Status Dates Imer Crowder DO Primary Care Provider Active Laura Fortune APRN Attending Provider Active Team Status: Active Member Role Status Dates Imer Crowder DO Primary Care Provider Active Team Status: Inactive Member Role Status Dates Imer Crowder DO Primary Care Provider Active Start: August 27, 2023 End: August 27, 2023 Angel Luque DO Attending Provider Active S tart: August 27, 2023 End: August 27, 2023 Team Status: Active Member Role Status Dates Imer Crowder DO Primary Care Provider Active Start: August 27, 2023 Angel Luque DO Attending Provider Active S tart: August 27, 2023 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 Relationship Specialty Start Date End Date Gustavo Nicholson MD [address] [place] [address] PCP - General 09/17/00 Angel Luque DO [address] [place] [address] Referring Orthopedics 09/05/23 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 Relationship Specialty Start Date End Date Gustavo Nicholson MD [address] [place] [address] PCP - General 09/17/00 Angel Luque DO [address] [place] [address] Referring Orthopedics 09/05/23 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 Relationship Specialty Start Date End Date Gustavo Nicholson MD [address] [place] [address] PCP - General 09/17/00 Angel Luque DO [address] [place] [address] Referring Orthopedics 09/05/23 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 Relationship Specialty Start Date End Date Gustavo Nicholson MD [address] [place] [address] PCP - General 09/17/00 Angel Luque DO [address] [place] [address] Referring Orthopedics 09/05/23 Goals (unrecognized section and content) Goals may be documented in a n alternate sectionGoals may be documented in an alternate sectionGoals may be documented in an alternate section No data available for this section No data available for this section Reason for Visit (unrecogniz ed section and content) Reason Onset Date Comments Dental 09/23/2022 Reason Comments Spasticity Reason Comments Appointment Reason Comments Appointment Reason Comments Orders Reason Comments No Show Source Comments (unrecognize d section and content) In the event this informatio n is protected by the Federal Confidentiality of Alcohol and Drug Abuse Patient Records regulations: The Federal rules restrict any use of the information to criminally investigate or prosecute any alcohol or drug abuse patient.[facility] the event this information is protected by the Federal Confidentiality of Alcohol and Drug Abuse Patient Records regulations: The Federal rules restrict any use of the information to criminally investigate or prosecute any alcohol or drug abuse patient.[facility] the event this information is protected by the Federal Confidentiality of Alcohol and Drug Abuse Patient Records regulations: The Federal rules restrict any use of the information to criminally investigate or prosecute any alcohol or drug abuse patient.[facility] the event this information is protected by the Federal Confidentiality of Alcohol and Drug Abuse Patient Records regulations: The Federal rules restrict any use of the information to criminally investigate or prosecute any alcohol or drug abuse patient.[facility]In the event this information is protected by the Federal Confidentiality of Alcohol and Drug Abuse Patient Records regulations: The Federal rules restrict any use of the information to criminally investigate or prosecute any alcohol or drug abuse patient.[facility] the event this information is protected by the Federal Confidentiality of Alcohol and Drug Abuse Patient Records regulations: The Federal rules restrict any use of the information to criminally investigate or prosecute any alcohol or drug abuse patient.[facility] FOR RECORDS PERTAINING TO PATIENTS WHO ARE [...] BE BASED ON THE PRIMARY CLINICAL RECORDS. [facility] [employer] [facility]. provides no warranty or guarantee of the accuracy or completeness of information in this document.
[2024-03-03 05:08] LABS: HBsAg Screen Negative (Negative); HCV Ab Non Reactive (Non Reactive); Hep A Ab, IgM Negative (Negative); Hep B Core Ab, IgM Negative (Negative)
== END 2024-03-02 06:26 | disposition home or self-care (01) ==
LOC: LAB 06:25
PROVIDERS: PCP Family Medicine; Visit Provider Family Medicine
DX: Z04.41 Encounter for examination and observation following alleged adult rape (principal)
CPT/HCPCS: 36415; 80074

== ENCOUNTER 2024-08-17 06:31 | Outpatient (OUT) | payer MEDICAID, SELFPAY ==
--- OUTSIDE RECORDS SUMMARY | 2024-08-17 06:34 | XMS_ITS | CCD ---
Author Organization [facility] Care Team Providers Care Dog Warden Name Role Phone NAZEMI, JOSHUA I Unavailable Unavailable NAZEMI, JOSHUA I Unavailable Unavailable CROWDER, IMER Unavailable Unavailable NAZEMI, JOSHUA I Unavailable Unavailable NAZEMI, JOSHUA I Unavailable Unavailable CROWDER, IMER Unavailable Unavailable NAZEMI, JOSHUA I Unavailable Unavailable CROWDER, IMER Unavailable Unavailable CROWDER, IMER Unavailable Unavailable Edwin, Savanah Fabian Attending Unavaila ble Crowder, Imer Reese Referring Unavailab le Crowder, Imer Reese Primary Care Unavailab le Clarington, Savanah Fabian Attending Unavaila ble Crowder, Imer [...] Care Provider DO Angel Luque Attending Provider [phone] Laura Fortune Attending Unavailable Laura Fortune Admitting Unavailable CrowderImer Primary Care Unavailable Xiomara ECHOLS, Gustavo [place] Primary Care Provider Angel Luque DO Unavailable IMER CROWDER Primary Care Physician [phone] ANGEL LUQUE Referring Unavailable XIOMARA GRAEMEKIMBERLEY LONDON [...] mGy = 7.70 DAP = 177.74 Normal [facility] CNOVon 01-30-2024 CNOV Office Visit (REHMMN ) ----- RADHA SMITH ([id number]) 1995 F Date Time Provider Department 01/30/24 [...] Encounter Status:Closed by SADIE MENG on 01/30/24 [facility] 01-29-2024 CNPN Telephone (REHMMN) ----- RADHA SMITH ([id number]) 1995 F Date Time Provider Department 01/29/24 [...] region [M41.9] Order(s):XR SCOLIOSIS PA STAND/LAT 2V [[id number]] Order #: [id number] FUTURE Prescriptions as of 01/29/2024 - acetaminophen [...] Status:Closed by SADIE MENG on 01/29/24 [facility] ----- RADHA SMITH ([id number]) 1995 F Date Time Provider Department 01/29/24 SADIE MENG During your visit today, we recorded the following information about you: Inge Echols HUC 01/29/2024 12:29 PM Signed [place] Call Name of caller : Chelo Relationship to patient: Self Return call phone number : Central scheduling - Lisbet Puentes is supervisor grove if needed to speak to. They will [...] Elizabeth Reid MD Cc: Noel Weinstein MD; Rosetet Briseno RN Hi Keith, I'm covering Elizabeth's [...] Encounter Status:Closed by ROSETTE BRISENO on 01/29/24 [facility] 11-11-2023 [facility] ----- RADHA SMITH ([id number]) 1995 F Date Time Provider Department 11/11/23 [...] probably better if x-rays are done at [facility] facility if possible so that they may be readily accessible in [facility]. Any suggestions? Thanks, KM Rosette Briseno RN [...] to this appt OK with coming to [facility] Avoid for scheduling She will schedule [...] Encounter Status:Closed by ROSETTE BRISENO on 11/13/23 [facility] CNOVon 10-30-2023 CNOV Office Visit (REHMMN ) ----- RADHA SMITH ([id number]) 1995 F Date Time Provider Department 10/30/23 2:00 PM SADIE MENG During your visit today, we recorded the following information about you: Sadie Meng MD 10/30/2023 3:23 PM Signed REFERRAL SOURCE: Angel Luque [address] [place] [address] FOLLOWED BY: Charline Nicholson MD, MD REASON FOR CONSULTATION: rehabilitation consult. PRINCIPAL NEUROLOGIC DIAGNOSIS: Chromosome 7 abnormality (inverted duplication) HISTORY OF ILLNESS: Date of Onset: BRIEF NARRATIVE DESCRIBING HISTORY: This 27 year old right handed female was referred by Angel Luque DO for a spasticity consult. The patient was accompanied by her parents. Medical records from [facility] were reviewed. 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 She is here today at the request of orthopedics. She has bilateral hip dysplasia and was referred to [facility] for further evaluation. Parents are unable to determine if there is pain. She is ambulatory independently and mother notes that walking has worsened over the last 6 months. She has a history of hip surgery at [facility] (approximately 1997) but mother is uncertain of which side. Mother notes that she has stiffness in her legs. She does not like taking medications but was on oral baclofen several years ago but she is unable to determine efficacy. She has had multiple surgeries including achilles tendon lengthening and toe flexor tendon releases. She has physical therapy. She resides at [facility]. Symptoms/Functional Limitations Related to Spasticity: Stiffness: She [...] safety at home: No, she resides at [facility] in [place], [place] Risk of falls: Yes, but no [...] The pa (more content not included)... Normal [facility] Physician Orderon 10-24-2023 Physician Order [id number] Normal [facility] Progress Noteson 10-11-2022 Door Hanger Authentication Interface Message Text Received call on 10/10 from Anju @ [facility] - requesting to reschedule the PSE appointment for today -- Offered another appointment on 10/14 and 10/15 -- Anju declined -- I explained to her that the surgery on 11/01 would be canceled. ----- Tuesday, October 11, 2022 at 9:35:03 AM ----- ----- Provider: AFDonna Alexandre Specialist -- Clinic: [place] ----- Normal [facility] Telephone Encounteron 2022 Door Hanger Authentication Interface Message Text Reason for Escalation: Oneyda from [facility] calling in. She wanted to know more information about surgery date, time, and location. It looks like PSE has not been completed just yet. She wanted to speak to the OR sand digger directly if possible. Oneyda can be reached at [phone]. E-mail sent to Ana 09/23/22 Normal [facility] Progress Noteson 09-03-2022 Door Hanger Authentication Interface Message Text [facility] facility (Anju) was contacted for PSE AND OR scheduled -- confirmed information with guardian, also was informed importance of receiving PSE call -- if not received surgery will be canceled----- Saturday, September 03, 2022 at 11:11:13 AM ----- ----- Provider: Donna Clay Specialist -- Clinic: [place] ----- Normal [facility] UA (CLEAN/CATCH) PARAMEDIC INSTRUCTOR/MICRO I F IND.on 11-22-2021 Bilirubin Ql (U) Negative Normal NEGATIVE [facility] Comment on above: Performed By: #### U ACSIND UMICRO #### [facility] [address] [place] [address] Dr. Noble Faulkner Clarity (U) CLEAR Normal CLEAR [facility] Comment on above: Performed By: #### U ACSIND UMICRO #### [facility] [address] [address] [address] Noble Faulkner Color (U) LT. YELLOW Normal YELLOW [facility] Comment on above: Performed By: #### U ACSIND, UMICRO #### [facility] [address] [address] [address] Noble Faulkner Glucose Ql (U) Negative Normal NEGATIVE [facility] Comment on above: Performed By: #### U ACSIND, UMICRO #### [facility] [address] [address] [address] Noble Faulkner Hemoglobin Ql (U) Negative Normal NEGATIVE [facility] Comment on above: Performed By: #### U ACSIND, UMICRO #### [facility] [address] [address] [address] Noble Faulkner Ketones Ql (U) Negative Normal NEGATIVE [facility] Comment on above: Performed By: #### U ACSIND, UMICRO #### [facility] [address] [address] [address] Noble Faulkner LEUKOCYTES TRACE Abnormal NEGATIVE [facility] Comment on above: Performed By: #### U ACSIND, UMICRO #### [facility] [address] [address] [address] Noble Faulkner Nitrite Ql (U) Negative Normal NEGATIVE [facility] Comment on above: Performed By: #### U ACSIND, UMICRO #### [facility] [address] [address] [address] Noble Faulkner pH (U) 7.5 [pH] Normal 5-9 [facility] Comment on above: Performed By: #### U ACSNOMAN, UMICRO #### [facility] [address] [address] [address] Noble Faulkner SPEC GRAVITY 1.015 Normal 1.005-<=1.02 5 [facility] Comment on above: Performed By: #### U ACSNOMAN, UMICRO #### [facility] [address] [address] [address] Noble Faulkner UA PROTEIN Negative Normal NEGATIVE/ TRACE [facility] Comment on above: Performed By: #### U ACSNOMAN, UMICRO #### [facility] [address] [address] [address] Noble Faulkner UR MICRO IND INDICATED Normal [facility] Comment on above: Performed By: #### U ACSNOMAN, UMICRO #### [facility] [address] [address] [address] Noble Faulkner Urobilinogen Qn (U) 0.2 {Don'U}/dL Normal 0.2 - 1. 0 [facility] Comment on above: Performed By: #### U ACSIND, UMICRO #### [facility] [address] [address] [address] Noble Faulkner URINE MICROSCOPIC ONLYon AMORPHOUS CRYSTALS FEW Normal [facility] Comment on above: Performed By: #### U ACSIND, UMICRO #### [facility] [address] [address] [address] Noble Faulkner BACTERIA TRACE Abnormal NONE SEEN [facility] Comment on above: Performed By: #### U ACSIND, UMICRO #### [facility] [address] [address] [address] Noble Faulkner Bacteria identified Cx Nom (U) NOT INDICATED Normal [facility] Comment on above: Performed By: #### U ACSIND, UMICRO #### [facility] [address] [place] [address] Dr. Noble Faulkner CAST NONE SEEN Normal NONE SEEN [facility] Comment on above: Performed By: #### U ACSIND, UMICRO #### [facility] [address] [place] [address] Dr. Noble Faulkner Crystals LM Nom (Urine sed) SEEN Abnormal NONE SEEN [facility] Comment on above: Performed By: #### U ACSIND, UMICRO #### [facility] [address] [place] [address] Dr. Noble Faulkner Epithelial cells LM Ql (Urine sed) FEW Abnormal NONE SEEN /RARE [facility] Comment on above: Performed By: #### U ACSIND, UMICRO #### [facility] [address] [place] [address] Dr. Noble Faulkner MUCOUS NONE SEEN Normal NONE SEEN [facility] Comment on above: Performed By: #### U ACSIND, UMICRO #### [facility] [address] [address] [address] Noble Faulkner RBC NONE SEEN Abnormal 0-2 [facility] Comment on above: Performed By: #### U ACSIND, UMICRO #### [facility] [address] [place] [address] Dr. Noble Faulkner WBC 0-2 Abnormal NONE SEEN [facility] Comment on above: Performed By: #### U ACSIND, UMICRO #### [facility] [address] [address] [address] Noble Faulkner Established Visit (Orthopaed ic [...] about her gait. She lives in [facility] and is with her caregiver today. She [...] in the past with Dr. Stevenson at [facility]. There has been no concern on [...] Sep 30 2021 12:40PM EST (Author) Normal [employer] Established Visit (Orthopaed ic Surgery)on 02-20-2021 Established [...] vertebrae. She has been living in [facility] for 5 years. Asha does not currently [...] Feb 20 2021 3:07PM EST (Author) Normal [facility] Progress Noteon 02-27-2018 HIM IP Note OR Door Hanger Normal [facility] Progress Noteon 01-23-2018 HIM IP Note OR Door Hanger Normal [facility] Progress Noteon 12-26-2017 HIM IP Note OR Door Hanger Normal [facility] Progress Noteon 12-05-2017 HIM IP Note OR Door Hanger Normal [facility] Progress Noteon 11-21-2017 HIM IP Note OR Door Hanger Normal [facility] Progress Noteon 11-09-2017 HIM IP Note OR Door Hanger Normal [facility] Progress Noteon 10-16-2017 HIM IP Note OR Door Hanger Normal [facility] Progress Noteon 10-10-2017 HIM IP Note OR Door Hanger Normal [facility] Progress Noteon 09-27-2017 HIM IP Note OR Door Hanger Normal [facility] Progress Noteon 09-17-2017 HIM IP Note OR Door Hanger Normal [facility] Homocysteineon 09-13-2017 Homocysteine 8.5 umol/L Normal <15.0 [facility] Comment on above: Result Comment: Perf ormed at [address] [address] Performed By: #### Alexys MALHOTRA HOCYS ####[address] [address] #### CP ####[address] [place] [address] CBCon 09-12-2017 Erythrocyte distribution width Auto Ratio (RBC) 11.9 % Normal 11.8-14.4 [facility] Comment on above: Performed By: #### C MARYA HOCYS ####[address] [address] #### CP ####[address] [place] [address] Erythrocytes (RBC) 4.79 10*6/uL Normal 3.95-5.11 [facility] Comment on above: Performed By: #### C MARYA HOCYS ####[address] [address] #### CP ####[address] [place] [address] Erythrocytes (RBC) 0.0 per 100 WBC Normal 0.0 M [facility] Comment on above: Result Comment: Perf ormed at [address] [address] Performed By: #### C BC, HOCYS ####[address] [address] #### CP ####[address] [place] [address] Hematocrit (HCT) 42.9 % Normal 36.3-47.1 [facility] Comment on above: Performed By: #### C BC, HOCYS ####[address] [address] #### CP ####[address] [place] [address] Hemoglobin mass conc (Bld) 14.9 g/dL Normal 11.9-15.1 [facility] Comment on above: Performed By: #### C MARYA, HOCYS ####[address] [address] #### CP ####[address] [place] [address] MCH 31.1 pg Normal 25.2-33.5 [facility] Comment on above: Performed By: #### C BC, HOCYS ####[address] [address] #### CP ####[address] [place] [address] MCHC mass conc (RBC) 34.7 g/dL Normal 28.4-34.8 [facility] Comment on above: Performed By: #### C BC, HOCYS ####[address] [address] #### CP ####[address] [place] [address] MCV 89.6 fL Normal 82.6-102.9 [facility] Comment on above: Performed By: #### C BC, HOCYS ####[address] [address] #### CP ####[address] [place] [address] Platelet mean volume (PMV) 10.9 fL Normal 8.1-13.5 [facility] Comment on above: Performed By: #### C BC, HOCYS ####[address] [address] #### CP ####[address] [place] [address] Platelets 170 10*3/uL Normal 138-453 [facility] Comment on above: Performed By: #### C BC, HOCYS ####[address] [address] #### CP ####[address] [place] [address] WBC (Leukocytes) 8.7 10*3/uL Normal 4.5-13.5 [facility] Comment on above: Performed By: #### C MARYA, HOCYS ####[address] [address] #### CP ####[address] [place] [address] Comp Metabolic Profon 2017 (cont.) Normal [facility] Comment on above: Result Comment: Aver age GFR for 20-29 years old: 116 mL/min/1.73sq mChronic Kidney Disease: <60 mL/min/1.73sq mKidney failure: <15 mL/min/1.73sq meGFR calculated using average adult body mass. Additional eGFR calculator available at:http://www.Tag[employer]By.[employer]/multiple_crcl_2012.htm Performed By: #### C BC, HOCYS ####[address] [address] #### CP ####[address] [place] [address] Alanine aminotransferase (ALT) 18 U/L Normal 5-33 [facility] Comment on above: Performed By: #### C BC, HOCYS ####[address] [address] #### CP ####[address] [place] [address] Albumin 4.2 g/dL Normal 3.5-5.2 [facility] Comment on above: Performed By: #### C BC, HOCYS ####[address] [address] #### CP ####[address] [place] [address] Albumin/Globulin Ratio 1.3 {ratio} Normal 1.0-2.5 [facility] Comment on above: Performed By: #### C BC, HOCYS ####[address] [address] #### CP ####[address] [place] [address] Alkaline Phos 112 U/L High 35-104 [facility] Comment on above: Performed By: #### C BC, HOCYS ####[address] [address] #### CP ####[address] [place] [address] Anion gap 12 mmol/L Normal 9-17 [facility] Comment on above: Performed By: #### C BC, HOCYS ####[address] [address] #### CP ####[address] [place] [address] Aspartate aminotransferase (AST) 25 U/L Normal <32 [facility] Comment on above: Performed By: #### C BC, HOCYS ####[address] [address] #### CP ####[address] [place] [address] Bilirubin Ql (U) 0.60 mg/dL Normal 0.3-1.2 [facility] Comment on above: Performed By: #### C BC, HOCYS ####[address] [address] #### CP ####[address] [place] [address] BUN/CRE Ratio 25 High 9-20 [facility] Comment on above: Performed By: #### C BC, HOCYS ####[address] [address] #### CP ####[address] [place] [address] Calcium 9.5 mg/dL Normal 8.6-10.4 [facility] Comment on above: Performed By: #### C BC, HOCYS ####[address] [address] #### CP ####[address] [place] [address] Chloride 103 mmol/L Normal 98-107 [facility] Comment on above: Performed By: #### C BC, HOCYS ####[address] [address] #### CP ####[address] [place] [address] CO2 24 mmol/L Normal 20-31 [facility] Comment on above: Performed By: #### C BC, HOCYS ####[address] [address] #### CP ####[address] [place] [address] Creatinine 0.69 mg/dL Normal 0.50-0.90 [facility] Comment on above: Performed By: #### C BC, HOCYS ####[address] [address] #### CP ####[address] [place] [address] eGFR (non-black) mL/min/{1.73_m2} Normal >60 [facility] Comment on above: Performed By: #### C MARYA, HOCYS ####[address] [address] #### CP ####[address] [place] [address] Glucose mass conc 97 mg/dL Normal 70-99 [facility] Comment on above: Performed By: #### C BC, HOCYS ####[address] [address] #### CP ####[address] [place] [address] Potassium molar conc 4.0 mmol/L Normal 3.7-5.3 [facility] Comment on above: Performed By: #### C BC, HOCYS ####[address] [address] #### CP ####[address] [place] [address] Protein 7.5 g/dL Normal 6.4-8.3 [facility] Comment on above: Performed By: #### C BC, HOCYS ####[address] [address] #### CP ####[address] [place] [address] Sodium 139 mmol/L Normal 135-144 [facility] Comment on above: Performed By: #### C MARYA, HOCYS ####[address] [address] #### CP ####[address] [place] [address] Staging: Normal [facility] Comment on above: Result Comment: Stag e 1: Some kidney damage normal GFRStage 2: Mild kidney damage GFR 60-89Stage 3: Moderate kidney damage GFR 30-59Stage 4: Severe kidney damage GFR 15-29Stage 5: Severe kidney damage GFR <15ESRD - chronic treatment by dialysis or transplantPerformed at [address] [place] [address] Performed By: #### Alexys MALHOTRA, HOCYS ####[address] [address] #### CP ####[address] [place] [address] Urea nitrogen 17 mg/dL Normal 6-20 [facility] Comment on above: Performed By: #### C MARYA, HOCYS ####[address] [address] #### CP ####[address] [place] [address] History and Physicalon 09-12 HIM IP Note OR Door Hanger Normal [facility] Op Noteon 09-12-2017 HIM IP Note OR Door Hanger Normal [facility] Progress Noteon 09-12-2017 HIM IP Note OR Door Hanger Normal [facility] HIM IP Note OR Door Hanger Normal [facility] Progress Noteon 09-05-2017 HIM IP Note OR Door Hanger Normal [facility] HCG Screen, Bloodon 09-05-19 18 HCG Qn Negative Normal NEG [facility] Comment on above: Result Comment: Spec imens with hCG levels near the threshold of the test (25 mIU/mL) may give a negative or indeterminate result. In such cases, another test should be performed with a new specimen in 48-72 hours. If early is suspected clinically in this setting, correlation with quantitative serum b-hCG level is suggested.[facility] has confirmed the use of plasma for this test. This has not been cleared or approved by the U.S. Food and Drug Administration. The FDA has determined that such clearance is not necessary.Performed at [address] [place], [place] [id number] [phone] Performed By: #### H CG ####[address] [place] [address] Op Noteon 09-04-2017 HIM IP Note OR Door Hanger Normal [facility] Progress Noteon 09-04-2017 HIM IP Note OR Door Hanger Normal [facility] HIM IP Note OR Door Hanger Normal [facility] HIM IP Note OR Door Hanger Normal [facility] HIM IP Note OR Door Hanger Normal [facility] IP Note OR Door Hanger Normal [facility] Surgical Pathologyon 018 Surgical Pathology (NOTE)[id number] Y LABORATORIESCONSULTING PATHOLOGISTS CORPORATIONANATOMIC [id number] [place], [place] [id number] Fax: SURGICAL PATHOLOGY CONSULTATIONPatient Name: [facility] Rec: [id number] Number: [id number]: 09/04/2017Received: 09/05/2017Reported: 09/09/2017 11:14-- Diagnosis --SKIN AND SOFT TISSUE, BACK, EXCISIONS: - MULTIPLE PORTIONS OF INFLAMED KELOIDS.Home Avial M.D.Electronically Signed Out09/05/2017Cash davies InformationPre-op Diagnosis: PAINFUL [...] fascicles contain cells with foamy cytoplasm. An [id number] was performed and appears negative in these foci,excluding a granular cell tumor. Controls stain appropriately. Normal [facility] History and Physicalon 09-01 HIM IP Note OR Door Hanger Normal [facility] Progress Noteon 08-20-2017 HIM IP Note OR Door Hanger [facility] HIM IP Note OR Door Hanger [facility] Progress Noteon 08-09-2017 HIM IP Note OR Door Hanger Normal [facility] Vital Signs Date Time Vital Sign Value Performing Clinician Satnam saravia 08-27-2023 11:09-0400 Body height 147.32 cm DO Imer Crowder Work Phone: [facility] 08-27-2023 11:09-0400 Body mass index (BMI) [Ratio] 26.9 kg/m2 DO Imer Crowder Work Phone: [facility] 08-27-2023 11:09-0400 Body weight 58.57 kg DO Imer Crowder Work Phone: [facility] 09-04-2021 15:32-0400 Body height 147.32 cm DO Imer Crowder Work Phone: [facility] 09-04-2021 15:32-0400 Body mass index (BMI) [Ratio] 30.2 kg/m2 DO Imer Crowder Work Phone: [facility] 09-04-2021 15:32-0400 Body weight 65.48 kg DO Imer Crowder Work Phone: [facility] 09-04-2021 15:120400 Body temperature 98.4 [degF] DO Imer Crowder Work Phone: [facility] 09-04-2021 15:120400 Respiratory rate 24 /min DO Imer Crowder Work Phone: [facility] Encounters Encounter Date Encounter Type Care Provider Facility Start: 02-10-2024 End: 02-10-2024 ambulatory IMER CROWDER Facility[place] Start: 02-10-2024 End: 02-10-2024 Patient encounter procedure IMER CROWDER [facility] Start: 01-30-2024 End: 01-30-2024 Patient encounter procedure Sadie Meng MD Work Phone: [facility] Comment on above: NO SHOW (Primary Dx) Start: 01-29-2024 End: 01-29-2024 Telephone encounter Sadie Meng MD [facility]: [facility] [facility] [place] Comment on above: Appointment Orders Start: 11-12-2023 Orders Only Sadie Meng MD Work Phone: Rehab Medicine Comment on above: Anomaly of chromosom e pair 7 (Primary Dx); Scoliosis, unspecified scoliosis type, unspecified spinal region Start: 11-11-2023 Telephone encounter Sadie bateman MD Work Phone: [facility] Comment on above: Appointment Start: 10-30-2023 End: 10-30-2023 ambulatory ANGEL LUQUE Facility:[facility] Start: 10-30-2023 End: 10-30-2023 Patient encounter procedure Sadie Meng MD Work Phone: [facility] Comment on above: Hip dysplasia, conge nital (Primary Dx); Anomaly of chromosome pair 7; Congenital diplegia (HCC) Start: 10-24-2023 End: 12-03-2023 Pre-admission assessment IMER CROWDER [facility] Start: 08-27-2023 End: 08-27-2023 ambulatory DO Imer Crowder Work Phone: [facility] Work Phone: Start: 08-27-2023 End: 08-27-2023 Patient encounter procedure DO Imer Crowder Work Phone: [facility] Work Phone: Start: 09-23-2022 Telephone encounter Juan Manuel Klaudia mills DDS Work Phone: [facility] Comment on above: Dental Start: 11-22-2021 End: 11-22-[address] IMER CROWDER Facility:H1 Start: 09-24-2021 Office outpatient vi sit 15 minutes Imer Crowder Work Phone: [facility] Work Phone: Start: 09-24-2021 Patient encounter procedure Imer Crowder Work Phone: [facility] Work Phone: Start: 09-05-[address] IMER CROWDER Fac ility:[facility]1 Start: 09-04-2021 End: 09-04-2021 ambulatory Laura Fortune Facility:[facility] Start: 09-04-2021 End: 09-04-2021 Discharged Recurring DO Imer Crowder Work Phone: [facility] [place] Start: 02-20-2021 Office outpatient vi sit 15 minutes Imer Crowder Work Phone: [facility] Work Phone: Start: 02-07-2021 AUDIT Imer Feliz ng Work Phone: [facility] Work Phone: Start: 09-14-2018 Patient encounter procedure Savanah Pineda Facility:[id number] Start: 08-18-2018 Patient encounter procedure Savanah Pineda Facility:[id number] Start: 02-17-2018 Patient encounter procedure Savanah Pineda Facility:[id number] Start: 09-12-2017 End: 09-13-2017 Ambulatory [facility] Start: 09-04-2017 End: 09-04-2017 Ambulatory [facility] Procedures Date Procedure Procedure Detail [...] 2) [facility] Start: 02-08-2024 Influenza vaccination C [facility] Start: 01-30-2024 End: 01-30-2024 Patient encounter procedure [facility] Comment on above: Follow up Hip dysplasia, conge nital (Primary Dx); Anomaly of chromosome pair 7; Congenital diplegia (HCC) Start: 12-08-2023 End: 12-08-2023 Patient encounter procedure 12/08/2023 3:00 PM EDT Appointment Radiology [address] [place] [address] XR SCOLIOSIS AND XR HIP (NEW ORDERS PENDING) Radiology Comment on above: XR SCOLIOSIS AND XR HIP (NEW ORDERS PENDING) Start: 08-27-2023 Patient referral [facility] Work Phone: Start: 06-09-2023 Behavioral Health Screening Behavioral Health Screening [facility] Start: 02-07-2023 Covid-19 Vaccine ( season) Covid-19 Vaccine ( season) [facility] Start: 11-01-2022 End: 11-01-2022 Admission to same day surgery center 11/01/2022 Surgery Ambulatory Surgery Lizbeth RomeroYordy jose, DDS [address] [place] [address] DENTAL RESTORATIONS [facility] Ambulatory Surgery Comment on above: DENTAL RESTORATIONS Start: 11-01-2022 End: 11-01-2022 DENTAL RESTORATIONS DENTAL RESTORATIONS Routine scheduled Caries 11/01/2022 11:28 AM EDT [facility] Start: 11-01-2022 Subsequent hospital visit by physician 11/01/2022 Hospital Encounter Ambulatory Surgery Lizbeth Yordy Urbina, DDS [address] [place] [address] [facility] Ambulatory Surgery Start: 10-11-2022 End: 10-11-2022 Patient encounter procedure 10/11/2022 Office Visit Pediatric Comp Care Ayad Heck MD [address] [place] [id number] [facility] Start: 02-20-2021 FUV, Provider: Savanah Pineda, Status: Pen, Time: 1:45 PM FUV, Provider: Savanah Pineda, Status: Pen, Time: 1:45 PM [facility] Work Phone: Start: 2017 Screening for malign ant neoplasm of cervix [facility] Start: 2014 Anxiety Screening Anxiety Screening [facility] Start: 2014 Depression Screening Depression Scre ening [facility] Start: 2014 Hepatitis C screening M [facility] Start: 2014 HIV screening HIV Screening [facility] Start: 2014 Tetanus + diphtheria + acellular pertussis vaccine (product) Tdap Booster [facility] Start: 03-16-2014 Urine microalbumin profile DTaP,Tdap,Td Vaccine (6 - Tdap) [facility] Start: 12-25-2011 HIV screening HIV Test [facility] Start: 12-25-2011 HPV Vaccine (1 - 3-d ose series) HPV Vaccine (1 - 3-dose series) [facility] Start: 2010 Peds To Adult Transi tion Annual Assessment Peds To Adult Transition Annual Assessment [facility] Start: 2008 Peds To Adult Transi tion Initial Discussion Peds To Adult Transition Initial Discussion [facility] Start: 12-25-2007 Vaccination for cabrera n papillomavirus Human Papilloma (HPV) Vaccine (1 - 2-dose series) [facility] Start: 06-26-1997 COVID-19 Vaccine (#1) COVID-19 Vacci ne (#1) [facility] Patient referral [facility] Work Phone: End: 11-28-2024 XR HIP BILATERAL 5V PEL/AP/LAT EACH HIP XR HIP BILATERAL 5V PEL/AP/LAT EACH HIP Radiology Routine Hip dysplasia, congenital 1 Occurrences starting 10/30/2023 until 11/28/2024 [facility] Work Phone: Comment on above: 1 Occurrences starti ng 10/30/2023 until 11/28/2024 End: 12-11-2024 XR Thoracic and lumbar spine Views for scoliosis W standing [facility] Work Phone: Comment on above: 1 Occurrences starti ng 11/13/2023 until 12/11/2024 1 Occurrences starti ng 01/29/2024 until 12/11/2024 Immunizations Immunization Date Immunization Notes Care Provider [facility] 04-04-2021 influenza, injectabl e, quadrivalent, preservative free Juan Manuel Aleman DDS Work Phone: [facility] 04-04-2021 influenza virus vacc ine, unspecified formulation Sadie Meng MD Work Phone: [facility] 03-15-2014 TD(adult) unspecifie d formulation Juan Manuel Aleman DDS Work Phone: [facility] 09-21-2010 hepatitis A vaccine, pediatric/adolescent dosage, 2 dose schedule [facility] Work Phone: [facility] 09-25-2009 hepatitis A vaccine, pediatric/adolescent dosage, 2 dose schedule [facility] Work Phone: [facility] 09-25-2009 meningococcal polysaccharide vaccine (MPSV4) [facility] Work [facility] 04-22-2002 diphtheria and tetan us toxoids, adsorbed for pediatric use [facility] Work Phone: [facility] 04-22-2002 measles, mumps and rubella virus vaccine [facility] Work Phone: [facility] 04-22-2002 poliovirus vaccine, inactivated [facility] Work Phone: [facility] 04-22-2002 varicella virus vaccine [facility] Work Phone: [facility] 01-14-2002 diphtheria and tetan us toxoids, adsorbed for pediatric use [facility] Work Phone: [facility] 01-14-2002 measles, mumps and rubella virus vaccine [facility] Work Phone: [facility] 01-14-2002 poliovirus vaccine, inactivated [facility] Work Phone: [facility] 08-08-1998 diphtheria and tetan us toxoids, adsorbed for pediatric use [facility] Work Phone: [facility] 08-08-1998 haemophilus influenz ae type b vaccine, conjugate unspecified formulation [facility] Work Phone: [facility] 08-08-1998 hepatitis B vaccine, pediatric or pediatric/adolescent dosage Juan Manuel Al-Mashni DDS Work Phone: [facility] 08-08-1998 poliovirus vaccine, inactivated Juan Manuel Al-Mashni DDS Work Phone: [facility] 06-30-1998 measles, mumps and rubella virus vaccine Juan Manuel Al-Mashni DDS Work Phone: [facility] 09-01-1997 diphtheria and tetan us toxoids, adsorbed for pediatric use Juan Manuel Al-Mashni DDS Work Phone: [facility] 09-01-1997 haemophilus influenz ae type b vaccine, conjugate unspecified formulation Juan Manuel Al-Mashni DDS Work Phone: [facility] 06-30-1997 diphtheria and tetan us toxoids, adsorbed for pediatric use Juan Manuel Al-Mashni DDS Work Phone: [facility] 06-30-1997 poliovirus vaccine, inactivated Juan Manuel Al-Mashni DDS Work Phone: [facility] 03-25-1997 diphtheria, tetanus toxoids and acellular pertussis vaccine, unspecified formulation Juan Manuel Al-Mashni DDS Work Phone: [facility] 03-25-1997 haemophilus influenz ae type b vaccine, conjugate unspecified formulation Juan Manuel Al-Mashni DDS Work Phone: [facility] 02-23-1997 hepatitis B vaccine, pediatric or pediatric/adolescent dosage Juan Manuel Al-Mashni DDS Work Phone: [facility] 02-23-1997 poliovirus vaccine, inactivated Juan Manuel Al-Mashni DDS Work Phone: [facility] 1996 hepatitis B vaccine, pediatric or pediatric/adolescent dosage Juan Manuel Al-Mashni DDS Work Phone: [facility] Payers Date Payer Category Payer Self-pay [id number] 2013 Medicaid [id number] 1996 Unknown [id number] [id number] 1996 Unknown [id number] 2.16. [id number] 1996 Unknown [id number] 2.16. [id number] 1996 Unknown [id number] 1996 Unknown [id number] [id number] 1996 Unknown [id number] [id number] 1959 Medicaid [id number] Unknown MEDICAID Unknown [id number] Unknown [id number] Social History Date Type Detail Facility Start: 05-16-2020 End: 10-30-2023 Never a smoker Never a smoker [facility] Work Phone: Start: 1995 Sex Assigned At Female F [facility] Tobacco smoking status [facility] Tobacco smoking consumption unknown [facility] Start: 1996 Sex Assigned At [facility] file [facility] Start: 10-30-2023 Tobacco smoking status TNIS Never smoked tobacco [facility] Start: 10-30-2023 Tobacco use and exposure Smokeless tobacco non-user [facility] Start: 10-30-2023 Alcohol intake Lifetime non-d nj (finding) [facility] Start: 05-16-2020 End: 10-30-2023 Tobacco use panel [facility] National Score (1-100), lower number is lower risk Not on file [facility] Tobacco smoking status No Smoking Status Entered [facility] Clinical Notes 09-25-2020 to 01-30-2024 Sadie Meng MD - 01/30/2024 12:19 PM EDTTelephone Encounter - Rosette Briseno RN - 01/29/2024 3:01 PM EDTTelephone Encounter - Rosette Briseno RN - 01/29/2024 3:01 PM EDT Note Date & Type Note Facility 01-30-2024 Note HNO ID: [id number] Author: SADIE MENG MD Service: ? Author Type: Physician Type: Progress Notes Filed: 01/30/2024 12:20 Note Text: The patient was a no show. [facility] 01-30-2024 History of Present illness Narrative The patient was a no show. documented in this encounter [facility] 01-29-2024 Telephone encounter Note Images [...] for ease/decreased visits. Viji De La Torre [facility] Work Phone: 01-29-2024 Miscellaneous Notes [...] : Central scheduling - Lisbet Deloris is supervisor [place] if needed to speak to. They will [...] for X ray. documented in this encounter [facility] 01-29-2024 Telephone encounter Note Kacy Call Name of caller : Chelo Relationship to patient: Self Return call phone number : Central scheduling - Lisbet Chit is supervisor [place]ve if needed to speak to. They will [...] can not do anesthesia for X ray. [facility] 01-29-2024 Miscellaneous Notes I reviewed [...] De La Torre documented in this encounter [facility] 01-29-2024 Telephone encounter Note I reviewed orders and agree. Sadie Meng MD [facility] 01-29-2024 Telephone encounter Note Called radiology Talked with Ray He again sent message to safety committee to contact patient regarding anesthesia for xrays to be scheduled Scoliosis and bilat hip under anesthesia Need new order for scoliosis to only say anesthesia - pending order sent to Dr Meng [facility] 01-29-2024 Telephone encounter Note ----- Message from Sadie Meng MD sent at 01/29/2024 7:27 AM EDT ----- Regarding: X-rays with sedation Jacquelin, I am seeing Radha tomorrow. It doesn't look like anything is scheduled for x-rays with sedation. Where are we with this? JULIETTE De La Torre [facility] 11-13-2023 Telephone encounter Note Called radiology, talked with Marychuy Will forward to safety committee She states it may take 10-14 days to receive a call to schedule Will monitor weekly to make sure gets scheduled [facility] Work Phone: 11-13-2023 Miscellaneous Notes [...] to this appt OK with coming to [facility] Avoid for scheduling She will schedule [...] probably better if x-rays are done at [facility] facility if possible so that they may be readily accessible in [facility]. Any suggestions? Thanks, KM documented in this encounter [facility] 11-12-2023 Telephone encounter Note SPECIALTY [...] to this appt OK with coming to [facility] Avoid for scheduling She will schedule [...] for review before this can be scheduled [facility] 11-11-2023 Telephone encounter Note Images [...] probably better if x-rays are done at [facility] facility if possible so that they may be readily accessible in [facility]. Any suggestions? Thanks, KM [facility] 10-30-2023 Note HNO ID: [id number] Author: SADIE MENG MD Service: ? Author Type: Physician Type: Progress Notes Filed: 10/30/2023 15:23 Note Text: REFERRAL SOURCE: Angel Luque [address] [place] [address] FOLLOWED BY: Charline Nicholson MD, MD REASON FOR CONSULTATION: rehabilitation consult. PRINCIPAL NEUROLOGIC DIAGNOSIS: Chromosome 7 abnormality (inverted duplication) HISTORY OF ILLNESS: Date of Onset: BRIEF NARRATIVE DESCRIBING HISTORY: This 27 year old right handed female was referred by Angel Luque DO for a spasticity consult. The patient was accompanied by her parents. Medical records from [facility] Everywhere were reviewed. 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 She is here today at the request of orthopedics. She has bilateral hip dysplasia and was referred to [facility] for further evaluation. Parents are unable to determine if there is pain. She is ambulatory independently and mother notes that walking has worsened over the last 6 months. She has a history of hip surgery at [facility] (approximately 1997) but mother is uncertain of which side. Mother notes that she has stiffness in her legs. She does not like taking medications but was on oral baclofen several years ago but she is unable to determine efficacy. She has had multiple surgeries including achilles tendonlengthening and toe flexor tendon releases. She has physical therapy. She resides at [facility]. Symptoms/Functional Limitations Related to Spasticity: Stiffness: She [...] safety at home: No, she resides at [facility] in [place], [place] Risk of falls: Yes, but no [...] pathological anxiety or (more content not included)... [facility] 10-30-2023 History of Present illness Narrative Images from the original note were not included. REFERRAL SOURCE: Angel Luque [address] [place] [address] FOLLOWED BY: Charline Nicholson MD, MD REASON FOR CONSULTATION: rehabilitation consult. PRINCIPAL NEUROLOGIC DIAGNOSIS: Chromosome 7 abnormality (inverted duplication) HISTORY OF ILLNESS: Date of Onset: BRIEF NARRATIVE DESCRIBING HISTORY: This 27 year old right handed female was referred by Angel Luque DO for a spasticity consult. The patient was accompanied by her parents. Medical records from [facility] were reviewed. 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 She is here today at the request of orthopedics. She has bilateral hip dysplasia and was referred to [facility] for further evaluation. Parents are unable to determine if there is pain. She is ambulatory independently and mother notes that walking has worsened over the last 6 months. She has a history of hip surgery at [facility] (approximately 1997) but mother is uncertain of which side. Mother notes that she has stiffness in her legs. She does not like taking medications but was on oral baclofen several years ago but she is unable to determine efficacy. She has had multiple surgeries including achilles tendon lengthening and toe flexor tendon releases. She has physical therapy. She resides at [facility]. Symptoms/Functional Limitations Related to Spasticity: Stiffness: She [...] safety at home: No, she resides at [facility] in [place], [place] Risk of falls: Yes, but no [...] 6 months. Local orthopedics referred her to [facility] for further evaluation and treatment of hip [...] will follow up in 3 months. MS SAMANEIGO PRE AUTH Educational materials provided: No Checklist [...] Sadie Meng MD documented in this encounter [facility] 09-23-2022 Telephone encounter Note Reason for Escalation: Oneyda from [employer] calling in. She wanted to know more information about surgery date, time, and location. It looks like PSE has not been completed just yet. She wanted to speak to the OR sand digger directly if possible. Oneyda can be reached at [phone]. E-mail sent to [facility] 09/23/22 [facility] 09-23-2022 Miscellaneous Notes Reason for Escalation: Oneyda from [employer] calling in. She wanted to know more information about surgery date, time, and location. It looks like PSE has not been completed just yet. She wanted to speak to the OR sand digger directly if possible. Oneyda can be reached at [phone]. E-mail sent to [facility] 09/23/22 documented in this encounter [facility] 09-30-2020 History of Present illness Narrative Asha is a 25 year old female with a history of hip dysplasia, inverted duplication of chromosome 7, spasticity, global developmental delay, and congenital fusion of several vertebrae. She presents for follow up of hallux valgus and toe walking today. Her mother is concerned about her gait. She lives in [facility] and is with her caregiver today. She [...] in the past with Dr. Stevenson at [facility]. There has been no concern on the part of the staff at her facility that she has had any pain since we last saw her. [employer] Work Phone: 09-25-2020 History of Present illness Narrative Asha is a 25 year old female with a history of hip dysplasia, inverted duplication of chromosome 7, spasticity, global developmental delay, and congenital fusion of several vertebrae. She presents for follow up of hallux valgus and toe walking today. Her mother is concerned about her gait. She lives in [facility] and is with her caregiver today. She feels that her gait has not changed over the past year. She does not believe that Asah is in pain. Asha does not currently wear any braces or orthotics. She only uses a wheelchair for long distances. She does not take any medications for spasticity. She has had Achilles lengthening and toe surgeries in the past with Dr. Stevenson at [facility]. There has been no concern on the part of the staff at her facility that she has had any pain since we last saw her. [facility] Work Phone: Evaluation + Plan note No data available for this section [facility] Evaluation note Diagnosis Onset Date Intact skin acute [facility] Work Phone: Evaluation note* Diagnosis Onset Date Resolution Status Congenital dysplasia of left hip acute Osteoarthritis of left hip a [facility] Work Phone: Evaluation note* Diagnosis Hip dysplasia, congenital- Primary Other congenital deformity of hip (joint) Anomaly of chromosome pair 7 Other conditions due to chromosome anomalies Congenital diplegia (HCC) Congenital diplegia [facility] Anomaly of chromosome pair 7- Primary Other conditions due to chromosome anomalies Scoliosis, unspecified scoliosis type, unspecified spinal region [facility] Anomaly of chromosome pair 7 Other conditions due to chromosome anomalies Scoliosis, unspecified scoliosis type, unspecified spinal region Hip dysplasia, congenital- Primary Other congenital deformity of hip (joint) Anomaly of chromosome pair 7 Other conditions due to chromosome anomalies Congenital diplegia (HCC) Congenital diplegia [facility] NO SHOW- Primary [facility] NarrativeAsha is a [...] vertebrae. She has been living in [facility] for 5 years. Asha does not currently wear any braces or orthotics. She does not take any medications for spasticity[facility] Work Phone: Hospital Discharge instructions No data available for this section [facility] No data available for this section [facility] Diagnostic Procedure Only (Routine) - Pending Review Specialty Diagnoses / Procedures Referred By Ralph ramirez Referred To Contact XR IMAGING Diagnoses Hip dysplasia, congenital Procedures XR HIP BILATERAL 5V PEL/AP/LAT EACH HIP RADEX HIPS BILATERAL WITH PELVIS MINIMUM 5 VIEWS Sadie Meng MD [address] [place] [address] [place] [id number] Referral ID Status Reason Start Date Expiration Date Visits Requested Visits Authorized [id number] Pending Review Auto-Generat ed Referral 10/30/2023 11/28/2024 1 1 * Consult, Test, Treat (Routine) - Authorized Specialty Diagnoses / Procedures Referred By Contac t Referred To Contact Orthopedics Diagnoses Hip dysplasia, congenital Procedures CONSULT TO ORTHOPAEDICS OFFICE/OUTPATIENT NEW HIGH MDM 60 MINUTES Sadie Meng MD [address] [id number] Referral ID Status Reason Start Date Expiration Date Visits Requested Visits Authorized [id number] Authorized PCP Requested Referral 10/30/2023 10/29/2024 1 1 [facility] [facility] for referral (narrative)* Diagnostic Procedure Only (Routine) - Authorized Specialty Diagnoses / Procedures Referred By Contac t Referred To Contact XR IMAGING Diagnoses Anomaly of chromosome pair 7 Scoliosis, unspecified scoliosis type, unspecified spinal region Procedures XR SCOLIOSIS PA STAND/LAT 2V RADEX ENTIR THRC LMBR CRV SAC SPI W/SKULL 2/3 Sadie Meng MD [address] [place] [address] X[facility] [place] [address] Referral ID Status Reason Start Date Expiration Date Visits Requested Visits Authorized [id number] Authorized Auto-Generat ed Referral 11/13/2023 12/11/2024 1 1 [facility] for referral (narrative)* Diagnostic Procedure Only (Routine) - New Request Specialty Diagnoses / Procedures Referred By Contac t Referred To Contact XR IMAGING Diagnoses Anomaly of chromosome pair 7 Scoliosis, unspecified scoliosis type, unspecified spinal region Procedures XR SCOLIOSIS PA STAND/LAT 2V XR SCOLIOSIS PA STAND/LAT 2V RADEX ENTIR THRC LMBR CRV SAC SPI W/SKULL 2/3 Sadie Dias MD [address] [place] [id number] X[facility] [place] [address] Referral ID Status Reason Start Date Expiration Date Visits Requested Visits Authorized [id number] New Request Auto-Generat ed Referral 11/13/2023 12/11/2024 1 1 [facility] Summary Purpose Family History No [...] section and content) DATE CREATED AUTHOR 11/27/2017 [facility] pitri DATE CREATED AUTHOR AUTHOR'S ORGANIZ ATION 03/27/2018 [facility] DATE CREATED AUTHOR AUTHOR'S ORGANIZ ATION 09/15/2018 [facility] DATE CREATED AUTHOR AUTHOR'S ORGANIZ ATION 10/01/2021 [facility] DATE CREATED AUTHOR AUTHOR'S ORGANIZ ATION 11/24/2021 [facility] DATE CREATED AUTHOR AUTHOR'S ORGANIZ ATION 10/14/2022 [facility] DATE CREATED AUTHOR AUTHOR'S ORGANIZ ATION 09/17/2023 [facility] DATE CREATED AUTHOR AUTHOR'S ORGANIZ ATION 01/31/2024 [facility] DATE CREATED AUTHOR AUTHOR'S ORGANIZ ATION 02/20/2024 [facility] Care Teams (unrecognized sec tion and content) Team Status: Inactive Member Role Status Dates Imer Crowder DO Primary Care Provider Active Laura Fortune APRN Attending Provider Active Team Status: Active Member Role Status Dates Imre Crowder DO Primary Care Provider Active Team [...] Provider Active S tart: August 27, 2023 Dog Warden Relationship Specialty Start Date End Date Gustavo Nicholson MD [address] [place] [address] PCP - General 09/17/00 Angel Luque DO [address] [place] [address] Referring Orthopedics 09/05/23 Dog Warden Relationship Specialty Start Date End Date Gustavo Nicholson MD [address] [place] [place] [address] PCP - General 09/17/00 Angel Luque DO [address] [place] [address] Referring Orthopedics 09/05/23 Dog Warden Relationship Specialty Start Date End Date Gustavo Nicholson MD [address] [place] [address] PCP - General 09/17/00 Angel Luque DO [address] [place] [address] Referring Orthopedics 09/05/23 Dog Warden Relationship Specialty Start Date End Date Gustavo Nicholson MD [address] [place] [address] PCP - General 09/17/00 Angel Luque DO [address] [place] [address] Referring Orthopedics 09/05/23 Goals (unrecognized section and [...] or prosecute any alcohol or drug abuse patient.[facility] the event this information is protected by the Federal Confidentiality of Alcohol and Drug Abuse Patient Records regulations: The Federal rules restrict any use of the information to criminally investigate or prosecute any alcohol or drug abuse patient.[facility] the event this information is protected by the Federal Confidentiality of Alcohol and Drug Abuse Patient Records regulations: The Federal rules restrict any use of the information to criminally investigate or prosecute any alcohol or drug abuse patient.[facility] the event this information is protected by the Federal Confidentiality of Alcohol and Drug Abuse Patient Records regulations: The Federal rules restrict any use of the information to criminally investigate or prosecute any alcohol or drug abuse patient.[facility] the event this information is protected by the Federal Confidentiality of Alcohol and Drug Abuse Patient Records regulations: The Federal rules restrict any use of the information to criminally investigate or prosecute any alcohol or drug abuse patient.[facility] the event this information is protected by the Federal Confidentiality of Alcohol and Drug Abuse Patient Records regulations: The Federal rules restrict any use of the information to criminally investigate or prosecute any alcohol or drug abuse patient.[facility] FOR RECORDS PERTAINING TO PATIENTS [...] BE BASED ON THE PRIMARY CLINICAL RECORDS. [facility] [employer] [facility]. provides no warranty or guarantee of the accuracy or completeness of information in this document.
[2024-08-17 07:07] LABS: Basophils Absolute Auto 0.1 10^3/uL (0.0-0.1); Basophils Percent Auto 0.6 % (0.2-2.0); Eosinophils Absolute Auto 0.1 10^3/uL (0.0-0.7); Eosinophils Percent Auto 0.7 % (0.9-7.0); Hematocrit 45.7 % (36.0-48.0); Hemoglobin 15.4 g/dL (12.0-16.0); Immature Granulocytes Abs Auto 0.02 10^3/uL (0.00-0.03); Immature Granulocytes Pct Auto 0.2 % (0.0-0.5); Lymphocytes Absolute Auto 2.5 10^3/uL (1.2-3.8); Lymphocytes Percent Auto 28.1 % (20.5-60.0); Mean Corpuscular HGB Conc 33.7 g/dL (29.9-35.2); Mean Corpuscular Hemoglobin 31.9 pg (26.7-34.0); Mean Corpuscular Volume 94.6 fL (81.0-99.0); Mean Platelet Volume 10.7 fL (9.5-13.5); Monocytes Absolute Auto 0.7 10^3/uL (0.3-0.8); Neutrophils Absolute Auto 5.6 10^3/uL (1.4-6.5); Neutrophils Percent Auto 62.4 % (43.0-75.0); Platelet Count 183 10^3/uL (150-450); Red Blood Count 4.83 10^6/uL (4.20-5.40); Red Cell Distribution Width 12.8 % (11.0-15.0)
[2024-08-17 07:20] LABS: Alanine Aminotransferase 11 U/L (14-59); Albumin Level 3.8 g/dL (3.4-5.0); Alkaline Phosphatase 98 U/L (46-116); Anion Gap 14.9; Aspartate Amino Transferase 21 U/L (15-37); Bilirubin Total 0.5 mg/dL (0.2-1.0); Calcium 9.3 mg/dL (8.5-10.1); Carbon Dioxide 27.3 mmol/L (21.0-32.0); Chloride 106 mmol/L (98-107); Estimated GFR (African America >60 (>=60 mL/min/1.73m^2); Estimated GFR (Non-African Ame >60 (>=60 mL/min/1.73m^2); Globulin 3.8 g/dL; Glucose 90 mg/dL (74-106); Potassium 4.2 mmol/L (3.5-5.1); Sodium 144 mmol/L (136-145); Total Protein 7.6 g/dL (6.4-8.2)
== END 2024-08-17 06:32 | disposition home or self-care (01) ==
LOC: LAB 06:32
PROVIDERS: PCP Family Medicine; Visit Provider Family Medicine
DX: Z01.89 Encounter for other specified special examinations (principal); Q25.6 Stenosis of pulmonary artery; I73.9 Peripheral vascular disease, unspecified; Z79.899 Other long term (current) drug therapy
CPT/HCPCS: 36415; 80053; 85025